=== PATIENT | female | born 1940 | race Caucasian/White ===

== ENCOUNTER → 2017-05-27 | Outpatient (CLI) | payer OTHER, BC ==
[~2017-05-27] MED LIST: ANT25 PO; ASCA500 PO; CHOL1TAB4 PO; CYM/30 PO; DICL1GEL12 TD; ESCI1TAB9 PO; EST5 PO; EVENCAP6 PO; FLUT0.0529 NAE; INTE1KIT4 IM; IODINE PO; LEVO75TA PO; MISCCAP80 PO; MULT-513 PO; MULT-663 PO; [UNRECOGNIZED DRUG - CODE] PO
[2017-05-27 12:20] LABS: BASO % 0.3 %; BASO ABS # 0.02 K/uL (0-0.2); COMPLETE YES; EOS % 10.2 %; HEMATOCRIT 42.6 % (37-47); LYMPH % 20.9 %; LYMPH ABS # 1.33 K/uL (1.2-3.4); MEAN CELL VOLUME 92.4 fL (80-100); MEAN CORPUSCULAR HEMOGLOBIN 30.2 pg (25-34); MEAN CORPUSCULAR HGB CONC 32.6 g/dl (32-36); MEAN PLATELET VOLUME 10.4 fL (7.4-10.4); MONO % 11.3 %; NEUT % 57.3 %; PLATELET COUNT 285 K/uL (130-400); RED BLOOD COUNT 4.61 M/uL (4.2-5.4); WHITE BLOOD COUNT 6.37 K/uL (4.8-10.8)
[2017-05-27 12:41] LABS: ALT/SGPT 29 U/L (12-78); AST/SGOT 15 U/L (15-37); BLOOD UREA NITROGEN 22 mg/dl (7-18); BUN/CREATININE RATIO 28.6 (10-20); CALCIUM 9.2 mg/dl (8.5-10.1); CARBON DIOXIDE 29 mmol/L (21-32); CHLORIDE 106 mmol/L (98-107); CREATININE 0.78 mg/dl (0.60-1.20); GLUCOSE 83 mg/dl (70-99); POTASSIUM 4.3 mmol/L (3.5-5.1); SODIUM 141 mmol/L (136-145)
[2017-05-27 12:51] LABS: ALKALINE PHOSPHATASE 83 U/L (45-117); THYROID STIMULATING HORMONE 0.637 uIu/ml (0.300-4.500)
== END | disposition home or self-care (01) ==
LOC: C.LAB1850 10:27
PROVIDERS: ATTEND Internal Medicine
DX: G35 Multiple sclerosis (principal); E55.9 Vitamin D deficiency, unspecified; E03.9 Hypothyroidism, unspecified

== ENCOUNTER → 2017-07-05 | Outpatient (CLI) | payer OTHER, BC | END | disposition home or self-care (01) | LOC: C.MAMM 11:17 | PROVIDERS: ATTEND Internal Medicine | DX: M85.851 Other specified disorders of bone density and structure, right thigh (principal); M85.852 Other specified disorders of bone density and structure, left thigh ==

== ENCOUNTER → 2017-11-24 | Outpatient (CLI) | payer OTHER, BC ==
[2017-11-24 13:11] LABS: BASO % 0.6 %; BASO ABS # 0.06 K/uL (0-0.2); EOS ABS # 0.74 K/uL (0-0.5); HEMOGLOBIN 15.1 g/dL (12.0-16.0); IG# 0.01 K/uL (0.00-0.02); LYMPH % 17.5 %; LYMPH ABS # 1.84 K/uL (1.2-3.4); MEAN CELL VOLUME 91.1 fL (80-100); MEAN CORPUSCULAR HEMOGLOBIN 30.6 pg (25-34); MEAN CORPUSCULAR HGB CONC 33.6 g/dl (32-36); MEAN PLATELET VOLUME 10.2 fL (7.4-10.4); MONO % 7.2 %; MONO ABS # 0.76 K/uL (0.11-0.59); NEUT % 67.6 %; NEUT ABS # 7.13 K/uL (1.4-6.5); PLATELET COUNT 301 K/uL (130-400); RED CELL DISTRIBUTION WIDTH CV 13.9 % (11.5-14.5); RED CELL DISTRIBUTION WIDTH SD 46.5 fL (36.4-46.3); WHITE BLOOD COUNT 10.54 K/uL (4.8-10.8)
[2017-11-24 13:39] LABS: ALBUMIN 3.8 gm/dl (3.4-5.0); ALT/SGPT 32 U/L (12-78); BLOOD UREA NITROGEN 26 mg/dl (7-18); CARBON DIOXIDE 27 mmol/L (21-32); CREATININE 0.93 mg/dl (0.60-1.20); GLUCOSE 84 mg/dl (70-99); POTASSIUM 4.7 mmol/L (3.5-5.1); SODIUM 139 mmol/L (136-145)
[2017-11-24 13:50] LABS: ALKALINE PHOSPHATASE 78 U/L (45-117); AST/SGOT 14 U/L (15-37); TOTAL PROTEIN 7.3 gm/dl (6.4-8.2)
== END | disposition home or self-care (01) ==
LOC: C.LAB1850 11:36
PROVIDERS: ATTEND Internal Medicine
DX: G35 Multiple sclerosis (principal); E03.9 Hypothyroidism, unspecified; E55.9 Vitamin D deficiency, unspecified

== ENCOUNTER 2021-06-09 14:49 | Inpatient (IN) ==
--- NOTE | 2021-06-09 15:27 | Emergency Department Note ---
History of Present Illness General Chief complaint: Fall Stated complaint: FALL Time Seen by Provider: 06/09/21 15:00 History of Present Illness Provider complaint: Fall left upper extremity left shoulder pain Onset (ago): day(s) 1 Location: upper extremity and left Radiation: non-radiation Severity: severe Maximum Pain Intensity: 8 Current Pain Intensity: 8 Quality: + aching and + sharp Relieved By: + immobilization Exacerbated By: + movement Associated symptoms: no chest pain, no cough, no fever/chills, no headaches, no nausea/vomiting, no shortness of breath or no weakness 81-year-old female presents emergency department for fall. Patient reports she fell today because she felt like her legs gave out. Patient does have a history of MS. Patient states she is not sure if she hit her head. Patient is currently reporting pain in her left upper extremity left shoulder. Pain is made worse by movement made better by immobilization. No chest pain or difficulty breathing. Home Medications Medication Instructions Recorded Confirmed Type multivitamin (Daily Multi-Vitamin) 1 tab PO QAM 04/06/19 06/09/21 History ascorbic acid (vitamin C) 500 mg 500 mg PO DAILY cap 04/19/19 06/09/21 History capsule cetirizine 10 mg tablet 10 mg PO DAILY PRN #90 tab 06/14/19 06/09/21 Rx albuterol sulfate 90 mcg/actuation 1 puffs INH Q6H PRN #8.5 gm 08/31/19 06/09/21 Rx aerosol inhaler (Proventil HFA) cholecalciferol (vitamin D3) 1,250 50,000 units PO WEEKLY #12 cap 10/19/19 06/09/21 Rx mcg (50,000 unit) capsule oxybutynin chloride 10 mg 10 mg PO DAILY #90 tab 01/15/20 06/09/21 Rx tablet,extended release 24 hr duloxetine 30 mg capsule,delayed 30 mg PO QPM #90 cap 04/04/21 06/09/21 Rx release amoxicillin 875 mg-potassium 1 tab PO BID #14 tab 06/09/21 Rx clavulanate 125 mg tablet (Augmentin) levothyroxine 75 mcg tablet 75 mcg PO DAILY 06/09/21 06/09/21 History oxycodone 5 mg tablet 5 mg PO Q8H PRN #11 tab 06/09/21 Rx Allergies Allergy/AdvReac Type Severity Reaction Status Date / Time animal dander Allergy Intermediate SNEEZING, Verified 06/09/21 16:08 CONGESTION gluten Allergy Intermediate GLUTEN Verified 06/09/21 16:08 INTOLERANT-GI UPSET ibuprofen Allergy Mild ? UNKNOWN Verified 06/09/21 16:08 - "SO LONG AGO" Sulfa (Sulfonamide Allergy Unknown DIARRHEA Verified 06/09/21 16:08 Antibiotics) donepezil AdvReac Intermediate nightmares Verified 06/09/21 16:08 lactase [From Dairy Aid] AdvReac Intermediate Gastrointestinal Verified 06/09/21 16:08 Upset baclofen AdvReac Unknown CAN'T Verified 06/09/21 16:08 REMEMBER chocolate flavor AdvReac Unknown CAN'T Verified 06/09/21 16:08 REMEMBER milk AdvReac Unknown GI UPSET Verified 06/09/21 16:08 sulfabenzamide AdvReac Unknown CAN'T Verified 06/09/21 16:08 REMEMBER sulfamethoxazole AdvReac Unknown CAN'T Verified 06/09/21 16:08 [From Bactrim] REMEMBER trimethoprim [From Bactrim] AdvReac Unknown CAN'T Verified 06/09/21 16:08 REMEMBER Past Med/Surg History Medical History Actinic keratosis Allergic rhinitis Asthma Bee sting Chest pain Cholelithiasis Depression with anxiety Facial swelling Gait disturbance Hypothyroidism Lumbar canal stenosis Multiple sclerosis Multiple sclerosis Osteopenia Peripheral neuropathy Vitamin D deficiency disease Surgical History No pertinent past surgical history Family History Father Lung cancer Mother Brain cancer Grandmother Stroke Denies family history of Ovarian cancer Prostate cancer Myocardial infarction Breast cancer Colorectal cancer Social History Smoking Status: Never smoker Second Hand Exposure: Yes; Hx Alcohol Use: Yes Hx Substance Use: No Preferred Language: Belarusian Communication Ability: Effective Visual Impairment: Partially Limited Hearing Ability: Normal Beliefs That Will Affect Care: None marital status: Current Living Situation: Spouse current occupational status: retired How many Children do You have: 3 How many Children do You have Comment: 3 boys Feels Safe at Home: Yes Childhood Exposure to Second-Hand Smoke: No during the past year weight has: remained stable Dental Care, Regularly: Yes Physical Activity Frequency: 3-4 Times per Week Seatbelt Use: always Sunscreen Use: Yes Review of Systems A total of 10 systems reviewed and were otherwise negative Physical Exam Vital Signs Vital Signs - 24 hr 06/09/21 14:56 06/09/21 15:16 06/09/21 16:59 Temperature 36.1 C L Temperature Source Rectal Pulse Rate 86 83 Pulse Rate [Apical] 73 Pulse Rhythm Regular Respiratory Rate 16 20 14 Respiratory Effort / Characteristics Non-Labored Respiratory Depth Normal Respiratory Pattern Regular Blood Pressure 126/81 Blood Pressure [Right Arm] 138/78 Blood Pressure Mean 96 Blood Pressure Mean [Right Arm] 98 Blood Pressure Position [Right Arm] Lying Pulse Oximetry 97 96 98 Oxygen Delivery Method Room Air Room Air Room Air Sepsis Recent Fever Within 48 Hours No Sepsis New/Unexplained Change in Mental Status No Sepsis Action Taken by Nursing No Action Required 06/09/21 17:00 06/09/21 17:30 06/09/21 18:00 Temperature Temperature Source Pulse Rate 70 70 91 H Pulse Rate [Apical] Pulse Rhythm Respiratory Rate 17 12 14 Respiratory Effort / Characteristics Respiratory Depth Respiratory Pattern Blood Pressure 133/77 124/76 152/85 H Blood Pressure [Right Arm] Blood Pressure Mean 95 92 107 Blood Pressure Mean [Right Arm] Blood Pressure Position [Right Arm] Pulse Oximetry 99 95 98 Oxygen Delivery Method Sepsis Recent Fever Within 48 Hours Sepsis New/Unexplained Change in Mental Status Sepsis Action Taken by Nursing 06/09/21 18:07 06/09/21 18:30 06/09/21 19:00 Temperature Temperature Source Pulse Rate 91 H 90 Pulse Rate [Apical] 92 H Pulse Rhythm Respiratory Rate 20 12 15 Respiratory Effort / Characteristics Non-Labored Respiratory Depth Normal Respiratory Pattern Blood Pressure 144/86 H 144/92 H Blood Pressure [Right Arm] 145/92 H Blood Pressure Mean 105 109 Blood Pressure Mean [Right Arm] 109 Blood Pressure Position [Right Arm] Pulse Oximetry 100 97 96 Oxygen Delivery Method Room Air Sepsis Recent Fever Within 48 Hours Sepsis New/Unexplained Change in Mental Status Sepsis Action Taken by Nursing 06/09/21 20:00 Temperature Temperature Source Pulse Rate Pulse Rate [Apical] 88 Pulse Rhythm Respiratory Rate 20 Respiratory Effort / Characteristics Non-Labored Respiratory Depth Normal Respiratory Pattern Blood Pressure Blood Pressure [Right Arm] 130/86 Blood Pressure Mean Blood Pressure Mean [Right Arm] 100 Blood Pressure Position [Right Arm] Sitting Pulse Oximetry 96 Oxygen Delivery Method Room Air Sepsis Recent Fever Within 48 Hours Sepsis New/Unexplained Change in Mental Status Sepsis Action Taken by Nursing Physical Exam HENT: Exam performed. -Head: Normocephalic and atraumatic. -Right Ear: External ear normal. No mastoid tenderness. -Left Ear: External ear normal. No mastoid tenderness. -Mouth/Throat: The oropharynx is clear and moist. No trismus in the jaw. No dental abscesses or uvula swelling. No oropharyngeal exudate or tonsillar abscesses. EYES: Conjunctivae and EOM are normal. Pupils are equal, round, and reactive to light. Right eye exhibits no discharge. Left eye exhibits no discharge. No scleral icterus. NECK: Normal range of motion. Neck supple. No JVD present. No spinous process tenderness present. CV: Normal rate, regular rhythm, normal heart sounds and intact distal pulses. There is no peripheral edema. Palpable radial pulses bue. PULM/CHEST: Effort normal and breath sounds normal. No respiratory distress. No stridor. She has no wheezes. She has no rales. -Chest Wall: She exhibits no tenderness. ABD: The abdomen is soft. There is no tenderness. MUSC/SKEL: Pelvis stable. Pain on palpation of the left shoulder and proximal humerus. LYMPH: No cervical adenopathy. NEURO: She is alert and oriented to person, place, and time.No cranial nerve d eficit or sensory deficit. SKIN: Diaphoretic. Course Course 1500: The patient was evaluated in room B3. A complete history and physical exam was performed Cardiac monitoring: An order was placed for continuous cardiac monitoring. The monitor shows a rate of 90 with sinus rhythm 1743: Vital signs stable. Imaging shows a left humerus fracture. Imaging also shows a developing diverticulitis. Labs within normal limits with exception of mild leukocytosis of 12.4. Discussed the case with the patient and her at bedside. Patient was offered inpatient stay for pain control and to be evaluated by orthopedics however she states she prefers to be discharged home. at bedside is in agreement. Discussed the case with on-call orthopedist Dr. Beaver who reviewed the patient's films himself and stated that she can follow-up with him tomorrow morning. Her contact information was given to him. Patient will be discharged with prescriptions for Augmentin for diverticulitis as well as analgesia. First dose of Augmentin given the emergency department. Analgesia home pack and Augmentin home pack given for the patient. DISCHARGE - Plan of care discussed with patient and questions answered. The patient was given both verbal and printed discharge instructions. The patient verbalized understanding and ability to comply. The patient is to seek outpatient follow up as noted in the discharge instructions. The patient verbalized understanding and ability to comply. The patient is discharged in stable condition. The patient was instructed to return for worsening symptoms. 1936: Vital signs stable. Patient was not able to tolerate walking with an arm sling using her cane given her severe MS. states he cannot take care of the patient at home and patient is now nervous about being discharged home. Discussed with [facility] hospitalist Dr. Melendrez who will admit the patient. Administered Medications Acetaminophen (Acetaminophen 325 Mg Tab) 650 mg PO Q4H PRN PRN Reason: pain/fever Stop: 07/09/21 22:34 Last Admin: 06/09/21 23:03 Dose: 650 mg Documented by: [id number] Duloxetine HCl (Duloxetine Hcl 30 Mg Cap) 30 mg PO QPM DOTTY Stop: 07/09/21 22:34 Last Admin: 06/09/21 23:08 Dose: 30 mg Documented by: [id number] Enoxaparin Sodium (Enoxaparin Inj 40 Mg/0.4 Ml Syr) 40 mg SQ Q24H DOTTY Stop: 07/09/21 22:59 Last Admin: 06/09/21 23:08 Dose: 40 mg Documented by: [id number] Discontinued Medications Amoxicillin/Clavulanate Potassium (Amoxicillin/Clavulanate 875 Mg Tab) 1 tab PO NOW ONE Stop: 06/09/21 17:40 Last Admin: 06/09/21 18:35 Dose: 1 tab Documented by: [id number] Amoxicillin/Clavulanate Potassium (Amoxicillin/Clavulanate 875mg Home Pack) 1 homepack PO ONE ONE Stop: 06/09/21 17:40 Last Admin: 06/09/21 19:13 Dose: 1 homepack Documented by: [id number] Sodium Chloride (Nss) 500 mls @ 125 mls/hr IV .Q4H DOTTY Stop: 07/09/21 15:14 Last Admin: 06/09/21 22:48 Dose: Not Given Documented by: [id number] Infusion: 06/09/21 19:37 Dose: 125 mls/hr Documented by: [id number] Infusion: 06/09/21 19:15 Dose: 125 mls/hr Documented by: [id number] Admin: 06/09/21 15:30 Dose: 125 mls/hr Documented by: [id number] Ioversol (Optiray 320 100ml) 94 ml IV ONCE ONE Stop: 06/09/21 16:33 Last Admin: 06/09/21 16:32 Dose: 94 ml Documented by: [id number] Oxycodone/Acetaminophen (Percocet 5/325mg Homepack) 1 homepack PO UD ONE Stop: 06/09/21 17:40 Last Admin: 06/09/21 19:13 Dose: 1 homepack Documented by: [id number] Oxycodone/Acetaminophen (Oxycodone/Acetaminophen 5mg/325mg Tab) 1 tab PO NOW STA Stop: 06/09/21 17:43 Last Admin: 06/09/21 18:10 Dose: 1 tab Documented by: [id number] Medical Decision Making Laboratory Data Result diagrams: 06/09/21 15:30 06/09/21 15:30 Lab Results 06/09/21 06/09/21 06/09/21 Range/Units 15:21 15:30 15:30 WBC 12.35 H (4.8-10.8) K/uL RBC 4.70 (4.2-5.4) M/uL Hgb 14.7 (12.0-16.0) g/dL Hct 43.6 (37-47) % MCV 92.8 (80-100) fL MCH 31.3 (25-34) pg MCHC 33.7 (32-36) g/dL RDW Std Deviation 44.8 (36.4-46.3) fL RDW Coeff of Kelsie 13.1 (11.5-14.5) % Plt Count 282 (130-400) K/uL MPV 9.9 (7.4-10.4) fL Immature Gran % (Auto) 0.1 % Neut % (Auto) 82.4 % Lymph % (Auto) 9.6 % [place] % (Auto) 6.7 % Eos % (Auto) 1.0 % Baso % (Auto) 0.2 % Neut # (Auto) 10.18 H (1.4-6.5) K/uL Lymph # (Auto) 1.19 L (1.2-3.4) K/uL [place] # (Auto) 0.83 H (0.11-0.59) K/uL Eos # (Auto) 0.12 (0-0.5) K/uL Baso # (Auto) 0.02 (0-0.2) K/uL Immature Gran # (Auto) 0.01 (0.00-0.02) K/uL PT 10.0 (9.0-12.0) Seconds INR 1.0 (0.9-1.1) APTT 24.2 (21.0-31.0) Seconds PTT Ratio 0.9 Sodium (136-145) mmol/L Potassium (3.5-5.1) mmol/L Chloride (98-107) mmol/L Carbon Dioxide (21-32) mmol/L Anion Gap (3-11) BUN (7-18) mg/dl Creatinine (0.6-1.2) mg/dl Est Cr Clr Drug Dosing ml/min Est GFR ( Amer) ml/min Est GFR (Non-Af Amer) ml/min BUN/Creatinine Ratio (10-20) Glucose (70-99) mg/dl POC Glucose 115 H (70-99) mg/dl Calcium (8.5-10.1) mg/dl Total Creatine Kinase (26-192) U/L Troponin I (0-0.045) ng/ml Urine Color Urine Appearance (Clear) Urine pH (4.5-7.5) Ur Specific [place] (1.000-1.030) Urine Protein (Negative) Urine Glucose (UA) (Negative) Urine Ketones (Negative) Urine Blood (Negative) Urine Nitrite (Negative) Urine Bilirubin (Negative) Urine Urobilinogen (Negative) Ur Leukocyte Esterase (Negative) 06/09/21 06/09/21 Range/Units 15:30 15:36 WBC (4.8-10.8) K/uL RBC (4.2-5.4) M/uL Hgb (12.0-16.0) g/dL Hct (37-47) % MCV (80-100) fL MCH (25-34) pg MCHC (32-36) g/dL RDW Std Deviation (36.4-46.3) fL RDW Coeff of Kelsie (11.5-14.5) % Plt Count (130-400) K/uL MPV (7.4-10.4) fL Immature Gran % (Auto) % Neut % (Auto) % Lymph % (Auto) % [place] % (Auto) % Eos % (Auto) % Baso % (Auto) % Neut # (Auto) (1.4-6.5) K/uL Lymph # (Auto) (1.2-3.4) K/uL [place] # (Auto) (0.11-0.59) K/uL Eos # (Auto) (0-0.5) K/uL Baso # (Auto) (0-0.2) K/uL Immature Gran # (Auto) (0.00-0.02) K/uL PT (9.0-12.0) Seconds INR (0.9-1.1) APTT (21.0-31.0) Seconds PTT Ratio Sodium 139 (136-145) mmol/L Potassium 3.7 (3.5-5.1) mmol/L Chloride 107 (98-107) mmol/L Carbon Dioxide 21 (21-32) mmol/L Anion Gap 11.0 (3-11) BUN 32 H (7-18) mg/dl Creatinine 0.93 (0.6-1.2) mg/dl Est Cr Clr Drug Dosing 43.1 ml/min Est GFR ( Amer) 66.3 ml/min Est GFR (Non-Af Amer) 57.2 ml/min BUN/Creatinine Ratio 34.2 H (10-20) Glucose 130 H (70-99) mg/dl POC Glucose (70-99) mg/dl Calcium 9.1 (8.5-10.1) mg/dl Total Creatine Kinase 49 (26-192) U/L Troponin I < 0.015 (0-0.045) ng/ml Urine Color Yellow Urine Appearance Clear (Clear) Urine pH 5.5 (4.5-7.5) Ur Specific [place] 1.027 (1.000-1.030) Urine Protein Negative (Negative) Urine Glucose (UA) Negative (Negative) Urine Ketones 1+ H (Negative) Urine Blood Negative (Negative) Urine Nitrite Negative (Negative) Urine Bilirubin Negative (Negative) Urine Urobilinogen Negative (Negative) Ur Leukocyte Esterase Negative (Negative) Imaging Data Radiologist's Impression: Cervical Spine CT 06/09/21 15:06 CT SCAN OF THE CERVICAL SPINE CLINICAL HISTORY: Trauma. Fall. COMPARISON STUDY: No priors. TECHNIQUE: CT scan of the cervical spine is performed from the skull base to the upper thoracic spine. Images are reviewed in the axial, sagittal, and coronal planes. IV contrast was not administered for this examination. A dose lowering technique was utilized adhering to the principles of ALARA. CT DOSE: 1501.60 mGy.cm FINDINGS: Skeletal structures: The skeletal structures are osteopenic. There is no evidence of fracture or subluxation involving the cervical spine. Vertebral body height is maintained. There is minimal anterolisthesis at C4-C5. Alignment is otherwise preserved. Anterior osteophytes are seen throughout. The odontoid process and lateral masses are intact. The atlantoaxial articulation is preserved noting productive degenerative change. The spinous processes appear intact. There is mild to moderate multilevel cervical spondylosis. Uncovertebral and facet arthropathy contribute to neural foraminal narrowing at several levels. Intervertebral discs: There is moderate disc space narrowing at C4-C5 and C5-C6. Mild disc space narrowing is seen at the remaining cervical levels. Central canal: Posterior disc osteophyte complexes are seen at all cervical levels between C3-C4 and C5-C6. This likely contributes to multilevel acquired compromise of the central canal. Soft tissues: The prevertebral and paraspinous soft tissues are within normal limits. There is atherosclerotic calcification of the carotid bulbs. Calvarium: The visualized calvarium at the skull base appears intact. Brain parenchyma: Partially visualized brain parenchyma at the skull base is within normal limits. Sinuses and mastoids: The visualized paranasal sinuses are clear. The mastoid air cells are well pneumatized. Lung apices: Clear as visualized. IMPRESSION: 1. There is no evidence of fracture or subluxation involving the cervical spine. 2. Osteopenia and spondylotic change as above. ACT 112: Negative or not required by law. Electronically signed by: Brando Wallace M.D. 06/09/2021 4:52 PM Chest X-Ray 06/09/21 15:08 XR chest 1V portable INDICATION: [place] ^fall . TECHNIQUE: Single frontal radiograph of the chest was obtained. Comparison: Comparison is made to chest one view 11/14/2018 FINDINGS: No lines and tubes are seen. The cardiomediastinal silhouette is normal. The lungs are clear. No evidence of pleural effusion or pneumothorax. Partial visualization of the humeral head/neck fracture better evaluated on dedicated shoulder and humeral radiographs. IMPRESSION: 1. No acute chest disease. 2. For detailed findings of humeral fracture, please see dedicated humerus and shoulder radiographs performed same day. ACT 112: Negative or not required by law. Electronically signed by: Adi Swan M.D. 06/09/2021 4:[address] 06/09/21 15:08 CT SCAN OF THE BRAIN WITHOUT IV CONTRAST CLINICAL HISTORY: Fall. COMPARISON STUDY: MRI of the brain dated 04/04/2018. TECHNIQUE: Unenhanced axial CT scan of the brain is performed from the vertex to the skull base. A dose lowering technique was utilized adhering to the principles of ALARA. FINDINGS: Brain parenchyma: There are age-related involutional changes noting moderate to advanced confluent subcortical and periventricular microangiopathic change. There is no hemorrhage, mass effect, or evidence of acute territorial ischemia by CT criteria. Mcdonough-white matter differentiation is preserved. No extra-axial fluid collection is seen. Ventricles, sulci, cisterns: Prominent secondary to involutional change. Intracranial vasculature: There is atherosclerotic calcification of the cavernous carotid and vertebral arteries. Calvarium: The skeletal structures are osteopenic. No depressed calvarial fracture is identified. Sinuses and mastoids: The visualized paranasal sinuses are clear. The mastoid air cells are well pneumatized. Orbits: The bony orbits are grossly intact. There are bilateral ocular lens implants. IMPRESSION: There is no hemorrhage, mass effect, or evidence of acute territorial ischemia by CT criteria. ACT 112: Negative or not required by law. Electronically signed by: Brando Wallace M.D. 06/09/2021 4:44 PM Humerus X-Ray 06/09/21 15:08 LEFT SHOULDER 2 VIEWS; LEFT HUMERUS 2 VIEWS CLINICAL HISTORY: Fall. Left arm injury. FINDINGS: 2 views of the left shoulder with AP and lateral views of the left humerus are obtained. No prior studies are available for comparison at the time of dictation. The skeletal structures are osteopenic. There is an impacted and comminuted fracture of the left humeral head and neck. There is approximately 7 mm of offset of the humeral shaft at the head/neck junction, as well as displaced fragments of the greater tuberosity. Overlying soft tissue edema is noted. No additional fracture is identified. The glenohumeral and acromioclavicular joints appear maintained. The distal humerus appears intact. The left elbow joint is grossly normal. Imaged left lung parenchyma appears clear noting basilar atelectasis. IMPRESSION: Impacted and comminuted fracture of the left humeral head and neck as above. Electronically signed by: Brando Wallace M.D. 06/09/2021 4:03 PM Shoulder X-Ray 06/09/21 15:08 LEFT SHOULDER 2 VIEWS; LEFT HUMERUS 2 VIEWS CLINICAL HISTORY: Fall. Left arm injury. FINDINGS: 2 views of the left shoulder with AP and lateral views of the left humerus are obtained. No prior studies are available for comparison at the time of dictation. The skeletal structures are osteopenic. There is an impacted and comminuted fracture of the left humeral head and neck. There is approximately 7 mm of offset of the humeral shaft at the head/neck junction, as well as displaced fragments of the greater tuberosity. Overlying soft tissue edema is noted. No additional fracture is identified. The glenohumeral and acromioclavicular joints appear maintained. The distal humerus appears intact. The left elbow joint is grossly normal. Imaged left lung parenchyma appears clear noting basilar atelectasis. IMPRESSION: Impacted and comminuted fracture of the left humeral head and neck as above. Electronically signed by: Brando Wallace M.D. 06/09/2021 4:03 PM Abdomen/Pelvis CT 06/09/21 15:09 CT abd pelvis IV con only CLINICAL HISTORY: fall COMPARISON STUDY: November 06, 2011 TECHNIQUE: A dose lowering technique was utilized adhering to the principles of ALARA. CT DOSE: FINDINGS: Lower chest: Minimal atelectasis is seen at dependent portions of bilateral lower lobes.. Liver: The contrast-enhanced liver is normal in size, contour, and attenuation. There is no intrahepatic biliary ductal dilatation. The hepatic veins and portal veins are patent. Gallbladder: Gallbladder is fluid-filled, dilated with multiple gallstones and measuring 8.7 cm in craniocaudal dimension. No evidence of pericholecystic edema or gallbladder wall thickening. Common bile duct is nondilated. Spleen: Normal in size and attenuation. Pancreas: Unremarkable. Adrenal glands: Unremarkable. Kidneys: There is symmetric renal cortical enhancement. The kidneys are normal in size without hydronephrosis. Pelvic viscera: Urinary bladder is partially decompressed and show normal appe arance. Uterus is atrophic. No fluid is seen within cul-de-sac. Bowel: Small hiatal hernia is seen. Bowel loops are nondilated. Appendix is not well seen. Diverticulosis of the cecum is seen. Cecum is folded anteriorly and superiorly and associated with mild surrounding fat stranding (7/205) and most likely representing developing diverticulitis. Cecal bascule is less likely. Diverticulosis of sigmoid colon is seen without evidence of diverticulitis. Peritoneum: There is no intraperitoneal free air or abdominal ascites. Vasculature: Abdominal aorta is normal in caliber with scattered calcifications of its wall. Adenopathy: Multiple small lymph nodes are seen within retroperitoneal region and mesentery, measuring less than 1 cm in short axis and considered nonpathological by CT size criteria. Skeletal structures: Multilevel degenerative changes of the spine. Mild anterolisthesis of L4 on L5 and L5 on S1 is seen. No definite aggressive osseous lesions are seen. No evidence of acute fracture . IMPRESSION: 1. No acute traumatic injury to the solid organs or vascular structures. Nondilated loops of bowel. 2. Moderate hiatal hernia. 3. Dilated gallbladder. Cholelithiasis without cholecystitis. Findings are stable since prior. 4. Diverticulosis of cecum with surrounding inflammatory changes likely representing developing diverticulitis. Diverticulosis of sigmoid colon is seen without evidence of diverticulitis. 5. Multilevel degenerative changes of the spine and osteopenia. 6. The rest of findings as above. ACT 112: Negative or not required by law. The above report was generated using voice recognition software. It may contain grammatical, syntax or spelling errors. Electronically signed by: Melissa Lindo DO 06/09/2021 5:08 PM Pelvis X-Ray 06/09/21 15:09 SINGLE VIEW PELVIS CLINICAL HISTORY: Fall. FINDINGS: 2 AP, portable, supine pelvic radiographs are correlated with pelvic CT dated 11/06/2011. The skeletal structures are osteopenic. There is no radiographic evidence of acute fracture involving the hips or bony pelvis. Mild to moderate degenerative joint space narrowing is seen in the hips. Degenerative sclerosis is noted in the sacroiliac joints. Spondylotic change is seen in the partially imaged lumbar spine. The overlying soft tissues are within normal limits. Numerous phleboliths are seen in the pelvis. There is atherosclerotic calcification of the femoral arteries. IMPRESSION: No acute bony abnormality is identified. Electronically signed by: Brando Wallace M.D. 06/09/2021 4:01 PM Femur X-Ray 06/09/21 16:42 LEFT FEMUR 3 VIEWS CLINICAL HISTORY: Fall. Left leg pain. FINDINGS: AP, frog-leg, and crosstable lateral views of the left femur are correlated with pelvic radiograph performed the same day 06/09/2021. The skeletal structures are osteopenic. There is no radiographic evidence of left femoral fracture. The visualized left hemipelvis appears intact. Degenerative joint space narrowing is noted in the left hip. The overlying soft tissues are normal as imaged. Excreted IV contrast is seen within the distal left ureter and the partially imaged bladder. Atherosclerotic calcification is noted in the left femoral artery. IMPRESSION: There is no radiographic evidence of left femoral fracture. Electronically signed by: Brando Wallace M.D. 06/09/2021 5:02 PM ECG Data Indication: + syncope Rate (beats per minute): 86 Rhythm: + normal sinus ECG Intervals/blocks: + Normal [place] and + Normal QT-c Additional Comments: QRS 78 MDM Narrative 1500: The patient was evaluated in room B3. A complete history and physical exam was performed Cardiac monitoring: An order was placed for continuous cardiac monitoring. The monitor shows a rate of 90 with sinus rhythm 1743: Vital signs stable. Imaging shows a left humerus fracture. Imaging also shows a developing diverticulitis. Labs within normal limits with exception of mild leukocytosis of 12.4. Discussed the case with the patient and her at bedside. Patient was offered inpatient stay for pain control and to be evaluated by orthopedics however she states she prefers to be discharged home. at bedside is in agreement. Discussed the case with on-call orthopedist Dr. Beaver who reviewed the patient's films himself and stated that she can follow-up with him tomorrow morning. Her contact information was given to him. Patient will be discharged with prescriptions for Augmentin for diverticulitis as well as analgesia. First dose of Augmentin given the emergency department. Analgesia home pack and Augmentin home pack given for the patient. DISCHARGE - Plan of care discussed with patient and questions answered. The patient was given both verbal and printed discharge instructions. The patient verbalized understanding and ability to comply. The patient is to seek outpatient follow up as noted in the discharge instructions. The patient verbalized understanding and ability to comply. The patient is discharged in stable condition. The patient was instructed to return for worsening symptoms. 1936: Vital signs stable. Patient was not able to tolerate walking with an arm sling using her cane given her severe MS. states he cannot take care of the patient at home and patient is now nervous about being discharged home. Discussed with [facility] hospitalist Dr. Melendrez who will admit the patient. Impression & Plan Fracture, humerus, Diverticulitis Discharge Plan Visit Data Chief Complaint: Fall Stated Complaint: FALL ED Provider: Jus Berger Discharge Problem: Fracture, humerus, Diverticulitis Patient Disposition: Being Evaluated by Hospitalist Discharge Instructions Interventions: ED Discharge Assessment Last Done: 06/09/21 22:00
[2021-06-09] MEDS: SODIUM CHLORIDE 0.9% 500 ML IV SCH ×2 (15:30→22:48)
[2021-06-09 15:49] LABS: Basophils # (auto) 0.02 K/uL (0-0.2); Basophils % (auto) 0.2 %; Eosinophils # (auto) 0.12 K/uL (0-0.5); Hematocrit (blood only) 43.6 % (37-47); Hemoglobin 14.7 g/dL (12.0-16.0); Immature Granulocytes # (auto) 0.01 K/uL (0.00-0.02); Immature Granulocytes % (auto) 0.1 %; Lymphocytes # (auto) 1.19 K/uL (1.2-3.4); Lymphocytes % (auto) 9.6 %; Mean Corpuscular Hemoglobin 31.3 pg (25-34); Mean Corpuscular Hgb Conc 33.7 g/dL (32-36); Mean Corpuscular Volume 92.8 fL (80-100); Mean Platelet Volume 9.9 fL (7.4-10.4); Monocytes # (auto) 0.83 K/uL (0.11-0.59); Monocytes % (auto) 6.7 %; Neutrophils # (auto) 10.18 K/uL (1.4-6.5); Neutrophils % (auto) 82.4 %; Platelet Count 282 K/uL (130-400); RDW Coefficient of Variation 13.1 % (11.5-14.5); RDW Standard Deviation 44.8 fL (36.4-46.3); White Blood Count 12.35 K/uL (4.8-10.8)
[2021-06-09 15:57] LABS: Appearance Urine Clear (Clear); Bilirubin Urine Negative (Negative); Blood Urine Negative (Negative); Color Urine Yellow; Glucose Urine UA Negative (Negative); Ketones Urine 1+ (Negative); Leukocyte Esterase Urine Negative (Negative); Nitrite Urine Negative (Negative); Protein Urine Negative (Negative); Specific Gravity Urine 1.027 (1.000-1.030); Urobilinogen Urine Negative (Negative); pH Urine 5.5 (4.5-7.5)
--- NOTE | 2021-06-09 16:03 | XRay Report ---
SINGLE VIEW PELVIS CLINICAL HISTORY: Fall. FINDINGS: 2 AP, portable, supine pelvic radiographs are correlated with pelvic CT dated 11/06/2011. Th e skeletal structures are osteopenic. There is no radiographic evidence of acute fracture involving t he hips or bony pelvis. Mild to moderate degenerative joint space narrowing is seen in the hips. Dege nerative sclerosis is noted in the sacroiliac joints. Spondylotic change is seen in the partially breanne ged lumbar spine. The overlying soft tissues are within normal limits. Numerous phleboliths are seen in the pelvis. There is atherosclerotic calcification of the femoral arteries. IMPRESSION: No acute bony abnormality is identified. Electronically signed by: Brando Wallace M.D. 06/09/2021 4:01 PM
[2021-06-09 16:04] LABS: Partial Thromboplastin Ratio 0.9; Partial Thromboplastin Time 24.2 Seconds (21.0-31.0)
--- NOTE | 2021-06-09 16:05 | XRay Report ---
LEFT SHOULDER 2 VIEWS; LEFT HUMERUS 2 VIEWS CLINICAL HISTORY: Fall. Left arm injury. FINDINGS: 2 views of the left shoulder with AP and lateral views of the left humerus are obtained. No prior studies are available for comparison at the time of dictation. The skeletal structures are ost eopenic. There is an impacted and comminuted fracture of the left humeral head and neck. There is shea roximately 7 mm of offset of the humeral shaft at the head/neck junction, as well as displaced fragme nts of the greater tuberosity. Overlying soft tissue edema is noted. No additional fracture is identi fied. The glenohumeral and acromioclavicular joints appear maintained. The distal humerus appears int act. The left elbow joint is grossly normal. Imaged left lung parenchyma appears clear noting basilar atelectasis. IMPRESSION: Impacted and comminuted fracture of the left humeral head and neck as above. Electronically signed by: Brando Wallace M.D. 06/09/2021 4:03 PM
--- NOTE | 2021-06-09 16:05 | XRay Report ---
XR chest 1V portable INDICATION: [place] ^fall . TECHNIQUE: Single frontal radiograph of the chest was obtained. Comparison: Comparison is made to chest one view 11/14/2018 FINDINGS: No lines and tubes are seen. The cardiomediastinal silhouette is normal. The lungs are clear. No evid ence of pleural effusion or pneumothorax. Partial visualization of the humeral head/neck fracture better evaluated on dedicated shoulder and hu meral radiographs. IMPRESSION: 1. No acute chest disease. 2. For detailed findings of humeral fracture, please see dedicated humerus and shoulder radiographs performed same day. ACT 112: Negative or not required by law. Electronically signed by: Adi Swan M.D. 06/09/2021 4:04 PM
[2021-06-09 16:08] LABS: BUN Creatinine Ratio 34.2 (10-20); Blood Urea Nitrogen 32 mg/dl (7-18); Calcium 9.1 mg/dl (8.5-10.1); Carbon Dioxide 21 mmol/L (21-32); Chloride 107 mmol/L (98-107); Creatinine Clr Calc Pharmacy 43.1 ml/min; Est GFR (African American) 66.3 ml/min; Est GFR (Non-African American) 57.2 ml/min; Glucose 130 mg/dl (70-99); Potassium 3.7 mmol/L (3.5-5.1); Sodium 139 mmol/L (136-145)
[2021-06-09 16:12] LABS: Creatine Kinase 49 U/L (26-192); Troponin I < 0.015 ng/ml (0-0.045)
[2021-06-09] MEDS ORDERED: OPTIRAY 320 100ml IV ONE (16:32)
--- NOTE | 2021-06-09 16:45 | CT Scan Report ---
CT SCAN OF THE BRAIN WITHOUT IV CONTRAST CLINICAL HISTORY: Fall. COMPARISON STUDY: MRI of the brain dated 04/04/2018. TECHNIQUE: Unenhanced axial CT scan of the brain is performed from the vertex to the skull base. A do se lowering technique was utilized adhering to the principles of ALARA. FINDINGS: Brain parenchyma: There are age-related involutional changes noting moderate to advanced confluent s ubcortical and periventricular microangiopathic change. There is no hemorrhage, mass effect, or evide nce of acute territorial ischemia by CT criteria. Mcdonough-white matter differentiation is preserved. No extra-axial fluid collection is seen. Ventricles, sulci, cisterns: Prominent secondary to involutional change. Intracranial vasculature: There is atherosclerotic calcification of the cavernous carotid and vertebr al arteries. Calvarium: The skeletal structures are osteopenic. No depressed calvarial fracture is identified. Sinuses and mastoids: The visualized paranasal sinuses are clear. The mastoid air cells are well pneu matized. Orbits: The bony orbits are grossly intact. There are bilateral ocular lens implants. IMPRESSION: There is no hemorrhage, mass effect, or evidence of acute territorial ischemia by CT kirit black. ACT 112: Negative or not required by law. Electronically signed by: Brando Wallace M.D. 06/09/2021 4:44 PM
--- NOTE | 2021-06-09 16:53 | CT Scan Report ---
CT SCAN OF THE CERVICAL SPINE CLINICAL HISTORY: Trauma. Fall. COMPARISON STUDY: No priors. TECHNIQUE: CT scan of the cervical spine is performed from the skull base to the upper thoracic spine . Images are reviewed in the axial, sagittal, and coronal planes. IV contrast was not administered fo r this examination. A dose lowering technique was utilized adhering to the principles of ALARA. CT DOSE: 1501.60 mGy.cm FINDINGS: Skeletal structures: The skeletal structures are osteopenic. There is no evidence of fracture or subl uxation involving the cervical spine. Vertebral body height is maintained. There is minimal anterolis thesis at C4-C5. Alignment is otherwise preserved. Anterior osteophytes are seen throughout. The odon toid process and lateral masses are intact. The atlantoaxial articulation is preserved noting product nigel degenerative change. The spinous processes appear intact. There is mild to moderate multilevel ce rvical spondylosis. Uncovertebral and facet arthropathy contribute to neural foraminal narrowing at s everal levels. Intervertebral discs: There is moderate disc space narrowing at C4-C5 and C5-C6. Mild disc space narr owing is seen at the remaining cervical levels. Central canal: Posterior disc osteophyte complexes are seen at all cervical levels between C3-C4 and C5-C6. This likely contributes to multilevel acquired compromise of the central canal. Soft tissues: The prevertebral and paraspinous soft tissues are within normal limits. There is athero sclerotic calcification of the carotid bulbs. Calvarium: The visualized calvarium at the skull base appears intact. Brain parenchyma: Partially visualized brain parenchyma at the skull base is within normal limits. Sinuses and mastoids: The visualized paranasal sinuses are clear. The mastoid air cells are well pneu matized. Lung apices: Clear as visualized. IMPRESSION: 1. There is no evidence of fracture or subluxation involving the cervical spine. 2. Osteopenia and spondylotic change as above. ACT 112: Negative or not required by law. Electronically signed by: Brando Wallace M.D. 06/09/2021 4:52 PM
--- NOTE | 2021-06-09 17:03 | XRay Report ---
LEFT FEMUR 3 VIEWS CLINICAL HISTORY: Fall. Left leg pain. FINDINGS: AP, frog-leg, and crosstable lateral views of the left femur are correlated with pelvic rad iograph performed the same day 06/09/2021. The skeletal structures are osteopenic. There is no radiogr aphic evidence of left femoral fracture. The visualized left hemipelvis appears intact. Degenerative joint space narrowing is noted in the left hip. The overlying soft tissues are normal as imaged. Excr eted IV contrast is seen within the distal left ureter and the partially imaged bladder. Atherosclero tic calcification is noted in the left femoral artery. IMPRESSION: There is no radiographic evidence of left femoral fracture. Electronically signed by: Brando Wallace M.D. 06/09/2021 5:02 PM
--- NOTE | 2021-06-09 17:10 | CT Scan Report ---
CT abd pelvis IV con only CLINICAL HISTORY: fall COMPARISON STUDY: November 06, 2011 TECHNIQUE: A dose lowering technique was utilized adhering to the principles of ALARA. CT DOSE: FINDINGS: Lower chest: Minimal atelectasis is seen at dependent portions of bilateral lower lobes.. Liver: The contrast-enhanced liver is normal in size, contour, and attenuation. There is no intrahepa tic biliary ductal dilatation. The hepatic veins and portal veins are patent. Gallbladder: Gallbladder is fluid-filled, dilated with multiple gallstones and measuring 8.7 cm in cr aniocaudal dimension. No evidence of pericholecystic edema or gallbladder wall thickening. Common félix e duct is nondilated. Spleen: Normal in size and attenuation. Pancreas: Unremarkable. Adrenal glands: Unremarkable. Kidneys: There is symmetric renal cortical enhancement. The kidneys are normal in size without hydron ephrosis. Pelvic viscera: Urinary bladder is partially decompressed and show normal appearance. Uterus is atrop hic. No fluid is seen within cul-de-sac. Bowel: Small hiatal hernia is seen. Bowel loops are nondilated. Appendix is not well seen. Diverticul osis of the cecum is seen. Cecum is folded anteriorly and superiorly and associated with mild surroun ding fat stranding (7/205) and most likely representing developing diverticulitis. Cecal bascule is l ess likely. Diverticulosis of sigmoid colon is seen without evidence of diverticulitis. Peritoneum: There is no intraperitoneal free air or abdominal ascites. Vasculature: Abdominal aorta is normal in caliber with scattered calcifications of its wall. Adenopathy: Multiple small lymph nodes are seen within retroperitoneal region and mesentery, measur ing less than 1 cm in short axis and considered nonpathological by CT size criteria. Skeletal structures: Multilevel degenerative changes of the spine. Mild anterolisthesis of L4 on L5 a nd L5 on S1 is seen. No definite aggressive osseous lesions are seen. No evidence of acute fracture . IMPRESSION: 1. No acute traumatic injury to the solid organs or vascular structures. Nondilated loops of bowel. 2. Moderate hiatal hernia. 3. Dilated gallbladder. Cholelithiasis without cholecystitis. Findings are stable since prior. 4. Diverticulosis of cecum with surrounding inflammatory changes likely representing developing dive rticulitis. Diverticulosis of sigmoid colon is seen without evidence of diverticulitis. 5. Multilevel degenerative changes of the spine and osteopenia. 6. The rest of findings as above. ACT 112: Negative or not required by law. The above report was generated using voice recognition software. It may contain grammatical, syntax o r spelling errors. Electronically signed by: Melissa Lindo DO 06/09/2021 5:08 PM
[2021-06-09] MEDS ORDERED: PERCOCET 5/325MG HOMEPACK PO ONE (17:39)
[2021-06-09] MEDS ORDERED: AMOXICILLIN/CLAVULANATE 875 MG TAB PO ONE (17:39)
[2021-06-09] MEDS ORDERED: AMOXICILLIN/CLAVULANATE 875MG HOME PACK PO ONE (17:39)
[2021-06-09] MEDS ORDERED: oxyCODONE/ACETAMINOPHEN 5mg/325mg TAB PO STA (17:42)
--- NOTE | 2021-06-09 20:16 | History & Physical Report ---
Date of Service June 09, 2021 Assessment & Plan (1) Fracture, humerus: Plan: S/p fall at home related to unsteady gait and weakness - Sling - ICE therapy QID - Pain control- Tylenol 650mg PO q6hr PRN, oxy IR 5mg PO q6hr PRN moderate pain, Morphine 2mg IV q4hrs PRN severe pain - PT/OT consult- uses her other arm to help stabilize and hold on to objects while ambulating - Patient educated to call for staff while in hospital for assistance Patient does get up frequently in the night for bathroom needs- placed as high fall risk, with bed alarm ordered. (2) Diverticulitis: Plan: Diverticulosis of cecum with surrounding inflammatory changes likely representing developing diverticulitis - Continue Augmentin 875 BID - If worsening clinical picture- place on Zosyn and re-image (3) Multiple sclerosis: Plan: Follows with Neurology- DMARDS stopped in 11/09 - PT/OT evaluation for ambulatory need or support in regards to left arm immobile for multiple weeks in sling - May need rehab - Consider neurology consult following PT/OT evaluation if clinical symptoms appear to be resurfacing (4) Peripheral neuropathy: Plan: As above (5) Vitamin D deficiency disease: Plan: With osteopenia - continue colecalciferol (6) Hypothyroidism: Plan: Continue levothyroxine 75mcg daily (7) Gait disturbance: Plan: As above - PT/OT evaluation (8) Depression with anxiety: Plan: Continue duloxetine (9) Asthma: Plan: Mild with cough- controlled on albuterol inhaler 08/11/2019: FVC: 2.20/87 % (2% change), FEV1: 1.59/86 % (4% change), FEV1/FVC: 72 %/97 % (2% change), 25-75 %: 1.04/71 % (12% change), RV: 1.12/48 %, T.68/75 %, RV/T%/64%, DLCO: 70%, dL/VA: 87 % - no acute needs History of Present Illness Primary Care Provider: Agustin Delgado MD 81 YOF with past medical history of: MS (DMARDS stopped in 10/2019), lumbar canal stenosis, gait disturbance, depression/anxiety, asthma. Patient comes to the emergency department today s/p fall at home. The patient was getting up to go outside and fell over onto her side onto hard wood floor. Patient does not remember putting her hand out or hitting anything else. The patient has a history of MS and usually walks with her cane, but uses her other arm to help balance herself and hold herself steady. The patient and the feel she has been a little more unsteady on her feet over the past couple of weeks, but no other falls. In the EMD the patient had multiple radiological films performed to appropriately evaluate for other fractures. She was noted to have a left humerus fracture and was splinted. Incidental finding on her CT scan of abdomen and pelvis as "evolving diverticulitis". She denies any abdominal pain/diarrhea, fevers chills, was started on Augmentin oral. The patient was prepared for original discharge but was unstable on her feet which would likely to result in fall again. The patient is in a sling. She does endorse some left hip pain, but radiological evaluation is negative as well as ROM intact and able to bear weight. Patient will be admitted for PT/OT evaluation as her arm will be in a sling for extended weeks. Patient is open to rehab if she needs it. Orthopaedics consulted for evaluation. Ice therapy, multi-tiered pain control regime. Patient COVID test on admission is: NEGATIVE Allergies Allergy/AdvReac Type Severity Reaction Status Date / Time animal dander Allergy Intermediate SNEEZING, Verified 06/09/21 16:08 CONGESTION gluten Allergy Intermediate GLUTEN Verified 06/09/21 16:08 INTOLERANT-GI UPSET ibuprofen Allergy Mild ? UNKNOWN Verified 06/09/21 16:08 - "SO LONG AGO" Sulfa (Sulfonamide Allergy Unknown DIARRHEA Verified 06/09/21 16:08 Antibiotics) donepezil AdvReac Intermediate nightmares Verified 06/09/21 16:08 lactase [From Dairy Aid] AdvReac Intermediate Gastrointestinal Verified 06/09/21 16:08 Upset baclofen AdvReac Unknown CAN'T Verified 06/09/21 16:08 REMEMBER chocolate flavor AdvReac Unknown CAN'T Verified 06/09/21 16:08 REMEMBER milk AdvReac Unknown GI UPSET Verified 06/09/21 16:08 sulfabenzamide AdvReac Unknown CAN'T Verified 06/09/21 16:08 REMEMBER sulfamethoxazole AdvReac Unknown CAN'T Verified 06/09/21 16:08 [From Bactrim] REMEMBER trimethoprim [From Bactrim] AdvReac Unknown CAN'T Verified 06/09/21 16:08 REMEMBER Home Medications Medication Instructions Recorded Confirmed Type multivitamin (Daily Multi-Vitamin) 1 tab PO QAM 04/06/19 06/09/21 History ascorbic acid (vitamin C) 500 mg 500 mg PO DAILY cap 04/19/19 06/09/21 History capsule cetirizine 10 mg tablet 10 mg PO DAILY PRN #90 tab 06/14/19 06/09/21 Rx albuterol sulfate 90 mcg/actuation 1 puffs INH Q6H PRN #8.5 gm 08/31/19 06/09/21 Rx aerosol inhaler (Proventil HFA) cholecalciferol (vitamin D3) 1,250 50,000 units PO WEEKLY #12 cap 10/19/19 06/09/21 Rx mcg (50,000 unit) capsule oxybutynin chloride 10 mg 10 mg PO DAILY #90 tab 01/15/20 06/09/21 Rx tablet,extended release 24 hr duloxetine 30 mg capsule,delayed 30 mg PO QPM #90 cap 04/04/21 06/09/21 Rx release amoxicillin 875 mg-potassium 1 tab PO BID #14 tab 06/09/21 Rx clavulanate 125 mg tablet (Augmentin) levothyroxine 75 mcg tablet 75 mcg PO DAILY 06/09/21 06/09/21 History oxycodone 5 mg tablet 5 mg PO Q8H PRN #11 tab 06/09/21 Rx Past Med/Surg History Medical History Actinic keratosis Allergic rhinitis Asthma Bee sting Chest pain Cholelithiasis Depression with anxiety Facial swelling Gait disturbance Hypothyroidism Lumbar canal stenosis Multiple sclerosis Multiple sclerosis Osteopenia Peripheral neuropathy Vitamin D deficiency disease Surgical History No pertinent past surgical history Family History Father Lung cancer Mother Brain cancer Grandmother Stroke Denies family history of Ovarian cancer Prostate cancer Myocardial infarction Breast cancer Colorectal cancer Social History Smoking Status: Never smoker Second Hand Exposure: Yes; Hx Alcohol Use: Yes Hx Substance Use: No Preferred Language: Malay Communication Ability: Effective Visual Impairment: Partially Limited Hearing Ability: Normal Beliefs That Will Affect Care: None marital status: Current Living Situation: Spouse current occupational status: retired How many Children do You have: 3 How many Children do You have Comment: 3 boys Feels Safe at Home: Yes Childhood Exposure to Second-Hand Smoke: No during the past year weight has: remained stable Dental Care, Regularly: Yes Physical Activity Frequency: 3-4 Times per Week Seatbelt Use: always Sunscreen Use: Yes Review of Systems Review of Systems: REVIEW OF SYSTEMS: Constitutional: No fever, sweats or chills Eyes: No diplopia, no worsening or blurred vision ENT: normal hearing, no trouble swallowing Respiratory: No cough, sputum, dyspnea at rest or on exertion Cardiovascular: No chest pain, tightness or palpitations Abdomen: No pain, nausea, vomiting, diarrhea or constipation Musculoskeletal: (+) left arm/hip joint pain, calf pain, swelling Neurologic: (+) weakness, balance problems, walks with single point cane, NO numbness/tingling Psychiatric: No anxiety or depression Skin: No rash or itch Physical Exam Physical Exam: PHYSICAL EXAM: General: awake, alert, no apparent distress Head: Normocephalic, atraumatic ENT: PERRL, EOMI, no pharyngeal exudate, mucous membranes moist Neuro: AAO x 3, speech clear and appropriate, strength intact bilaterally 5/5, sensation intact and equal all extremities and dermatomes, no pronator drift, cervical spine cleared radiologically and clinically, no pain with movement or palpation. Chest: equal rise and fall of the chest, no accessory muscle use, Clear to auscultation, on room air, Cardiac: Regular rate and rhythm, telemetry reviewed, skin warm dry, cap refill <3 seconds, peripheral pulses +2 no JVD, no murmur, : Spontaneously voiding, no pain, no CVA tenderness, Extremities: Left arm in sling, pain to left shoulder and arm with movement, good distal movement of fingers and hand, Normal inspection, no peripheral edema or erythema, calfs nontender to palpation Psych: Normal mood and affect Skin: no rash or erythema Results & Data Results & Data ([facility]) Vital Signs (Past 12 Hours) Vital Signs Temp Pulse Pulse Resp BP BP Pulse Ox 06/09/21 19:00 90 15 144/92 H 96 06/09/21 18:30 91 H 12 144/86 H 97 06/09/21 18:07 92 H 20 145/92 H 100 06/09/21 18:00 91 H 14 152/85 H 98 06/09/21 17:30 70 12 124/76 95 06/09/21 17:00 70 17 133/77 99 06/09/21 16:59 73 14 138/78 98 06/09/21 15:16 83 20 96 06/09/21 14:56 36.1 C L 86 16 126/81 97 Laboratory Results Abnormal lab results 06/09/21 06/09/21 06/09/21 Range/Units 15:21 15:30 15:30 WBC 12.35 H (4.8-10.8) K/uL Neut # (Auto) 10.18 H (1.4-6.5) K/uL Lymph # (Auto) 1.19 L (1.2-3.4) K/uL [place] # (Auto) 0.83 H (0.11-0.59) K/uL BUN 32 H (7-18) mg/dl BUN/Creatinine Ratio 34.2 H (10-20) Glucose 130 H (70-99) mg/dl POC Glucose 115 H (70-99) mg/dl Urine Ketones (Negative) 06/09/21 Range/Units 15:36 WBC (4.8-10.8) K/uL Neut # (Auto) (1.4-6.5) K/uL Lymph # (Auto) (1.2-3.4) K/uL [place] # (Auto) (0.11-0.59) K/uL BUN (7-18) mg/dl BUN/Creatinine Ratio (10-20) Glucose (70-99) mg/dl POC Glucose (70-99) mg/dl Urine Ketones 1+ H (Negative) Diagnostic Findings Cervical Spine CT 06/09/21 15:06 CT SCAN OF THE CERVICAL SPINE CLINICAL HISTORY: Trauma. Fall. COMPARISON STUDY: No priors. TECHNIQUE: CT scan of the cervical spine is performed from the skull base to the upper thoracic spine. Images are reviewed in the axial, sagittal, and coronal planes. IV contrast was not administered for this examination. A dose lowering technique was utilized adhering to the principles of ALARA. CT DOSE: 1501.60 mGy.cm FINDINGS: Skeletal structures: The skeletal structures are osteopenic. There is no evidence of fracture or subluxation involving the cervical spine. Vertebral body height is maintained. There is minimal anterolisthesis at C4-C5. Alignment is otherwise preserved. Anterior osteophytes are seen throughout. The odontoid process and lateral masses are intact. The atlantoaxial articulation is preserved noting productive degenerative change. The spinous processes appear intact. There is mild to moderate multilevel cervical spondylosis. Uncovertebral and facet arthropathy contribute to neural foraminal narrowing at several levels. Intervertebral discs: There is moderate disc space narrowing at C4-C5 and C5-C6. Mild disc space narrowing is seen at the remaining cervical levels. Central canal: Posterior disc osteophyte complexes are seen at all cervical levels between C3-C4 and C5-C6. This likely contributes to multilevel acquired compromise of the central canal. Soft tissues: The prevertebral and paraspinous soft tissues are within normal limits. There is atherosclerotic calcification of the carotid bulbs. Calvarium: The visualized calvarium at the skull base appears intact. Brain parenchyma: Partially visualized brain parenchyma at the skull base is within normal limits. Sinuses and mastoids: The visualized paranasal sinuses are clear. The mastoid air cells are well pneumatized. Lung apices: Clear as visualized. IMPRESSION: 1. There is no evidence of fracture or subluxation involving the cervical spine. 2. Osteopenia and spondylotic change as above. ACT 112: Negative or not required by law. Electronically signed by: Brando Wallace M.D. 06/09/2021 4:52 PM Chest X-Ray 06/09/21 15:08 XR chest 1V portable INDICATION: [place] ^fall . TECHNIQUE: Single frontal radiograph of the chest was obtained. Comparison: Comparison is made to chest one view 11/14/2018 FINDINGS: No lines and tubes are seen. The cardiomediastinal silhouette is normal. The lungs are clear. No evidence of pleural effusion or pneumothorax. Partial visualization of the humeral head/neck fracture better evaluated on dedicated shoulder and humeral radiographs. IMPRESSION: 1. No acute chest disease. 2. For detailed findings of humeral fracture, please see dedicated humerus and shoulder radiographs performed same day. ACT 112: Negative or not required by law. Electronically signed by: Adi Swan M.D. 06/09/2021 4:[address] 06/09/21 15:08 CT SCAN OF THE BRAIN WITHOUT IV CONTRAST CLINICAL HISTORY: Fall. COMPARISON STUDY: MRI of the brain dated 04/04/2018. TECHNIQUE: Unenhanced axial CT scan of the brain is performed from the vertex to the skull base. A dose lowering technique was utilized adhering to the principles of ALARA. FINDINGS: Brain parenchyma: There are age-related involutional changes noting moderate to advanced confluent subcortical and periventricular microangiopathic change. There is no hemorrhage, mass effect, or evidence of acute territorial ischemia by CT criteria. Mcdonough-white matter differentiation is preserved. No extra-axial fluid collection is seen. Ventricles, sulci, cisterns: Prominent secondary to involutional change. Intracranial vasculature: There is atherosclerotic calcification of the cavernous carotid and vertebral arteries. Calvarium: The skeletal structures are osteopenic. No depressed calvarial fracture is identified. Sinuses and mastoids: The visualized paranasal sinuses are clear. The mastoid air cells are well pneumatized. Orbits: The bony orbits are grossly intact. There are bilateral ocular lens implants. IMPRESSION: There is no hemorrhage, mass effect, or evidence of acute territorial ischemia by CT criteria. ACT 112: Negative or not required by law. Electronically signed by: Brando Wallace M.D. 06/09/2021 4:44 PM Humerus X-Ray 06/09/21 15:08 LEFT SHOULDER 2 VIEWS; LEFT HUMERUS 2 VIEWS CLINICAL HISTORY: Fall. Left arm injury. FINDINGS: 2 views of the left shoulder with AP and lateral views of the left humerus are obtained. No prior studies are available for comparison at the time of dictation. The skeletal structures are osteopenic. There is an impacted and comminuted fracture of the left humeral head and neck. There is approximately 7 mm of offset of the humeral shaft at the head/neck junction, as well as displaced fragments of the greater tuberosity. Overlying soft tissue edema is noted. No additional fracture is identified. The glenohumeral and acromioclavicular joints appear maintained. The distal humerus appears intact. The left elbow joint is grossly normal. Imaged left lung parenchyma appears clear noting basilar atelectasis. IMPRESSION: Impacted and comminuted fracture of the left humeral head and neck as above. Electronically signed by: Brando Wallace M.D. 06/09/2021 4:03 PM Shoulder X-Ray 06/09/21 15:08 LEFT SHOULDER 2 VIEWS; LEFT HUMERUS 2 VIEWS CLINICAL HISTORY: Fall. Left arm injury. FINDINGS: 2 views of the left shoulder with AP and lateral views of the left humerus are obtained. No prior studies are available for comparison at the time of dictation. The skeletal structures are osteopenic. There is an impacted and comminuted fracture of the left humeral head and neck. There is approximately 7 mm of offset of the humeral shaft at the head/neck junction, as well as displaced fragments of the greater tuberosity. Overlying soft tissue edema is noted. No additional fracture is identified. The glenohumeral and acromioclavicular joints appear maintained. The distal humerus appears intact. The left elbow joint is grossly normal. Imaged left lung parenchyma appears clear noting basilar atelectasis. IMPRESSION: Impacted and comminuted fracture of the left humeral head and neck as above. Electronically signed by: Brando Wallace M.D. 06/09/2021 4:03 PM Abdomen/Pelvis CT 06/09/21 15:09 CT abd pelvis IV con only CLINICAL HISTORY: fall COMPARISON STUDY: November 06, 2011 TECHNIQUE: A dose lowering technique was utilized adhering to the principles of ALARA. CT DOSE: FINDINGS: Lower chest: Minimal atelectasis is seen at dependent portions of bilateral lower lobes.. Liver: The contrast-enhanced liver is normal in size, contour, and attenuation. There is no intrahepatic biliary ductal dilatation. The hepatic veins and portal veins are patent. Gallbladder: Gallbladder is fluid-filled, dilated with multiple gallstones and measuring 8.7 cm in craniocaudal dimension. No evidence of pericholecystic edema or gallbladder wall thickening. Common bile duct is nondilated. Spleen: Normal in size and attenuation. Pancreas: Unremarkable. Adrenal glands: Unremarkable. Kidneys: There is symmetric renal cortical enhancement. The kidneys are normal in size without hydronephrosis. Pelvic viscera: Urinary bladder is partially decompressed and show normal appearance. Uterus is atrophic. No fluid is seen within cul-de-sac. Bowel: Small hiatal hernia is seen. Bowel loops are nondilated. Appendix is not well seen. Diverticulosis of the cecum is seen. Cecum is folded anteriorly and superiorly and associated with mild surrounding fat stranding (7/205) and most likely representing developing diverticulitis. Cecal bascule is less likely. Diverticulosis of sigmoid colon is seen without evidence of diverticulitis. Peritoneum: There is no intraperitoneal free air or abdominal ascites. Vasculature: Abdominal aorta is normal in caliber with scattered calcifications of its wall. Adenopathy: Multiple small lymph nodes are seen within retroperitoneal region and mesentery, measuring less than 1 cm in short axis and considered nonpathological by CT size criteria. Skeletal structures: Multilevel degenerative changes of the spine. Mild anterolisthesis of L4 on L5 and L5 on S1 is seen. No definite aggressive osseous lesions are seen. No evidence of acute fracture . IMPRESSION: 1. No acute traumatic injury to the solid organs or vascular structures. Nondilated loops of bowel. 2. Moderate hiatal hernia. 3. Dilated gallbladder. Cholelithiasis without cholecystitis. Findings are stable since prior. 4. Diverticulosis of cecum with surrounding inflammatory changes likely representing developing diverticulitis. Diverticulosis of sigmoid colon is seen without evidence of diverticulitis. 5. Multilevel degenerative changes of the spine and osteopenia. 6. The rest of findings as above. ACT 112: Negative or not required by law. The above report was generated using voice recognition software. It may contain grammatical, syntax or spelling errors. Electronically signed by: Melissa Lindo DO 06/09/2021 5:08 PM Pelvis X-Ray 06/09/21 15:09 SINGLE VIEW PELVIS CLINICAL HISTORY: Fall. FINDINGS: 2 AP, portable, supine pelvic radiographs are correlated with pelvic CT dated 11/06/2011. The skeletal structures are osteopenic. There is no radiographic evidence of acute fracture involving the hips or bony pelvis. Mild to moderate degenerative joint space narrowing is seen in the hips. Degenerative sclerosis is noted in the sacroiliac joints. Spondylotic change is seen in the partially imaged lumbar spine. The overlying soft tissues are within normal limits. Numerous phleboliths are seen in the pelvis. There is atherosclerotic calcification of the femoral arteries. IMPRESSION: No acute bony abnormality is identified. Electronically signed by: Brando Wallace M.D. 06/09/2021 4:01 PM Femur X-Ray 06/09/21 16:42 LEFT FEMUR 3 VIEWS CLINICAL HISTORY: Fall. Left leg pain. FINDINGS: AP, frog-leg, and crosstable lateral views of the left femur are correlated with pelvic radiograph performed the same day 06/09/2021. The skeletal structures are osteopenic. There is no radiographic evidence of left femoral fracture. The visualized left hemipelvis appears intact. Degenerative joint space narrowing is noted in the left hip. The overlying soft tissues are normal as imaged. Excreted IV contrast is seen within the distal left ureter and the partially imaged bladder. Atherosclerotic calcification is noted in the left femoral artery. IMPRESSION: There is no radiographic evidence of left femoral fracture. Electronically signed by: Brando Wallace M.D. 06/09/2021 5:02 PM Medications Administered Sodium Chloride (Nss) 500 mls @ 125 mls/hr IV .Q4H DOTTY Stop: 07/09/21 15:14 Last Infusion: 06/09/21 19:37 Dose: 125 mls/hr Documented by: [id number] Infusion: 06/09/21 19:15 Dose: 125 mls/hr Documented by: [id number] Admin: 06/09/21 15:30 Dose: 125 mls/hr Documented by: [id number] Discontinued Medications Amoxicillin/Clavulanate Potassium (Amoxicillin/Clavulanate 875 Mg Tab) 1 tab PO NOW ONE Stop: 06/09/21 17:40 Last Admin: 06/09/21 18:35 Dose: 1 tab Documented by: [id number] Amoxicillin/Clavulanate Potassium (Amoxicillin/Clavulanate 875mg Home Pack) 1 homepack PO ONE ONE Stop: 06/09/21 17:40 Last Admin: 06/09/21 19:13 Dose: 1 homepack Documented by: [id number] Ioversol (Optiray 320 100ml) 94 ml IV ONCE ONE Stop: 06/09/21 16:33 Last Admin: 06/09/21 16:32 Dose: 94 ml Documented by: [id number] Oxycodone/Acetaminophen (Percocet 5/325mg Homepack) 1 homepack PO UD ONE Stop: 06/09/21 17:40 Last Admin: 06/09/21 19:13 Dose: 1 homepack Documented by: [id number] Oxycodone/Acetaminophen (Oxycodone/Acetaminophen 5mg/325mg Tab) 1 tab PO NOW STA Stop: 06/09/21 17:43 Last Admin: 06/09/21 18:10 Dose: 1 tab Documented by: [id number] Home Medications multivitamin (Daily Multi-Vitamin) 1 tab PO QAM 04/06/19 [History Confirmed 06/09/21] ascorbic acid (vitamin C) 500 mg capsule 500 mg PO DAILY cap 04/19/19 [History Confirmed 06/09/21] cetirizine 10 mg tablet 10 mg PO DAILY PRN #90 tab 06/14/19 [Rx Confirmed 06/09/21] albuterol sulfate 90 mcg/actuation aerosol inhaler (Proventil HFA) 1 puffs INH Q6H PRN #8.5 gm 08/31/19 [Rx Confirmed 06/09/21] cholecalciferol (vitamin D3) 1,250 mcg (50,000 unit) capsule 50,000 units PO WEEKLY #12 cap 10/19/19 [Rx Confirmed 06/09/21] oxybutynin chloride 10 mg tablet,extended release 24 hr 10 mg PO DAILY #90 tab 01/15/20 [Rx Confirmed 06/09/21] duloxetine 30 mg capsule,delayed release 30 mg PO QPM #90 cap 04/04/21 [Rx Confirmed 06/09/21] amoxicillin 875 mg-potassium clavulanate 125 mg tablet (Augmentin) 1 tab PO BID #14 tab 06/09/21 [Rx] levothyroxine 75 mcg tablet 75 mcg PO DAILY 06/09/21 [History Confirmed 06/09/21] oxycodone 5 mg tablet 5 mg PO Q8H PRN #11 tab 06/09/21 [Rx] Active Medications Sodium Chloride (Nss) 500 mls @ 125 mls/hr IV .Q4H DOTTY Stop: 07/09/21 15:14 Last Infusion: 06/09/21 19:37 Dose: Infused Documented by: Code Status & VTE Plan Code Status Normal sinus rhythm Normal ECG When compared with ECG of 04-NOV-2013 16:28, No significant change was found VTE Prophylaxis Plan VTE Prophylaxis will be ordered: Yes Supervising Physician Co-Signing Physician Notes Patient seen and examined, chart reviewed, case discussed with ESTBEAN Daniel and I agree with the assessment and plan as outlined above. In brief, patient is an 81yo female with longstanding history of MS (presently not on medical therapy - follows with Neuro q 6 months and is due to see them now), presenting with ground level fall at home resulting in left humeral head fracture. CT of the abdomen with findings suggestive for possible acute diverticulitis, although patient does not endorse symptoms of clinical findings consistent with this diag nosis. Patient with ambulatory dysfunction - she is right-hand dominant but uses her left hand to assist with balance and ambulation. She is unable to ambulate safely given her left humeral fracture. On exam she is afebrile, HD stable, NAD Resting comfortably in bed. Pain with arm movement but otherwise comfortable HEENT - NC/AT, PERRL, MMM, Neck supple Heart - +S1/S2, regular, no m/r/g Lungs - CTA Abd - +BS, soft, NT/ND Ext - N V intact Labs and images reviewed - WBC=12.35 Assessment/Plan - left humeral fracture, ambulatory dysfunction, possible early uncomplicated diverticulitis -Admit to medical. PT/OT, Ortho evaluations appreciated -Maintain left arm in sling - RICE and analgesics as above -Augmentin for now for possible diverticulitis -Remainder of plan as above PG Care Time/CCT Total # of Minutes Spent Total Time Spent with Patient: Total time spent is greater than 50% in co ordination of care (as documented) at patient's floor/unit and/or counseling patient: Coding Level of Care Code 28324 Initial Inpt Care Lvl 3 Diagnoses Fracture, humerus S42.309A Encounter type: initial encounter Fracture alignment: nondisplaced Fracture type: closed Humerus Location: proximal Laterality: unspecified laterality Diverticulitis K57.92 Multiple sclerosis G35 Peripheral neuropathy G62.9 Vitamin D deficiency disease E55.9 Hypothyroidism E03.9 Gait disturbance R26.9 Depression with anxiety F41.8 Asthma J45.909 (1) Fracture, humerus Encounter type: initial encounter Fracture alignment: nondisplaced Fracture type: closed Humerus Location: proximal Laterality: unspecified laterality
[2021-06-09] MEDS ORDERED: oxyCODONE HCL IR 5 MG TAB (IMMEDIATE RELEASE) PO PRN (22:35)
[2021-06-09] MEDS ORDERED: POLYETHYLENE (MIRALAX) 17 GM PACK PO PRN (22:35)
[2021-06-09] MEDS ORDERED: CETIRIZINE HCL 10 MG TABLET PO PRN (22:35)
[2021-06-09] MEDS ORDERED: ALBUTEROL HFA 8 GM INHALER INH PRN (22:35)
[2021-06-09] MEDS ORDERED: ONDANSETRON INJ 2 MG/ML 2 ML VIAL IV PRN (22:35)
[2021-06-09] MEDS: ACETAMINOPHEN 325 MG TAB PO PRN (23:03)
[2021-06-09] MEDS: ENOXAPARIN INJ 40 MG/0.4 ML SYR SQ SCH (23:08)
[2021-06-09] MEDS: DULoxetine HCL 30 MG CAP PO SCH (23:08)
[2021-06-10] MEDS: MoRPHine SULFATE 2 MG/ML CARP IV PRN ×2 (04:01→08:40)
[2021-06-10] MEDS ORDERED: LEVOTHYROXINE SODIUM 75 MCG TABLET PO SCH (06:30)
[2021-06-10 07:28] LABS: Basophils # (auto) 0.02 K/uL (0-0.2); Basophils % (auto) 0.2 %; Eosinophils # (auto) 0.08 K/uL (0-0.5); Eosinophils % (auto) 0.9 %; Hematocrit (blood only) 40.9 % (37-47); Hemoglobin 13.4 g/dL (12.0-16.0); Immature Granulocytes # (auto) 0.01 K/uL (0.00-0.02); Immature Granulocytes % (auto) 0.1 %; Lymphocytes # (auto) 1.21 K/uL (1.2-3.4); Lymphocytes % (auto) 13.1 %; Mean Corpuscular Hemoglobin 30.9 pg (25-34); Mean Corpuscular Hgb Conc 32.8 g/dL (32-36); Mean Corpuscular Volume 94.2 fL (80-100); Mean Platelet Volume 9.9 fL (7.4-10.4); Monocytes # (auto) 0.91 K/uL (0.11-0.59); Monocytes % (auto) 9.8 %; Neutrophils # (auto) 7.01 K/uL (1.4-6.5); Neutrophils % (auto) 75.9 %; Platelet Count 264 K/uL (130-400); RDW Coefficient of Variation 13.2 % (11.5-14.5); RDW Standard Deviation 46.1 fL (36.4-46.3); Red Blood Count 4.34 M/uL (4.2-5.4); White Blood Count 9.24 K/uL (4.8-10.8)
[2021-06-10 07:54] LABS: BUN Creatinine Ratio 31.3 (10-20); Calcium 8.7 mg/dl (8.5-10.1); Creatinine Clr Calc Pharmacy 48.9 ml/min; Est GFR (African American) 77.2 ml/min; Est GFR (Non-African American) 66.6 ml/min; Magnesium 2.7 mg/dl (1.8-2.4); Potassium 4.1 mmol/L (3.5-5.1)
--- NOTE | 2021-06-10 07:56 | Orthopedic Consultation ---
Date of Consultation June 10, 2021 Assessment & Plan (1) Gait disturbance: (2) Fracture, humerus: Treatment plan for her left proximal humerus fracture will be a simple sling no surgery. Patient reports she does not want surgery even if it were offered to her. Pain medications per her primary team. Recommend icing in addition to medication. Agree with social work evaluation for placement. She is a fall risk due to her multiple sclerosis as well as now bilateral shoulder problems. DVT prophylaxis per her primary team. Follow-up with [facility] 2 weeks after discharge with new x-rays. Plan on initiating physical therapy at that time. (3) Multiple sclerosis: History of Present Illness Reason for Consultation: Left proximal humerus fracture Attending Physician: Markie Herrera History of Present Illness 81 YOF with past medical history of: MS (DMARDS stopped in 10/2019), lumbar canal stenosis, gait disturbance, depression/anxiety, asthma. Patient comes to the emergency department today s/p fall at home. The patient was getting up to go outside and fell over onto her side onto hard wood floor. Patient does not remember putting her hand out or hitting anything else. The patient has a history of MS and usually walks with her cane, but uses her other arm to help balance herself and hold herself steady. The patient and the feel she has been a little more unsteady on her feet over the past couple of weeks, but no other falls. In the EMD the patient had multiple radiological films performed to appropriately evaluate for other fractures. She was noted to have a left humerus fracture and was splinted. Incidental finding on her CT scan of abdomen and pelvis as "evolving diverticulitis". She denies any abdominal pain/diarrhea, fevers chills, was started on Augmentin oral. The patient was prepared for original discharge but was unstable on her feet which would likely to result in fall again. The patient is in a sling. She does endorse some left hip pain, but radiological evaluation is negative as well as ROM intact and able to bear weight. Patient will be admitted for PT/OT evaluation as her arm will be in a sling for extended weeks. Patient is open to rehab if she needs it. Patient was seen and examined on the floor this morning. She does not recall how she injured her shoulder. She does not remember falling. Denies any numbness or tingling down her arm. She does have right shoulder pain is seen Dr. Harvey for this in the past. Allergies Allergy/AdvReac Type Severity Reaction Status Date / Time animal dander Allergy Intermediate SNEEZING, Verified 06/09/21 16:08 CONGESTION gluten Allergy Intermediate GLUTEN Verified 06/09/21 16:08 INTOLERANT-GI UPSET ibuprofen Allergy Mild ? UNKNOWN Verified 06/09/21 16:08 - "SO LONG AGO" Sulfa (Sulfonamide Allergy Unknown DIARRHEA Verified 06/09/21 16:08 Antibiotics) donepezil AdvReac Intermediate nightmares Verified 06/09/21 16:08 lactase [From Dairy Aid] AdvReac Intermediate Gastrointestinal Verified 06/09/21 16:08 Upset baclofen AdvReac Unknown CAN'T Verified 06/09/21 16:08 REMEMBER chocolate flavor AdvReac Unknown CAN'T Verified 06/09/21 16:08 REMEMBER milk AdvReac Unknown GI UPSET Verified 06/09/21 16:08 sulfabenzamide AdvReac Unknown CAN'T Verified 06/09/21 16:08 REMEMBER sulfamethoxazole AdvReac Unknown CAN'T Verified 06/09/21 16:08 [From Bactrim] REMEMBER trimethoprim [From Bactrim] AdvReac Unknown CAN'T Verified 06/09/21 16:08 REMEMBER peanut butter Allergy Unknown Gastrointestinal Uncoded 06/10/21 04:59 Upset Home Medications Medication Instructions Recorded Confirmed Type multivitamin (Daily Multi-Vitamin) 1 tab PO QAM 04/06/19 06/09/21 History ascorbic acid (vitamin C) 500 mg 500 mg PO DAILY cap 04/19/19 06/09/21 History capsule cetirizine 10 mg tablet 10 mg PO DAILY PRN #90 tab 06/14/19 06/09/21 Rx albuterol sulfate 90 mcg/actuation 1 puffs INH Q6H PRN #8.5 gm 08/31/19 06/09/21 Rx aerosol inhaler (Proventil HFA) cholecalciferol (vitamin D3) 1,250 50,000 units PO WEEKLY #12 cap 10/19/19 06/09/21 Rx mcg (50,000 unit) capsule oxybutynin chloride 10 mg 10 mg PO DAILY #90 tab 01/15/20 06/09/21 Rx tablet,extended release 24 hr duloxetine 30 mg capsule,delayed 30 mg PO QPM #90 cap 04/04/21 06/09/21 Rx release amoxicillin 875 mg-potassium 1 tab PO BID #14 tab 06/09/21 Rx clavulanate 125 mg tablet (Augmentin) levothyroxine 75 mcg tablet 75 mcg PO DAILY 06/09/21 06/09/21 History oxycodone 5 mg tablet 5 mg PO Q8H PRN #11 tab 06/09/21 Rx Patient History Medical History Actinic keratosis Allergic rhinitis Asthma Bee sting Chest pain Cholelithiasis Depression with anxiety Facial swelling Gait disturbance Hypothyroidism Lumbar canal stenosis Multiple sclerosis Multiple sclerosis Osteopenia Peripheral neuropathy Vitamin D deficiency disease Surgical History No pertinent past surgical history Family History Father Lung cancer Mother Brain cancer Grandmother Stroke Denies family history of Ovarian cancer Prostate cancer Myocardial infarction Breast cancer Colorectal cancer Social History Smoking Status: Never smoker Second Hand Exposure: Yes; Hx Alcohol Use: Yes Alcohol type: wine Hx Substance Use: No Preferred Language: Mauritian Communication Ability: Effective Visual Impairment: Partially Limited Hearing Ability: Normal Seconds Grader Required: No Beliefs That Will Affect Care: None marital status: Current Living Situation: Spouse current occupational status: retired How many Children do You have: 3 How many Children do You have Comment: 3 boys Feels Safe at Home: Yes Childhood Exposure to Second-Hand Smoke: No during the past year weight has: remained stable Dental Care, Regularly: Yes Physical Activity Frequency: 3-4 Times per Week Seatbelt Use: always Sunscreen Use: Yes Assistive Devices: Cane and Glasses Physical Exam Physical Exam: On exam she is resting supine in bed, easily arousable and communicative. She is a little bit confused as to why she is in the hospital. Yet endorses pain in the left shoulder. She does not have a sling on. She has some swelling and tenderness over the proximal humerus. Intact EPL FPL and interossei firing. She is able to flex and extend her elbow as well as supinate and pronate her forearm. Able to bring her arm onto her abdomen into the position she would be if she was in a sling. She is not currently in a sling. Sensation intact to light touch median ulnar radial and axillary nerve distributions. No tenderness over the collarbone. No skin lesions. Skin is warm and well-perfused. Results & Data ([facility]) Vital Signs (Past 12 Hours) Vital Signs Temp Pulse Pulse Pulse Pulse Resp BP 06/10/21 07:11 36.5 C 75 16 06/09/21 22:20 36.5 C 83 18 06/09/21 22:00 86 125/74 06/09/21 21:00 84 132/78 06/09/21 20:54 86 142/80 H 06/09/21 20:00 88 20 BP Pulse Ox 06/10/21 07:11 109/71 94 06/09/21 22:20 158/70 H 95 06/09/21 22:00 06/09/21 21:00 94 06/09/21 20:54 06/09/21 20:00 130/86 96 Diagnostic Findings Cervical Spine CT 06/09/21 15:06 CT SCAN OF THE CERVICAL SPINE CLINICAL HISTORY: Trauma. Fall. COMPARISON STUDY: No priors. TECHNIQUE: CT scan of the cervical spine is performed from the skull base to the upper thoracic spine. Images are reviewed in the axial, sagittal, and coronal planes. IV contrast was not administered for this examination. A dose lowering technique was utilized adhering to the principles of ALARA. CT DOSE: 1501.60 mGy.cm FINDINGS: Skeletal structures: The skeletal structures are osteopenic. There is no evidence of fracture or subluxation involving the cervical spine. Vertebral body height is maintained. There is minimal anterolisthesis at C4-C5. Alignment is otherwise preserved. Anterior osteophytes are seen throughout. The odontoid process and lateral masses are intact. The atlantoaxial articulation is preserved noting productive degenerative change. The spinous processes appear intact. There is mild to moderate multilevel cervical spondylosis. Uncovertebral and facet arthropathy contribute to neural foraminal narrowing at several levels. Intervertebral discs: There is moderate disc space narrowing at C4-C5 and C5-C6. Mild disc space narrowing is seen at the remaining cervical levels. Central canal: Posterior disc osteophyte complexes are seen at all cervical levels between C3-C4 and C5-C6. This likely contributes to multilevel acquired compromise of the central canal. Soft tissues: The prevertebral and paraspinous soft tissues are within normal limits. There is atherosclerotic calcification of the carotid bulbs. Calvarium: The visualized calvarium at the skull base appears intact. Brain parenchyma: Partially visualized brain parenchyma at the skull base is within normal limits. Sinuses and mastoids: The visualized paranasal sinuses are clear. The mastoid air cells are well pneumatized. Lung apices: Clear as visualized. IMPRESSION: 1. There is no evidence of fracture or subluxation involving the cervical spine. 2. Osteopenia and spondylotic change as above. ACT 112: Negative or not required by law. Electronically signed by: Brando Wallace M.D. 06/09/2021 4:52 PM Chest X-Ray 06/09/21 15:08 XR chest 1V portable INDICATION: [place] ^fall . TECHNIQUE: Single frontal radiograph of the chest was obtained. Comparison: Comparison is made to chest one view 11/14/2018 FINDINGS: No lines and tubes are seen. The cardiomediastinal silhouette is normal. The lungs are clear. No evidence of pleural effusion or pneumothorax. Partial visualization of the humeral head/neck fracture better evaluated on dedicated shoulder and humeral radiographs. IMPRESSION: 1. No acute chest disease. 2. For detailed findings of humeral fracture, please see dedicated humerus and shoulder radiographs performed same day. ACT 112: Negative or not required by law. Electronically signed by: Adi Swan M.D. 06/09/2021 4:[address] 06/09/21 15:08 CT SCAN OF THE BRAIN WITHOUT IV CONTRAST CLINICAL HISTORY: Fall. COMPARISON STUDY: MRI of the brain dated 04/04/2018. TECHNIQUE: Unenhanced axial CT scan of the brain is performed from the vertex to the skull base. A dose lowering technique was utilized adhering to the principles of ALARA. FINDINGS: Brain parenchyma: There are age-related involutional changes noting moderate to advanced confluent subcortical and periventricular microangiopathic change. There is no hemorrhage, mass effect, or evidence of acute territorial ischemia by CT criteria. Mcdonough-white matter differentiation is preserved. No extra-axial fluid collection is seen. Ventricles, sulci, cisterns: Prominent secondary to involutional change. Intracranial vasculature: There is atherosclerotic calcification of the cavernous carotid and vertebral arteries. Calvarium: The skeletal structures are osteopenic. No depressed calvarial fracture is identified. Sinuses and mastoids: The visualized paranasal sinuses are clear. The mastoid air cells are well pneumatized. Orbits: The bony orbits are grossly intact. There are bilateral ocular lens implants. IMPRESSION: There is no hemorrhage, mass effect, or evidence of acute territorial ischemia by CT criteria. ACT 112: Negative or not required by law. Electronically signed by: Brando Wallace M.D. 06/09/2021 4:44 PM Humerus X-Ray 06/09/21 15:08 LEFT SHOULDER 2 VIEWS; LEFT HUMERUS 2 VIEWS CLINICAL HISTORY: Fall. Left arm injury. FINDINGS: 2 views of the left shoulder with AP and lateral views of the left humerus are obtained. No prior studies are available for comparison at the time of dictation. The skeletal structures are osteopenic. There is an impacted and comminuted fracture of the left humeral head and neck. There is approximately 7 mm of offset of the humeral shaft at the head/neck junction, as well as displaced fragments of the greater tuberosity. Overlying soft tissue edema is noted. No additional fracture is identified. The glenohumeral and acromioclavicular joints appear maintained. The distal humerus appears intact. The left elbow joint is grossly normal. Imaged left lung parenchyma appears clear noting basilar atelectasis. IMPRESSION: Impacted and comminuted fracture of the left humeral head and neck as above. Electronically signed by: Brando Wallace M.D. 06/09/2021 4:03 PM Shoulder X-Ray 06/09/21 15:08 LEFT SHOULDER 2 VIEWS; LEFT HUMERUS 2 VIEWS CLINICAL HISTORY: Fall. Left arm injury. FINDINGS: 2 views of the left shoulder with AP and lateral views of the left humerus are obtained. No prior studies are available for comparison at the time of dictation. The skeletal structures are osteopenic. There is an impacted and comminuted fracture of the left humeral head and neck. There is approximately 7 mm of offset of the humeral shaft at the head/neck junction, as well as displaced fragments of the greater tuberosity. Overlying soft tissue edema is noted. No additional fracture is identified. The glenohumeral and acromioclavicular joints appear maintained. The distal humerus appears intact. The left elbow joint is grossly normal. Imaged left lung parenchyma appears clear noting basilar atelectasis. IMPRESSION: Impacted and comminuted fracture of the left humeral head and neck as above. Electronically signed by: Brando Wallace M.D. 06/09/2021 4:03 PM Abdomen/Pelvis CT 06/09/21 15:09 CT abd pelvis IV con only CLINICAL HISTORY: fall COMPARISON STUDY: November 06, 2011 TECHNIQUE: A dose lowering technique was utilized adhering to the principles of ALARA. CT DOSE: FINDINGS: Lower chest: Minimal atelectasis is seen at dependent portions of bilateral lower lobes.. Liver: The contrast-enhanced liver is normal in size, contour, and attenuation. There is no intrahepatic biliary ductal dilatation. The hepatic veins and portal veins are patent. Gallbladder: Gallbladder is fluid-filled, dilated with multiple gallstones and measuring 8.7 cm in craniocaudal dimension. No evidence of pericholecystic edema or gallbladder wall thickening. Common bile duct is nondilated. Spleen: Normal in size and attenuation. Pancreas: Unremarkable. Adrenal glands: Unremarkable. Kidneys: There is symmetric renal cortical enhancement. The kidneys are normal in size without hydronephrosis. Pelvic viscera: Urinary bladder is partially decompressed and show normal appearance. Uterus is atrophic. No fluid is seen within cul-de-sac. Bowel: Small hiatal hernia is seen. Bowel loops are nondilated. Appendix is not well seen. Diverticulosis of the cecum is seen. Cecum is folded anteriorly and superiorly and associated with mild surrounding fat stranding (7/205) and most likely representing developing diverticulitis. Cecal bascule is less likely. Diverticulosis of sigmoid colon is seen without evidence of diverticulitis. Peritoneum: There is no intraperitoneal free air or abdominal ascites. Vasculature: Abdominal aorta is normal in caliber with scattered calcifications of its wall. Adenopathy: Multiple small lymph nodes are seen within retroperitoneal region and mesentery, measuring less than 1 cm in short axis and considered nonpathological by CT size criteria. Skeletal structures: Multilevel degenerative changes of the spine. Mild anterolisthesis of L4 on L5 and L5 on S1 is seen. No definite aggressive osseous lesions are seen. No evidence of acute fracture . IMPRESSION: 1. No acute traumatic injury to the solid organs or vascular structures. Nondilated loops of bowel. 2. Moderate hiatal hernia. 3. Dilated gallbladder. Cholelithiasis without cholecystitis. Findings are stable since prior. 4. Diverticulosis of cecum with surrounding inflammatory changes likely representing developing diverticulitis. Diverticulosis of sigmoid colon is seen without evidence of diverticulitis. 5. Multilevel degenerative changes of the spine and osteopenia. 6. The rest of findings as above. ACT 112: Negative or not required by law. The above report was generated using voice recognition software. It may contain grammatical, syntax or spelling errors. Electronically signed by: Melissa Lindo DO 06/09/2021 5:08 PM Pelvis X-Ray 06/09/21 15:09 SINGLE VIEW PELVIS CLINICAL HISTORY: Fall. FINDINGS: 2 AP, portable, supine pelvic radiographs are correlated with pelvic CT dated 11/06/2011. The skeletal structures are osteopenic. There is no radiographic evidence of acute fracture involving the hips or bony pelvis. Mild to moderate degenerative joint space narrowing is seen in the hips. Degenerative sclerosis is noted in the sacroiliac joints. Spondylotic change is seen in the partially imaged lumbar spine. The overlying soft tissues are within normal limits. Numerous phleboliths are seen in the pelvis. There is atherosclerotic calcification of the femoral arteries. IMPRESSION: No acute bony abnormality is identified. Electronically signed by: Brando Wallace M.D. 06/09/2021 4:01 PM Femur X-Ray 06/09/21 16:42 LEFT FEMUR 3 VIEWS CLINICAL HISTORY: Fall. Left leg pain. FINDINGS: AP, frog-leg, and crosstable lateral views of the left femur are correlated with pelvic radiograph performed the same day 06/09/2021. The skeletal structures are osteopenic. There is no radiographic evidence of left femoral fracture. The visualized left hemipelvis appears intact. Degenerative joint space narrowing is noted in the left hip. The overlying soft tissues are normal as imaged. Excreted IV contrast is seen within the distal left ureter and the partially imaged bladder. Atherosclerotic calcification is noted in the left femoral artery. IMPRESSION: There is no radiographic evidence of left femoral fracture. Electronically signed by: Brando Wallace M.D. 06/09/2021 5:02 PM (1) Fracture, humerus Encounter type: initial encounter Fracture alignment: nondisplaced Fracture type: closed Humerus Location: proximal Laterality: unspecified laterality
--- NOTE | 2021-06-10 08:32 | Hospitalist Progress Note ---
Date of Service June 10, 2021 Assessment & Plan (1) Fracture, humerus: Plan: Status fall at home in patient with unsteady gait and weakness with a history of MS Age-rel osteopor w current path fracture, left humerus X-ray shows impacted and comminuted fracture of the left humeral head and neck Orthopedics consultedappreciate assistance. Patient does endorse that she would like to avoid surgery if possible. Will need repeat imaging in 2 weeks and follow-up with Dr. Valle off Continue with fall risk while inpatient Pain control with Tylenol as needed, oxycodone increased to 10 mg as needed for moderate pain as she has been requiring morphine still for pain control at times PT/OT consults pending but anticipate need for at least short-term rehab given that she uses her left hand for balance at home but is right-handed Continue with ice, elevation, sling --> Discussed with Ortho and okay to remove sling for showering and dressing only Patient does have urinary frequency and is on bed alarm to prevent further falls. Case management alerted of possible need for rehab and will continue to follow Continue to monitor Vit D level low -- at 24 but already on 50,000IU weekly. Consider prolia injections outpt if patient agreeable Also w memory fog, per outpt Neuro to have TSH/B12 checked -- TSH elevated and increase synthroid 88mcg daily starting tomorrow and discussed will need repeat TFT in 6 weeks for further adjustment -- B12 pending given weakness as well. Urine without infection (2) Diverticulitis: Plan: Diverticulosis of cecum with surrounding inflammatory changes likely representing developing diverticulitis Denied any abdominal symptoms but was started on Augmentin and will continue this twice daily to complete course Of note scan abdomen pelvis on mission did show a fluid-filled gallbladder, dilated with multiple gallstones measuring 8.7 cm in craniocaudal dimension without evidence of pericholestatic edema or gallbladder wall filling and has a normal common bile duct without dilation. Does not appear that liver function testing done on admission however patient did deny any abdominal symptoms. Will check LFTs on a.m. labs or sooner if develops symptoms (3) Multiple sclerosis: Plan: Follows with Neurology- DMARDS stopped in 11/09 PT/OT evaluation for ambulatory need or support in regards to left arm immobile for multiple weeks in sling--> May need rehab as above at least for short-term but has been is able to assist with activities of daily living Consider neurology consult following PT/OT evaluation if clinical symptoms appear to be resurfacing TSH elevated -- increased supp Vit D low-- increase supp (4) Peripheral neuropathy: Plan: As above B12 pending as well (5) Vitamin D deficiency disease: Plan: With osteopenia Already on 50,000 cholecalciferol-- > will need to follow-up with primary care about possible Prolia injections given review of primary care note with DEXA scan most recently with osteopenia and was to have a repeat DEXA scan this year (6) Hypothyroidism: Plan: On levothyroxine 75mcg daily prior to admission but was to have her thyroid function checked at most recent neurology office visit follow-up but this was never done and patient did endorse memory fog weakness at times and other symptoms of hypothyroidism Check TSH which was elevated at 15.3 which would be higher than anticipated even in setting of stress and discussed increasing her Synthroid to 88 mcg daily and repeat thyroid function as an outpatient with primary care (7) Gait disturbance: Plan: As above - PT/OT evaluations pending as above (8) Depression with anxiety: Plan: Continue duloxetine (9) Asthma: Plan: Mild with cough- controlled on albuterol inhaler 08/11/2019: FVC: 2.20/87 % (2% change), FEV1: 1.59/86 % (4% change), FEV1/FVC: 72 %/97 % (2% change), 25-75 %: 1.04/71 % (12% change), RV: 1.12/48 %, T.68/75 %, RV/T%/64%, DLCO: 70%, dL/VA: 87 % - no acute needs lung clear on room air Plan: PT and OT therapy official eval's pending but anticipate a short-term acute rehab Possible DC tomorrow if therapy eval's received and bed available based on insurance authorization however if patient remains inpatient and able to make improvements could consider home with home therapy but will need to see how she does On Lovenox subcu for DVT prophylaxis while inpatient Admission and Anticipated Discharge Date Admission Date: June 09, 2021 Supervising Physician Co-Signing Physician Notes Attending Attestation - Chart reviewed in detail, care plan d/w SHITAL Pearson. I agree w/ the saleh components of her documentation. Cont supportive care for left humerus fracture (sling, pain control, etc). Diverticulitis, cecal - cont antibiotics. Hypothyroidism - synthroid dose adjusted, repeat TSH in 6 weeks as outpatient. MS - stable. Markie Herrera MD Subjective Patient eval this morning. Pain controlled current but did neeed IV. Discussed increasing her oral to 10mg prn to see if any improvement in controll. Ice helping. Worked with OT but not PT yet. Currently with recs for short term rehab but this may change -- she does use L arm to help w balance but is R handed and uses a cane. Discussed labs as previously wanted by Neurology -- TSH elevated. She takes med appropriately but did endorse increased mental fog/fatigue/dry skin/brittle hair and constipation at times. No current diarrhea or abd pain but tx with Augmentin as discussed on admission for cecum diverticulitis. No fever, chills, chest pain, shortness of breath, abd pain, nausea or vomiting. Noted low vitamin D initially just post increasing her supplementation however review occasions notes that she is on 50,000 units weekly already and will need to further discuss about injections therapy. Review of Systems Review of Systems: All systems reviewed & are unremarkable except as noted in HPI & below Physical Exam Physical Exam: PHYSICAL EXAM: General: awake, alert, no apparent distress, well-nourished well-developed, just finished working with occupational therapy Head: Normocephalic, atraumatic ENT: PERRL, EOMI, mmm Neuro: AAO x 3, speech clear and appropriate, strength intact and equal bilaterally, sensation intact and equal all extremities and dermatomes, no pronator drift, cervical spine cleared radiologically and clinically, no pain with movement or palpation. Chest: equal rise and fall of the chest, no accessory muscle use, Clear to auscultation, on room air, Cardiac: Regular rate and rhythm, skin warm dry, cap refill <3 seconds, peripheral pulses +2 no JVD, no murmur, : Spontaneously voiding, no pain, no CVA tenderness, Extremities: Left arm in sling, pain to left shoulder and arm with movement, good distal movement of fingers and hand, able to make complete fist. sensation intact. no peripheral edema or erythema, calfs nontender to palpation Psych: Normal mood and affect Skin: no rash or erythema Results & Data Results & Data ([facility]) Vital Signs (Past 12 Hours) Vital Signs Temp Pulse Pulse Pulse Resp BP BP 06/10/21 07:11 36.5 C 75 16 109/71 06/09/21 22:20 36.5 C 83 18 158/70 H 06/09/21 22:00 86 125/74 06/09/21 21:00 84 132/78 06/09/21 20:54 86 142/80 H Pulse Ox 06/10/21 07:11 94 06/09/21 22:20 95 06/09/21 22:00 06/09/21 21:00 94 06/09/21 20:54 Laboratory Results 06/10/21 06/10/21 06/10/21 Range/Units 08:53 08:53 08:53 WBC (4.8-10.8) K/uL RBC (4.2-5.4) M/uL Hgb (12.0-16.0) g/dL Hct (37-47) % MCV (80-100) fL MCH (25-34) pg MCHC (32-36) g/dL RDW Std Deviation (36.4-46.3) fL RDW Coeff of Kelsie (11.5-14.5) % Plt Count (130-400) K/uL MPV (7.4-10.4) fL Immature Gran % (Auto) % Neut % (Auto) % Lymph % (Auto) % [place] % (Auto) % Eos % (Auto) % Baso % (Auto) % Neut # (Auto) (1.4-6.5) K/uL Lymph # (Auto) (1.2-3.4) K/uL [place] # (Auto) (0.11-0.59) K/uL Eos # (Auto) (0-0.5) K/uL Baso # (Auto) (0-0.2) K/uL Immature Gran # (Auto) (0.00-0.02) K/uL PT (9.0-12.0) Seconds INR (0.9-1.1) APTT (21.0-31.0) Seconds PTT Ratio Sodium (136-145) mmol/L Potassium (3.5-5.1) mmol/L Chloride (98-107) mmol/L Carbon Dioxide (21-32) mmol/L Anion Gap (3-11) BUN (7-18) mg/dl Creatinine (0.6-1.2) mg/dl Est Cr Clr Drug Dosing ml/min Est GFR ( Amer) ml/min Est GFR (Non-Af Amer) ml/min BUN/Creatinine Ratio (10-20) Glucose (70-99) mg/dl POC Glucose (70-99) mg/dl Calcium (8.5-10.1) mg/dl Magnesium (1.8-2.4) mg/dl Total Creatine Kinase (26-192) U/L Troponin I (0-0.045) ng/ml Vitamin B12 Pending 25-OH Vitamin D Total 24.1 L (30-100) ng/ml TSH 15.300 H (0.300-4.500) uIu/ml Urine Color Urine Appearance (Clear) Urine pH (4.5-7.5) Ur Specific Rockwell (1.000-1.030) Urine Protein (Negative) Urine Glucose (UA) (Negative) Urine Ketones (Negative) Urine Blood (Negative) Urine Nitrite (Negative) Urine Bilirubin (Negative) Urine Urobilinogen (Negative) Ur Leukocyte Esterase (Negative) COVID-19 Eval Order SARS-CoV-2 (PCR) (Negative) 06/10/21 06/10/21 06/09/21 Range/Units 06:57 06:57 20:27 WBC 9.24 (4.8-10.8) K/uL RBC 4.34 (4.2-5.4) M/uL Hgb 13.4 (12.0-16.0) g/dL Hct 40.9 (37-47) % MCV 94.2 (80-100) fL MCH 30.9 (25-34) pg MCHC 32.8 (32-36) g/dL RDW Std Deviation 46.1 (36.4-46.3) fL RDW Coeff of Kelsie 13.2 (11.5-14.5) % Plt Count 264 (130-400) K/uL MPV 9.9 (7.4-10.4) fL Immature Gran % (Auto) 0.1 % Neut % (Auto) 75.9 % Lymph % (Auto) 13.1 % Lar[place]ie % (Auto) 9.8 % Eos % (Auto) 0.9 % Baso % (Auto) 0.2 % Neut # (Auto) 7.01 H (1.4-6.5) K/uL Lymph # (Auto) 1.21 (1.2-3.4) K/uL [place] # (Auto) 0.91 H (0.11-0.59) K/uL Eos # (Auto) 0.08 (0-0.5) K/uL Baso # (Auto) 0.02 (0-0.2) K/uL Immature Gran # (Auto) 0.01 (0.00-0.02) K/uL PT (9.0-12.0) Seconds INR (0.9-1.1) APTT (21.0-31.0) Seconds PTT Ratio Sodium 139 (136-145) mmol/L Potassium 4.1 (3.5-5.1) mmol/L Chloride 109 H (98-107) mmol/L Carbon Dioxide 23 (21-32) mmol/L Anion Gap 7.0 (3-11) BUN 26 H (7-18) mg/dl Creatinine 0.82 (0.6-1.2) mg/dl Est Cr Clr Drug Dosing 48.9 ml/min Est GFR ( Amer) 77.2 ml/min Est GFR (Non-Af Amer) 66.6 ml/min BUN/Creatinine Ratio 31.3 H (10-20) Glucose 101 H (70-99) mg/dl POC Glucose (70-99) mg/dl Calcium 8.7 (8.5-10.1) mg/dl Magnesium 2.7 H (1.8-2.4) mg/dl Total Creatine Kinase (26-192) U/L Troponin I (0-0.045) ng/ml Vitamin B12 25-OH Vitamin D Total (30-100) ng/ml TSH (0.300-4.500) uIu/ml Urine Color Urine Appearance (Clear) Urine pH (4.5-7.5) Ur Specific Rock[place] (1.000-1.030) Urine Protein (Negative) Urine Glucose (UA) (Negative) Urine Ketones (Negative) Urine Blood (Negative) Urine Nitrite (Negative) Urine Bilirubin (Negative) Urine Urobilinogen (Negative) Ur Leukocyte Esterase (Negative) COVID-19 Eval Order SARS-CoV-2 (PCR) NEGATIVE (Negative) 06/09/21 06/09/21 06/09/21 Range/Units 20:27 15:36 15:30 WBC (4.8-10.8) K/uL RBC (4.2-5.4) M/uL Hgb (12.0-16.0) g/dL Hct (37-47) % MCV (80-100) fL MCH (25-34) pg MCHC (32-36) g/dL RDW Std Deviation (36.4-46.3) fL RDW Coeff of Kelsie (11.5-14.5) % Plt Count (130-400) K/uL MPV (7.4-10.4) fL Immature Gran % (Auto) % Neut % (Auto) % Lymph % (Auto) % [place] % (Auto) % Eos % (Auto) % Baso % (Auto) % Neut # (Auto) (1.4-6.5) K/uL Lymph # (Auto) (1.2-3.4) K/uL [place] # (Auto) (0.11-0.59) K/uL Eos # (Auto) (0-0.5) K/uL Baso # (Auto) (0-0.2) K/uL Immature Gran # (Auto) (0.00-0.02) K/uL PT (9.0-12.0) Seconds INR (0.9-1.1) APTT (21.0-31.0) Seconds PTT Ratio Sodium 139 (136-145) mmol/L Potassium 3.7 (3.5-5.1) mmol/L Chloride 107 (98-107) mmol/L Carbon Dioxide 21 (21-32) mmol/L Anion Gap 11.0 (3-11) BUN 32 H (7-18) mg/dl Creatinine 0.93 (0.6-1.2) mg/dl Est Cr Clr Drug Dosing 43.1 ml/min Est GFR ( Amer) 66.3 ml/min Est GFR (Non-Af Amer) 57.2 ml/min BUN/Creatinine Ratio 34.2 H (10-20) Glucose 130 H (70-99) mg/dl POC Glucose (70-99) mg/dl Calcium 9.1 (8.5-10.1) mg/dl Magnesium (1.8-2.4) mg/dl Total Creatine Kinase 49 (26-192) U/L Troponin I < 0.015 (0-0.045) ng/ml Vitamin B12 25-OH Vitamin D Total (30-100) ng/ml TSH (0.300-4.500) uIu/ml Urine Color Yellow Urine Appearance Clear (Clear) Urine pH 5.5 (4.5-7.5) Ur Specific Rockwell 1.027 (1.000-1.030) Urine Protein Negative (Negative) Urine Glucose (UA) Negative (Negative) Urine Ketones 1+ H (Negative) Urine Blood Negative (Negative) Urine Nitrite Negative (Negative) Urine Bilirubin Negative (Negative) Urine Urobilinogen Negative (Negative) Ur Leukocyte Esterase Negative (Negative) COVID-19 Eval Order Covid19 at [facility] SARS-CoV-2 (PCR) (Negative) 06/09/21 06/09/21 06/09/21 Range/Units 15:30 15:30 15:21 WBC 12.35 H (4.8-10.8) K/uL RBC 4.70 (4.2-5.4) M/uL Hgb 14.7 (12.0-16.0) g/dL Hct 43.6 (37-47) % MCV 92.8 (80-100) fL MCH 31.3 (25-34) pg MCHC 33.7 (32-36) g/dL RDW Std Deviation 44.8 (36.4-46.3) fL RDW Coeff of Kelsie 13.1 (11.5-14.5) % Plt Count 282 (130-400) K/uL MPV 9.9 (7.4-10.4) fL Immature Gran % (Auto) 0.1 % Neut % (Auto) 82.4 % Lymph % (Auto) 9.6 % [place] % (Auto) 6.7 % Eos % (Auto) 1.0 % Baso % (Auto) 0.2 % Neut # (Auto) 10.18 H (1.4-6.5) K/uL Lymph # (Auto) 1.19 L (1.2-3.4) K/uL [place] # (Auto) 0.83 H (0.11-0.59) K/uL Eos # (Auto) 0.12 (0-0.5) K/uL Baso # (Auto) 0.02 (0-0.2) K/uL Immature Gran # (Auto) 0.01 (0.00-0.02) K/uL PT 10.0 (9.0-12.0) Seconds INR 1.0 (0.9-1.1) APTT 24.2 (21.0-31.0) Seconds PTT Ratio 0.9 Sodium (136-145) mmol/L Potassium (3.5-5.1) mmol/L Chloride (98-107) mmol/L Carbon Dioxide (21-32) mmol/L Anion Gap (3-11) BUN (7-18) mg/dl Creatinine (0.6-1.2) mg/dl Est Cr Clr Drug Dosing ml/min Est GFR ( Amer) ml/min Est GFR (Non-Af Amer) ml/min BUN/Creatinine Ratio (10-20) Glucose (70-99) mg/dl POC Glucose 115 H (70-99) mg/dl Calcium (8.5-10.1) mg/dl Magnesium (1.8-2.4) mg/dl Total Creatine Kinase (26-192) U/L Troponin I (0-0.045) ng/ml Vitamin B12 25-OH Vitamin D Total (30-100) ng/ml TSH (0.300-4.500) uIu/ml Urine Color Urine Appearance (Clear) Urine pH (4.5-7.5) Ur Specific Rock[place] (1.000-1.030) Urine Protein (Negative) Urine Glucose (UA) (Negative) Urine Ketones (Negative) Urine Blood (Negative) Urine Nitrite (Negative) Urine Bilirubin (Negative) Urine Urobilinogen (Negative) Ur Leukocyte Esterase (Negative) COVID-19 Eval Order SARS-CoV-2 (PCR) (Negative) Diagnostic Findings Cervical Spine CT 06/09/21 15:06 CT SCAN OF THE CERVICAL SPINE CLINICAL HISTORY: Trauma. Fall. COMPARISON STUDY: No priors. TECHNIQUE: CT scan of the cervical spine is performed from the skull base to the upper thoracic spine. Images are reviewed in the axial, sagittal, and coronal planes. IV contrast was not administered for this examination. A dose lowering technique was utilized adhering to the principles of ALARA. CT DOSE: 1501.60 mGy.cm FINDINGS: Skeletal structures: The skeletal structures are osteopenic. There is no evidence of fracture or subluxation involving the cervical spine. Vertebral body height is maintained. There is minimal anterolisthesis at C4-C5. Alignment is otherwise preserved. Anterior osteophytes are seen throughout. The odontoid process and lateral masses are intact. The atlantoaxial articulation is preserved noting productive degenerative change. The spinous processes appear intact. There is mild to moderate multilevel cervical spondylosis. Uncovertebral and facet arthropathy contribute to neural foraminal narrowing at several levels. Intervertebral discs: There is moderate disc space narrowing at C4-C5 and C5-C6. Mild disc space narrowing is seen at the remaining cervical levels. Central canal: Posterior disc osteophyte complexes are seen at all cervical levels between C3-C4 and C5-C6. This likely contributes to multilevel acquired compromise of the central canal. Soft tissues: The prevertebral and paraspinous soft tissues are within normal limits. There is atherosclerotic calcification of the carotid bulbs. Calvarium: The visualized calvarium at the skull base appears intact. Brain parenchyma: Partially visualized brain parenchyma at the skull base is within normal limits. Sinuses and mastoids: The visualized paranasal sinuses are clear. The mastoid air cells are well pneumatized. Lung apices: Clear as visualized. IMPRESSION: 1. There is no evidence of fracture or subluxation involving the cervical spine. 2. Osteopenia and spondylotic change as above. ACT 112: Negative or not required by law. Electronically signed by: Brando Wallace M.D. 06/09/2021 4:52 PM Chest X-Ray 06/09/21 15:08 XR chest 1V portable INDICATION: [place] ^fall . TECHNIQUE: Single frontal radiograph of the chest was obtained. Comparison: Comparison is made to chest one view 11/14/2018 FINDINGS: No lines and tubes are seen. The cardiomediastinal silhouette is normal. The lungs are clear. No evidence of pleural effusion or pneumothorax. Partial visualization of the humeral head/neck fracture better evaluated on dedicated shoulder and humeral radiographs. IMPRESSION: 1. No acute chest disease. 2. For detailed findings of humeral fracture, please see dedicated humerus and shoulder radiographs performed same day. ACT 112: Negative or not required by law. Electronically signed by: Adi Swan M.D. 06/09/2021 4:[address] 06/09/21 15:08 CT SCAN OF THE BRAIN WITHOUT IV CONTRAST CLINICAL HISTORY: Fall. COMPARISON STUDY: MRI of the brain dated 04/04/2018. TECHNIQUE: Unenhanced axial CT scan of the brain is performed from the vertex to the skull base. A dose lowering technique was utilized adhering to the principles of ALARA. FINDINGS: Brain parenchyma: There are age-related involutional changes noting moderate to advanced confluent subcortical and periventricular microangiopathic change. There is no hemorrhage, mass effect, or evidence of acute territorial ischemia by CT criteria. Mcdonough-white matter differentiation is preserved. No extra-axial fluid collection is seen. Ventricles, sulci, cisterns: Prominent secondary to involutional change. Intracranial vasculature: There is atherosclerotic calcification of the cave rnous carotid and vertebral arteries. Calvarium: The skeletal structures are osteopenic. No depressed calvarial fracture is identified. Sinuses and mastoids: The visualized paranasal sinuses are clear. The mastoid air cells are well pneumatized. Orbits: The bony orbits are grossly intact. There are bilateral ocular lens implants. IMPRESSION: There is no hemorrhage, mass effect, or evidence of acute territorial ischemia by CT criteria. ACT 112: Negative or not required by law. Electronically signed by: Brando Wallace M.D. 06/09/2021 4:44 PM Humerus X-Ray 06/09/21 15:08 LEFT SHOULDER 2 VIEWS; LEFT HUMERUS 2 VIEWS CLINICAL HISTORY: Fall. Left arm injury. FINDINGS: 2 views of the left shoulder with AP and lateral views of the left humerus are obtained. No prior studies are available for comparison at the time of dictation. The skeletal structures are osteopenic. There is an impacted and comminuted fracture of the left humeral head and neck. There is approximately 7 mm of offset of the humeral shaft at the head/neck junction, as well as displaced fragments of the greater tuberosity. Overlying soft tissue edema is noted. No additional fracture is identified. The glenohumeral and acromioclavicular joints appear maintained. The distal humerus appears intact. The left elbow joint is grossly normal. Imaged left lung parenchyma appears clear noting basilar atelectasis. IMPRESSION: Impacted and comminuted fracture of the left humeral head and neck as above. Electronically signed by: Brando Wallace M.D. 06/09/2021 4:03 PM Shoulder X-Ray 06/09/21 15:08 LEFT SHOULDER 2 VIEWS; LEFT HUMERUS 2 VIEWS CLINICAL HISTORY: Fall. Left arm injury. FINDINGS: 2 views of the left shoulder with AP and lateral views of the left humerus are obtained. No prior studies are available for comparison at the time of dictation. The skeletal structures are osteopenic. There is an impacted and comminuted fracture of the left humeral head and neck. There is approximately 7 mm of offset of the humeral shaft at the head/neck junction, as well as displaced fragments of the greater tuberosity. Overlying soft tissue edema is noted. No additional fracture is identified. The glenohumeral and acromioclavicular joints appear maintained. The distal humerus appears intact. The left elbow joint is grossly normal. Imaged left lung parenchyma appears clear noting basilar atelectasis. IMPRESSION: Impacted and comminuted fracture of the left humeral head and neck as above. Electronically signed by: Brando Wallace M.D. 06/09/2021 4:03 PM Abdomen/Pelvis CT 06/09/21 15:09 CT abd pelvis IV con only CLINICAL HISTORY: fall COMPARISON STUDY: November 06, 2011 TECHNIQUE: A dose lowering technique was utilized adhering to the principles of ALARA. CT DOSE: FINDINGS: Lower chest: Minimal atelectasis is seen at dependent portions of bilateral lower lobes.. Liver: The contrast-enhanced liver is normal in size, contour, and attenuation. There is no intrahepatic biliary ductal dilatation. The hepatic veins and portal veins are patent. Gallbladder: Gallbladder is fluid-filled, dilated with multiple gallstones and measuring 8.7 cm in craniocaudal dimension. No evidence of pericholecystic edema or gallbladder wall thickening. Common bile duct is nondilated. Spleen: Normal in size and attenuation. Pancreas: Unremarkable. Adrenal glands: Unremarkable. Kidneys: There is symmetric renal cortical enhancement. The kidneys are normal in size without hydronephrosis. Pelvic viscera: Urinary bladder is partially decompressed and show normal appearance. Uterus is atrophic. No fluid is seen within cul-de-sac. Bowel: Small hiatal hernia is seen. Bowel loops are nondilated. Appendix is not well seen. Diverticulosis of the cecum is seen. Cecum is folded anteriorly and superiorly and associated with mild surrounding fat stranding (7/205) and most likely representing developing diverticulitis. Cecal bascule is less likely. Diverticulosis of sigmoid colon is seen without evidence of diverticulitis. Peritoneum: There is no intraperitoneal free air or abdominal ascites. Vasculature: Abdominal aorta is normal in caliber with scattered calcifications of its wall. Adenopathy: Multiple small lymph nodes are seen within retroperitoneal region and mesentery, measuring less than 1 cm in short axis and considered nonpathological by CT size criteria. Skeletal structures: Multilevel degenerative changes of the spine. Mild anterolisthesis of L4 on L5 and L5 on S1 is seen. No definite aggressive osseous lesions are seen. No evidence of acute fracture . IMPRESSION: 1. No acute traumatic injury to the solid organs or vascular structures. Non dilated loops of bowel. 2. Moderate hiatal hernia. 3. Dilated gallbladder. Cholelithiasis without cholecystitis. Findings are stable since prior. 4. Diverticulosis of cecum with surrounding inflammatory changes likely representing developing diverticulitis. Diverticulosis of sigmoid colon is seen without evidence of diverticulitis. 5. Multilevel degenerative changes of the spine and osteopenia. 6. The rest of findings as above. ACT 112: Negative or not required by law. The above report was generated using voice recognition software. It may contain grammatical, syntax or spelling errors. Electronically signed by: Melissa Lindo DO 06/09/2021 5:08 PM Pelvis X-Ray 06/09/21 15:09 SINGLE VIEW PELVIS CLINICAL HISTORY: Fall. FINDINGS: 2 AP, portable, supine pelvic radiographs are correlated with pelvic CT dated 11/06/2011. The skeletal structures are osteopenic. There is no radiographic evidence of acute fracture involving the hips or bony pelvis. Mild to moderate degenerative joint space narrowing is seen in the hips. Degenerative sclerosis is noted in the sacroiliac joints. Spondylotic change is seen in the partially imaged lumbar spine. The overlying soft tissues are within normal limits. Numerous phleboliths are seen in the pelvis. There is atherosclerotic calcification of the femoral arteries. IMPRESSION: No acute bony abnormality is identified. Electronically signed by: Brando Wallace M.D. 06/09/2021 4:01 PM Femur X-Ray 06/09/21 16:42 LEFT FEMUR 3 VIEWS CLINICAL HISTORY: Fall. Left leg pain. FINDINGS: AP, frog-leg, and crosstable lateral views of the left femur are correlated with pelvic radiograph performed the same day 06/09/2021. The skeletal structures are osteopenic. There is no radiographic evidence of left femoral fracture. The visualized left hemipelvis appears intact. Degenerative joint space narrowing is noted in the left hip. The overlying soft tissues are normal as imaged. Excreted IV contrast is seen within the distal left ureter and the partially imaged bladder. Atherosclerotic calcification is noted in the left femoral artery. IMPRESSION: There is no radiographic evidence of left femoral fracture. Electronically signed by: Brando Wallace M.D. 06/09/2021 5:02 PM PG Care Time/CCT Total # of Minutes Spent Total Time Spent with Patient: Total time spent is greater than 50% in coordination of care (as documented) at patient's floor/unit and/or counseling patient: Coding Level of Care Code 44839 Subseq Hosp Care Lvl 3 Diagnoses Fracture, humerus S42.309A Encounter type: initial encounter Fracture alignment: nondisplaced Fracture type: closed Humerus Location: proximal Laterality: unspecified laterality Diverticulitis K57.92 Multiple sclerosis G35 Peripheral neuropathy G62.9 Vitamin D deficiency disease E55.9 Hypothyroidism E03.9 Gait disturbance R26.9 Depression with anxiety F41.8 Asthma J45.909 (1) Fracture, humerus Encounter type: initial encounter Fracture alignment: nondisplaced Fracture type: closed Humerus Location: proximal Laterality: unspecified laterality
[2021-06-10] MEDS: AMOXICILLIN/CLAVULANATE 875 MG TAB PO SCH ×2 (08:38→16:49)
[2021-06-10] MEDS: OXYBUTYNIN CHLORIDE XL 5 MG TABCR PO SCH (08:50)
[2021-06-10] MEDS: oxyCODONE HCL IR 5 MG TAB (IMMEDIATE RELEASE) PO PRN ×2 (12:50→19:17)
--- NOTE | 2021-06-10 14:42 | Orthopedic Consultation ---
Date of Consultation June 10, 2021 Assessment & Plan (1) Gait disturbance: (2) Fracture, humerus: Treatment plan for her left proximal humerus fracture will be a simple sling no surgery. Patient reports she does not want surgery even if it were offered to her. Pain medications per her primary team. Recommend icing in addition to medication. Agree with social work evaluation for placement. She is a fall risk due to her multiple sclerosis as well as now bilateral shoulder problems. DVT prophylaxis per her primary team. Follow-up with [facility] 2 weeks after discharge with new x-rays. Plan on initiating physical therapy at that time. (3) Multiple sclerosis: History of Present Illness Reason for Consultation: Left proximal humerus fracture Requesting Physician: Dr. Serafin Beaver Attending Physician: Markie Herrera History of Present Illness This 81-year-old female was seen today in consultation for an impacted left proximal humerus fracture that she sustained yesterday afternoon. Patient states that she was attempting to go down a few steps when her knee buckled causing her to fall and land directly on her left shoulder. Patient states she has no pain anywhere else. She denies headache, visual disturbances, blurred vision, chest pain, shortness of breath, fever, chills, sweats, lethargy or numbness or tingling in her left upper extremity. Allergies Allergy/AdvReac Type Severity Reaction Status Date / Time animal dander Allergy Intermediate SNEEZING, Verified 06/09/21 16:08 CONGESTION gluten Allergy Intermediate GLUTEN Verified 06/09/21 16:08 INTOLERANT-GI UPSET ibuprofen Allergy Mild ? UNKNOWN Verified 06/09/21 16:08 - "SO LONG AGO" Sulfa (Sulfonamide Allergy Unknown DIARRHEA Verified 06/09/21 16:08 Antibiotics) donepezil AdvReac Intermediate nightmares Verified 06/09/21 16:08 lactase [From Dairy Aid] AdvReac Intermediate Gastrointestinal Verified 06/09/21 16:08 Upset baclofen AdvReac Unknown CAN'T Verified 06/09/21 16:08 REMEMBER chocolate flavor AdvReac Unknown CAN'T Verified 06/09/21 16:08 REMEMBER lactose AdvReac Unknown Gastrointestinal Verified 06/10/21 08:12 Upset peanut AdvReac Unknown Gastrointestinal Verified 06/10/21 08:12 Upset sulfabenzamide AdvReac Unknown CAN'T Verified 06/09/21 16:08 REMEMBER sulfamethoxazole AdvReac Unknown CAN'T Verified 06/09/21 16:08 [From Bactrim] REMEMBER trimethoprim [From Bactrim] AdvReac Unknown CAN'T Verified 06/09/21 16:08 REMEMBER Home Medications Medication Instructions Recorded Confirmed Type multivitamin (Daily Multi-Vitamin) 1 tab PO QAM 04/06/19 06/09/21 History ascorbic acid (vitamin C) 500 mg 500 mg PO DAILY cap 04/19/19 06/09/21 History capsule cetirizine 10 mg tablet 10 mg PO DAILY PRN #90 tab 06/14/19 06/09/21 Rx albuterol sulfate 90 mcg/actuation 1 puffs INH Q6H PRN #8.5 gm 08/31/19 06/09/21 Rx aerosol inhaler (Proventil HFA) cholecalciferol (vitamin D3) 1,250 50,000 units PO WEEKLY #12 cap 10/19/19 06/09/21 Rx mcg (50,000 unit) capsule oxybutynin chloride 10 mg 10 mg PO DAILY #90 tab 01/15/20 06/09/21 Rx tablet,extended release 24 hr duloxetine 30 mg capsule,delayed 30 mg PO QPM #90 cap 04/04/21 06/09/21 Rx release amoxicillin 875 mg-potassium 1 tab PO BID #14 tab 06/09/21 Rx clavulanate 125 mg tablet (Augmentin) levothyroxine 75 mcg tablet 75 mcg PO DAILY 06/09/21 06/09/21 History oxycodone 5 mg tablet 5 mg PO Q8H PRN #11 tab 06/09/21 Rx Patient History Medical History Actinic keratosis Allergic rhinitis Asthma Bee sting Chest pain Cholelithiasis Depression with anxiety Facial swelling Gait disturbance Hypothyroidism Lumbar canal stenosis Multiple sclerosis Multiple sclerosis Osteopenia Peripheral neuropathy Vitamin D deficiency disease Surgical History No pertinent past surgical history Family History Father Lung cancer Mother Brain cancer Grandmother Stroke Denies family history of Ovarian cancer Prostate cancer Myocardial infarction Breast cancer Colorectal cancer Social History Smoking Status: Never smoker Second Hand Exposure: Yes; Hx Alcohol Use: Yes Alcohol type: wine Hx Substance Use: No Preferred Language: Amharic Communication Ability: Effective Visual Impairment: Partially Limited Hearing Ability: Normal 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 Beliefs That Will Affect Care: None marital status: Current Living Situation: Spouse current occupational status: retired How many Children do You have: 3 How many Children do You have Comment: 3 boys Feels Safe at Home: Yes Childhood Exposure to Second-Hand Smoke: No during the past year weight has: remained stable Dental Care, Regularly: Yes Physical Activity Frequency: 3-4 Times per Week Seatbelt Use: always Sunscreen Use: Yes Assistive Devices: Cane Review of Systems Review of Systems: All systems reviewed & are unremarkable except as noted in Subjective Physical Exam Physical Exam: Left upper extremity: Patient has tenderness to palpation over the proximal humerus with notable edema and ecchymosis. She is wearing a sling at present. I did remove the sling and patient is able to reach terminal flexion-extension her elbow. Has full range of motion of her wrist. Appropriate dexterity of her fingers. She is able to depict light sensation to touch over the pads of all digits. She is able to make complete fist. Her peripheral pulses are 2+. Her capillary fill is less than 2 seconds. Results & Data ([facility]) Vital Signs (Past 12 Hours) Vital Signs Temp Pulse Resp BP Pulse Ox 06/10/21 07:11 36.5 C 75 16 109/71 94 Diagnostic Findings Laboratory Results WBC 9.24 K/uL (4.8-10.8) 06/10/21 06:57 RBC 4.34 M/uL (4.2-5.4) 06/10/21 06:57 Hgb 13.4 g/dL (12.0-16.0) 06/10/21 06:57 Hct 40.9 % (37-47) 06/10/21 06:57 MCV 94.2 fL (80-100) 06/10/21 06:57 MCH 30.9 pg (25-34) 06/10/21 06:57 MCHC 32.8 g/dL (32-36) 06/10/21 06:57 RDW Std Deviation 46.1 fL (36.4-46.3) 06/10/21 06:57 RDW Coeff of Kelsie 13.2 % (11.5-14.5) 06/10/21 06:57 Plt Count 264 K/uL (130-400) 06/10/21 06:57 MPV 9.9 fL (7.4-10.4) 06/10/21 06:57 Immature Gran % (Auto) 0.1 % 06/10/21 06:57 Neut % (Auto) 75.9 % 06/10/21 06:57 Lymph % (Auto) 13.1 % 06/10/21 06:57 [place] % (Auto) 9.8 % 06/10/21 06:57 Eos % (Auto) 0.9 % 06/10/21 06:57 Baso % (Auto) 0.2 % 06/10/21 06:57 Neut # (Auto) 7.01 K/uL (1.4-6.5) H 06/10/21 06:57 Lymph # (Auto) 1.21 K/uL (1.2-3.4) 06/10/21 06:57 [place] # (Auto) 0.91 K/uL (0.11-0.59) H 06/10/21 06:57 Eos # (Auto) 0.08 K/uL (0-0.5) 06/10/21 06:57 Baso # (Auto) 0.02 K/uL (0-0.2) 06/10/21 06:57 Immature Gran # (Auto) 0.01 K/uL (0.00-0.02) 06/10/21 06:57 PT 10.0 Seconds (9.0-12.0) 06/09/21 15:30 INR 1.0 (0.9-1.1) 06/09/21 15:30 APTT 24.2 Seconds (21.0-31.0) 06/09/21 15:30 PTT Ratio 0.9 06/09/21 15:30 Sodium 139 mmol/L (136-145) 06/10/21 06:57 Potassium 4.1 mmol/L (3.5-5.1) 06/10/21 06:57 Chloride 109 mmol/L (98-107) H 06/10/21 06:57 Carbon Dioxide 23 mmol/L (21-32) 06/10/21 06:57 Anion Gap 7.0 (3-11) 06/10/21 06:57 BUN 26 mg/dl (7-18) H 06/10/21 06:57 Creatinine 0.82 mg/dl (0.6-1.2) 06/10/21 06:57 Est Cr Clr Drug Dosing 48.9 ml/min 06/10/21 06:57 Est GFR ( Amer) 77.2 ml/min 06/10/21 06:57 Est GFR (Non-Af Amer) 66.6 ml/min 06/10/21 06:57 BUN/Creatinine Ratio 31.3 (10-20) H 06/10/21 06:57 Glucose 101 mg/dl (70-99) H 06/10/21 06:57 POC Glucose 115 mg/dl (70-99) H 06/09/21 15:21 Calcium 8.7 mg/dl (8.5-10.1) 06/10/21 06:57 Magnesium 2.7 mg/dl (1.8-2.4) H 06/10/21 06:57 Total Creatine Kinase 49 U/L (26-192) 06/09/21 15:30 Troponin I < 0.015 ng/ml (0-0.045) 06/09/21 15:30 Vitamin B12 347 pg/ml (193-986) 06/10/21 08:53 25-OH Vitamin D Total 24.1 ng/ml (30-100) L 06/10/21 08:53 TSH 15.300 uIu/ml (0.300-4.500) H 06/10/21 08:53 Urine Color Yellow 06/09/21 15:36 Urine Appearance Clear (Clear) 06/09/21 15:36 Urine pH 5.5 (4.5-7.5) 06/09/21 15:36 Ur Specific [place] 1.027 (1.000-1.030) 06/09/21 15:36 Urine Protein Negative (Negative) 06/09/21 15:36 Urine Glucose (UA) Negative (Negative) 06/09/21 15:36 Urine Ketones 1+ (Negative) H 06/09/21 15:36 Urine Blood Negative (Negative) 06/09/21 15:36 Urine Nitrite Negative (Negative) 06/09/21 15:36 Urine Bilirubin Negative (Negative) 06/09/21 15:36 Urine Urobilinogen Negative (Negative) 06/09/21 15:36 Ur Leukocyte Esterase Negative (Negative) 06/09/21 15:36 COVID-19 Eval Order Covid19 at [facility] 06/09/21 20:27 SARS-CoV-2 (PCR) NEGATIVE (Negative) 06/09/21 20:[address] 06/09/21 15:06 CT SCAN OF THE CERVICAL SPINE CLINICAL HISTORY: Trauma. Fall. COMPARISON STUDY: No priors. TECHNIQUE: CT scan of the cervical spine is performed from the skull base to the upper thoracic spine. Images are reviewed in the axial, sagittal, and coronal planes. IV contrast was not administered for this examination. A dose lowering technique was utilized adhering to the principles of ALARA. CT DOSE: 1501.60 mGy.cm FINDINGS: Skeletal structures: The skeletal structures are osteopenic. There is no evidence of fracture or subluxation involving the cervical spine. Vertebral body height is maintained. There is minimal anterolisthesis at C4-C5. Alignment is otherwise preserved. Anterior osteophytes are seen throughout. The odontoid process and lateral masses are intact. The atlantoaxial articulation is preserved noting productive degenerative change. The spinous processes appear intact. There is mild to moderate multilevel cervical spondylosis. Uncovertebral and facet arthropathy contribute to neural foraminal narrowing at several levels. Intervertebral discs: There is moderate disc space narrowing at C4-C5 and C5-C6. Mild disc space narrowing is seen at the remaining cervical levels. Central canal: Posterior disc osteophyte complexes are seen at all cervical levels between C3-C4 and C5-C6. This likely contributes to multilevel acquired compromise of the central canal. Soft tissues: The prevertebral and paraspinous soft tissues are within normal limits. There is atherosclerotic calcification of the carotid bulbs. Calvarium: The visualized calvarium at the skull base appears intact. Brain parenchyma: Partially visualized brain parenchyma at the skull base is within normal limits. Sinuses and mastoids: The visualized paranasal sinuses are clear. The mastoid air cells are well pneumatized. Lung apices: Clear as visualized. IMPRESSION: 1. There is no evidence of fracture or subluxation involving the cervical spine. 2. Osteopenia and spondylotic change as above. ACT 112: Negative or not required by law. Electronically signed by: Brando Wallace M.D. 06/09/2021 4:52 PM Chest X-Ray 06/09/21 15:08 XR chest 1V portable INDICATION: [place] ^fall . TECHNIQUE: Single frontal radiograph of the chest was obtained. Comparison: Comparison is made to chest one view 11/14/2018 FINDINGS: No lines and tubes are seen. The cardiomediastinal silhouette is normal. The lungs are clear. No evidence of pleural effusion or pneumothorax. Partial visualization of the humeral head/neck fracture better evaluated on dedicated shoulder and humeral radiographs. IMPRESSION: 1. No acute chest disease. 2. For detailed findings of humeral fracture, please see dedicated humerus and shoulder radiographs performed same day. ACT 112: Negative or not required by law. Electronically signed by: Adi Swan M.D. 06/09/2021 4:[address] 06/09/21 15:08 CT SCAN OF THE BRAIN WITHOUT IV CONTRAST CLINICAL HISTORY: Fall. COMPARISON STUDY: MRI of the brain dated 04/04/2018. TECHNIQUE: Unenhanced axial CT scan of the brain is performed from the vertex to the skull base. A dose lowering technique was utilized adhering to the principles of ALARA. FINDINGS: Brain parenchyma: There are age-related involutional changes noting moderate to advanced confluent subcortical and periventricular microangiopathic change. There is no hemorrhage, mass effect, or evidence of acute territorial ischemia by CT criteria. Mcdonough-white matter differentiation is preserved. No extra-axial fluid collection is seen. Ventricles, sulci, cisterns: Prominent secondary to involutional change. Intracranial vasculature: There is atherosclerotic calcification of the cavernous carotid and vertebral arteries. Calvarium: The skeletal structures are osteopenic. No depressed calvarial fracture is identified. Sinuses and mastoids: The visualized paranasal sinuses are clear. The mastoid air cells are well pneumatized. Orbits: The bony orbits are grossly intact. There are bilateral ocular lens implants. IMPRESSION: There is no hemorrhage, mass effect, or evidence of acute territorial ischemia by CT criteria. ACT 112: Negative or not required by law. Electronically signed by: Brando Wallace M.D. 06/09/2021 4:44 PM Humerus X-Ray 06/09/21 15:08 LEFT SHOULDER 2 VIEWS; LEFT HUMERUS 2 VIEWS CLINICAL HISTORY: Fall. Left arm injury. FINDINGS: 2 views of the left shoulder with AP and lateral views of the left humerus are obtained. No prior studies are available for comparison at the time of dictation. The skeletal structures are osteopenic. There is an impacted and comminuted fracture of the left humeral head and neck. There is approximately 7 mm of offset of the humeral shaft at the head/neck junction, as well as displaced fragments of the greater tuberosity. Overlying soft tissue edema is noted. No additional fracture is identified. The glenohumeral and ac romioclavicular joints appear maintained. The distal humerus appears intact. The left elbow joint is grossly normal. Imaged left lung parenchyma appears clear noting basilar atelectasis. IMPRESSION: Impacted and comminuted fracture of the left humeral head and neck as above. Electronically signed by: Brando Wallace M.D. 06/09/2021 4:03 PM Shoulder X-Ray 06/09/21 15:08 LEFT SHOULDER 2 VIEWS; LEFT HUMERUS 2 VIEWS CLINICAL HISTORY: Fall. Left arm injury. FINDINGS: 2 views of the left shoulder with AP and lateral views of the left humerus are obtained. No prior studies are available for comparison at the time of dictation. The skeletal structures are osteopenic. There is an impacted and comminuted fracture of the left humeral head and neck. There is approximately 7 mm of offset of the humeral shaft at the head/neck junction, as well as displaced fragments of the greater tuberosity. Overlying soft tissue edema is noted. No additional fracture is identified. The glenohumeral and acromioclavicular joints appear maintained. The distal humerus appears intact. The left elbow joint is grossly normal. Imaged left lung parenchyma appears clear noting basilar atelectasis. IMPRESSION: Impacted and comminuted fracture of the left humeral head and neck as above. Electronically signed by: Brando Wallace M.D. 06/09/2021 4:03 PM Abdomen/Pelvis CT 06/09/21 15:09 CT abd pelvis IV con only CLINICAL HISTORY: fall COMPARISON STUDY: November 06, 2011 TECHNIQUE: A dose lowering technique was utilized adhering to the principles of ALARA. CT DOSE: FINDINGS: Lower chest: Minimal atelectasis is seen at dependent portions of bilateral lower lobes.. Liver: The contrast-enhanced liver is normal in size, contour, and attenuation. There is no intrahepatic biliary ductal dilatation. The hepatic veins and portal veins are patent. Gallbladder: Gallbladder is fluid-filled, dilated with multiple gallstones and measuring 8.7 cm in craniocaudal dimension. No evidence of pericholecystic edema or gallbladder wall thickening. Common bile duct is nondilated. Spleen: Normal in size and attenuation. Pancreas: Unremarkable. Adrenal glands: Unremarkable. Kidneys: There is symmetric renal cortical enhancement. The kidneys are normal in size without hydronephrosis. Pelvic viscera: Urinary bladder is partially decompressed and show normal appearance. Uterus is atrophic. No fluid is seen within cul-de-sac. Bowel: Small hiatal hernia is seen. Bowel loops are nondilated. Appendix is not well seen. Diverticulosis of the cecum is seen. Cecum is folded anteriorly and superiorly and associated with mild surrounding fat stranding (7/205) and most likely representing developing diverticulitis. Cecal bascule is less likely. Diverticulosis of sigmoid colon is seen without evidence of diverticulitis. Peritoneum: There is no intraperitoneal free air or abdominal ascites. Vasculature: Abdominal aorta is normal in caliber with scattered calcifications of its wall. Adenopathy: Multiple small lymph nodes are seen within retroperitoneal region and mesentery, measuring less than 1 cm in short axis and considered nonpathological by CT size criteria. Skeletal structures: Multilevel degenerative changes of the spine. Mild anterolisthesis of L4 on L5 and L5 on S1 is seen. No definite aggressive osseous lesions are seen. No evidence of acute fracture . IMPRESSION: 1. No acute traumatic injury to the solid organs or vascular structures. Nondilated loops of bowel. 2. Moderate hiatal hernia. 3. Dilated gallbladder. Cholelithiasis without cholecystitis. Findings are stable since prior. 4. Diverticulosis of cecum with surrounding inflammatory changes likely representing developing diverticulitis. Diverticulosis of sigmoid colon is seen without evidence of diverticulitis. 5. Multilevel degenerative changes of the spine and osteopenia. 6. The rest of findings as above. ACT 112: Negative or not required by law. The above report was generated using voice recognition software. It may contain grammatical, syntax or spelling errors. Electronically signed by: Melissa Lindo DO 06/09/2021 5:08 PM Pelvis X-Ray 06/09/21 15:09 SINGLE VIEW PELVIS CLINICAL HISTORY: Fall. FINDINGS: 2 AP, portable, supine pelvic radiographs are correlated with pelvic CT dated 11/06/2011. The skeletal structures are osteopenic. There is no radiographic evidence of acute fracture involving the hips or bony pelvis. Mild to moderate degenerative joint space narrowing is seen in the hips. Degenerative sclerosis is noted in the sacroiliac joints. Spondylotic change is seen in the partially imaged lumbar spine. The overlying soft tissues are within normal limits. Numerous phleboliths are seen in the pelvis. There is atherosclerotic calcification of the femoral arteries. IMPRESSION: No acute bony abnormality is identified. Electronically signed by: Brando Wallace M.D. 06/09/2021 4:01 PM Femur X-Ray 06/09/21 16:42 LEFT FEMUR 3 VIEWS CLINICAL HISTORY: Fall. Left leg pain. FINDINGS: AP, frog-leg, and crosstable lateral views of the left femur are correlated with pelvic radiograph performed the same day 06/09/2021. The skeletal structures are osteopenic. There is no radiographic evidence of left femoral fracture. The visualized left hemipelvis appears intact. Degenerative joint space narrowing is noted in the left hip. The overlying soft tissues are normal as imaged. Excreted IV contrast is seen within the distal left ureter and the partially imaged bladder. Atherosclerotic calcification is noted in the left femoral artery. IMPRESSION: There is no radiographic evidence of left femoral fracture. Electronically signed by: Brando Wallace M.D. 06/09/2021 5:02 PM (1) Fracture, humerus Encounter type: initial encounter Fracture alignment: nondisplaced Fracture type: closed Humerus Location: proximal Laterality: unspecified laterality
--- NOTE | 2021-06-10 16:45 | Electrocardiogram Report ---
Test Reason : Blood Pressure : / mmHG Vent. Rate : 086 BPM Atrial Rate : 086 BPM P-R Int : 196 ms QRS Dur : 078 ms QT Int : 388 ms P-R-T Axes : 066 025 066 degrees QTc Int : 464 ms Poor data quality, interpretation may be adversely affected Normal sinus rhythm Normal ECG When compared with ECG of 04-NOV-2013 16:28, No significant change was found Confirmed by Pravin Guerra ([id number]) on 06/10/2021 4:45:14 PM Referred By: ED Confirmed By:Pravin Guerra
[2021-06-10] MEDS: DOCUSATE SODIUM/SENNA 50/8.6MG TAB PO SCH (20:42)
[2021-06-10] MEDS: DULoxetine HCL 30 MG CAP PO SCH (20:42)
[2021-06-10] MEDS: ENOXAPARIN INJ 40 MG/0.4 ML SYR SQ SCH (20:42)
[2021-06-10] MEDS: MoRPHine SULFATE 4 MG/ML 1 ML CARP\\VIAL IV PRN (20:53)
[2021-06-11] MEDS: LEVOTHYROXINE SODIUM 88 MCG TABLET PO SCH (06:09)
[2021-06-11] MEDS: oxyCODONE HCL IR 5 MG TAB (IMMEDIATE RELEASE) PO PRN ×2 (06:09→19:53)
[2021-06-11] MEDS: MoRPHine SULFATE 4 MG/ML 1 ML CARP\\VIAL IV PRN (06:29)
[2021-06-11 07:21] LABS: Basophils # (auto) 0.03 K/uL (0-0.2); Basophils % (auto) 0.4 %; Eosinophils # (auto) 0.29 K/uL (0-0.5); Hematocrit (blood only) 37.5 % (37-47); Hemoglobin 11.9 g/dL (12.0-16.0); Immature Granulocytes # (auto) 0.01 K/uL (0.00-0.02); Immature Granulocytes % (auto) 0.1 %; Lymphocytes # (auto) 1.15 K/uL (1.2-3.4); Lymphocytes % (auto) 15.8 %; Mean Corpuscular Hemoglobin 30.6 pg (25-34); Mean Corpuscular Hgb Conc 31.7 g/dL (32-36); Mean Corpuscular Volume 96.4 fL (80-100); Mean Platelet Volume 9.7 fL (7.4-10.4); Monocytes # (auto) 0.88 K/uL (0.11-0.59); Monocytes % (auto) 12.1 %; Neutrophils # (auto) 4.94 K/uL (1.4-6.5); Neutrophils % (auto) 67.6 %; Platelet Count 254 K/uL (130-400); RDW Coefficient of Variation 13.4 % (11.5-14.5); RDW Standard Deviation 46.9 fL (36.4-46.3); Red Blood Count 3.89 M/uL (4.2-5.4)
[2021-06-11 07:58] LABS: Albumin Level 3.2 gm/dl (3.4-5.0); BUN Creatinine Ratio 25.4 (10-20); Bilirubin Direct 0.2 mg/dl (0-0.2); Calcium 8.4 mg/dl (8.5-10.1); Creatinine Clr Calc Pharmacy 40.1 ml/min; Est GFR (African American) 60.8 ml/min; Est GFR (Non-African American) 52.4 ml/min; Magnesium 2.3 mg/dl (1.8-2.4); Potassium 4.1 mmol/L (3.5-5.1)
[2021-06-11 08:01] LABS: Bilirubin,Total 0.6 mg/dl (0.2-1); Total Protein 6.1 gm/dl (6.4-8.2)
[2021-06-11] MEDS ORDERED: HYDROmorphone INJ 0.5 MG/0.5 ML SYR IV STA (08:34)
[2021-06-11] MEDS: OXYBUTYNIN CHLORIDE XL 5 MG TABCR PO SCH (08:40)
[2021-06-11] MEDS: AMOXICILLIN/CLAVULANATE 875 MG TAB PO SCH ×2 (08:40→16:07)
--- NOTE | 2021-06-11 08:40 | Hospitalist Progress Note ---
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 Patient does endorse that she would like to avoid surgery if possible. Will need repeat imaging in 2 weeks and follow-up with Dr. Valle off Continue with fall risk while inpatient Pain control with Tylenol as needed, oxycodone increased to 10 mg as needed for moderate pain as she has been requiring morphine still for pain control at times --> Given 0.5 mg Dilaudid this morning for pain continue as needed and discontinue morphine. We will also add lidocaine patch and continue oxycodone 5 mg as needed Continue with ice, elevation sling. Per Ortho okay to remove sling for showering and dressing only --> Bowel regimen with MiraLAX which has been increased to twice daily as well as senna at night. Continue to monitor given hypoactive bowel sounds on exam and encourage increased ambulation PT and OT consults placed in anticipating short-term rehab given that she uses left hand for balance at home and is right-handed and does not think her will be able to properly assist. Case management to follow Patient does have urinary frequency and is on bed alarm to prevent further falls. Vit D level low -- at 24 but already on 50,000IU weekly. Consider prolia injections outpt if patient agreeable--> she is agreeable and will follow up with her primary care. Will send message at discharge regarding need for follow-up on this Also w memory fog, per outpt Neuro to have TSH/B12 checked -- TSH elevated and increase synthroid 88mcg daily starting tomorrow and discussed will need repeat TFT in 6 weeks for further adjustment -- B12 pending given weakness as well--> Low normal at [address] on B12 supplementations at this time urine without infection (2) Diverticulitis: Plan: Diverticulosis of cecum with surrounding inflammatory changes likely representing developing diverticulitis Denied any abdominal symptoms but was started on Augmentin and will continue this twice daily to complete course Of note scan abdomen pelvis on mission did show a fluid-filled gallbladder, dilated with multiple gallstones measuring 8.7 cm in craniocaudal dimension without evidence of pericholestatic edema or gallbladder wall filling and has a normal common bile duct without dilation. Does not appear that liver function testing done on admission however patient did deny any abdominal symptoms. White blood count with normal limits and LFTs without abnormalities Did have some lower abdominal discomfort however has not had a bowel movement and working on bowel regimen as above. No fevers or need for further imaging at this time unless becomes febrile or elevation of white count or worsening of her symptoms (3) Multiple sclerosis: Plan: Follows with Neurology- DMARDS stopped in 11/09 PT/OT evaluation for ambulatory need or support in regards to left arm immobile for multiple weeks in sling--> May need rehab as above at least for short-term but has been is able to assist with activities of daily living Consider neurology consult following PT/OT evaluation if clinical symptoms appear to be resurfacing TSH elevated -- increased supp Vit D low--will need follow-up PCP but possible Prolia injection (4) Peripheral neuropathy: Plan: As above B12 pending as well-> low normal and placing on daily supplementation IM while inpatient and will place n.p.o. discharge (5) Vitamin D deficiency disease: Plan: With osteopenia Already on 50,000 cholecalciferol-- > will need to follow-up with primary care about possible Prolia injections given review of primary care note with DEXA scan most recently with osteopenia and was to have a repeat DEXA scan this year Patient agreeable possible injections and will need follow-up with PCP (6) Hypothyroidism: Plan: On levothyroxine 75mcg daily prior to admission but was to have her thyroid f unction checked at most recent neurology office visit follow-up but this was never done and patient did endorse memory fog weakness at times and other symptoms of hypothyroidism Check TSH which was elevated at 15.3 which would be higher than anticipated even in setting of stress and discussed increasing her Synthroid to 88 mcg daily and repeat thyroid function as an outpatient with primary care --> Recommend repeat thyroid 4 to 6 weeks outpatient dischargemonths as needed (7) Gait disturbance: Plan: As above - PT/OT evaluations pending as above (8) Depression with anxiety: Plan: Continue duloxetine (9) Asthma: Plan: Mild with cough- controlled on albuterol inhaler 08/11/2019: FVC: 2.20/87 % (2% change), FEV1: 1.59/86 % (4% change), FEV1/FVC: 72 %/97 % (2% change), 25-75 %: 1.04/71 % (12% change), RV: 1.12/48 %, T.68/75 %, RV/T%/64%, DLCO: 70%, dL/VA: 87 % - no acute needs lung clear on room air (10) Anemia: Plan: Hemoglobin 11.9 from previous 13 but did give him IV fluids admission Suspect some bleeding from fracture however no obvious hematoma appreciated on exam B12 also low which was checked given her neuropathy and replacement as ordered We will watch her iron on morning to ensure no further replacement needed but also monitor CBC Plan: Likely to need acute rehab at discharge however attempting to obtain better pain control currently as well as bowel regimen. If pain improved and patient still requiring rehab at discharge which is expected will have case management [facility] Admission and Anticipated Discharge Date Admission Date: June 09, 2021 Supervising Physician Co-Signing Physician Notes Attending Attestation - Chart reviewed in detail, care plan d/w SHITAL Pearson. I agree w/ the saleh components of her documentation. Cont supportive care for left humerus fracture (sling, pain control, etc). Diverticulitis, cecal - cont antibiotics. Dispo planning for rehab0 Labs/vitals stable. Markie Herrera MD Subjective Patient evaluated this after noon. She states that she did have increased pain this morning despite oxycodone and morphine and decision was made to give small dose of Dilaudid. She notes that this was effective and she did get some sleep however the pain has increased again this afternoon. She is currently sitting up in bed eating lunch but does not have much of an appetite. She is passing gas but no bowel movement yet did discuss that pain medication can slow her bowels and we will attempt bowel regimen and increase ambulation to relieve the symptoms. She notes that she has not had any fevers, chills, chest pain, shortness of breath, nausea or vomiting. She does have some lower abdominal discomfort in suprapubic region but no urinary symptoms at this time. Being covered currently with Augmentin for possible diverticulitis. She is agreeable to follow-up with her primary care about possible Prolia injections given her low vitamin D state. We did discuss that it is likely that she will need some short-term rehab and she notes that her has not very helpful at home and this probably will be the best case. We will continue to monitor her status and obtain pain control also try lidocaine patch to see if effective. She denies any numbness or tingling and is able to tool and die engineer fingers without difficulty with normal cap refill.. Review of Systems Review of Systems: All systems reviewed & are unremarkable except as noted in HPI & below Physical Exam Physical Exam: PHYSICAL EXAM: General: awake, alert, .Laying in bed eating lunch. No acute distress but does note that she is in significant discomfort. Head normocephalic and atraumatic ENTslightly dry mucous membranes pushing oral fluids currently, eyes anicteric and pupils equal and reactive Cardiacregular rate and rhythm, no murmurs rubs or gallops appreciated, no edema or calf tenderness Respiratoryclear to auscultation bilaterally, no wheezes crackles or rales. On room air GIactive to slightly hypoactive bowel sounds, mild discomfort suprapubic and right lower quadrant without guarding or rigidity on palpation Neuro/psych/MSKalert and oriented x3, no focal deficits appreciated. Sensation intact to light touch to left upper extremity normal cap refill, tool and die engineer strength intact in fingers mobile. Discomfort to left proximal humerus upon palpation. Arm in sling currently Skinwarm, dry Results & Data Results & Data ([facility]) Vital Signs (Past 12 Hours) Vital Signs Temp Pulse Resp BP Pulse Ox 06/11/21 07:04 36.8 C 78 16 112/66 94 06/10/21 23:05 37.1 C 74 18 111/68 94 Laboratory Results 06/11/21 06/11/21 06/10/21 Range/Units 07:05 07:05 08:53 WBC 7.30 (4.8-10.8) K/uL RBC 3.89 L (4.2-5.4) M/uL Hgb 11.9 L (12.0-16.0) g/dL Hct 37.5 (37-47) % MCV 96.4 (80-100) fL MCH 30.6 (25-34) pg MCHC 31.7 L (32-36) g/dL RDW Std Deviation 46.9 H (36.4-46.3) fL RDW Coeff of Kelsie 13.4 (11.5-14.5) % Plt Count 254 (130-400) K/uL MPV 9.7 (7.4-10.4) fL Immature Gran % (Auto) 0.1 % Neut % (Auto) 67.6 % Lymph % (Auto) 15.8 % Douglas % (Auto) 12.1 % Eos % (Auto) 4.0 % Baso % (Auto) 0.4 % Neut # (Auto) 4.94 (1.4-6.5) K/uL Lymph # (Auto) 1.15 L (1.2-3.4) K/uL Douglas # (Auto) 0.88 H (0.11-0.59) K/uL Eos # (Auto) 0.29 (0-0.5) K/uL Baso # (Auto) 0.03 (0-0.2) K/uL Immature Gran # (Auto) 0.01 (0.00-0.02) K/uL Sodium 137 (136-145) mmol/L Potassium 4.1 (3.5-5.1) mmol/L Chloride 106 (98-107) mmol/L Carbon Dioxide 25 (21-32) mmol/L Anion Gap 6.0 (3-11) BUN 25 H (7-18) mg/dl Creatinine 1.00 (0.6-1.2) mg/dl Est Cr Clr Drug Dosing 40.1 ml/min Est GFR ( Amer) 60.8 ml/min Est GFR (Non-Af Amer) 52.4 ml/min BUN/Creatinine Ratio 25.4 H (10-20) Glucose 104 H (70-99) mg/dl Calcium 8.4 L (8.5-10.1) mg/dl Magnesium 2.3 (1.8-2.4) mg/dl Total Bilirubin 0.6 (0.2-1) mg/dl Direct Bilirubin 0.2 (0-0.2) mg/dl AST 16 (15-37) U/L ALT 25 (12-78) U/L Alkaline Phosphatase 67 (45-117) U/L Total Protein 6.1 L (6.4-8.2) gm/dl Albumin 3.2 L (3.4-5.0) gm/dl Vitamin B12 (193-986) pg/ml 25-OH Vitamin D Total 24.1 L (30-100) ng/ml TSH (0.300-4.500) uIu/ml 06/10/21 06/10/21 Range/Units 08:53 08:53 WBC (4.8-10.8) K/uL RBC (4.2-5.4) M/uL Hgb (12.0-16.0) g/dL Hct (37-47) % MCV (80-100) fL MCH (25-34) pg MCHC (32-36) g/dL RDW Std Deviation (36.4-46.3) fL RDW Coeff of Kelsie (11.5-14.5) % Plt Count (130-400) K/uL MPV (7.4-10.4) fL Immature Gran % (Auto) % Neut % (Auto) % Lymph % (Auto) % Douglas % (Auto) % Eos % (Auto) % Baso % (Auto) % Neut # (Auto) (1.4-6.5) K/uL Lymph # (Auto) (1.2-3.4) K/uL Douglas # (Auto) (0.11-0.59) K/uL Eos # (Auto) (0-0.5) K/uL Baso # (Auto) (0-0.2) K/uL Immature Gran # (Auto) (0.00-0.02) K/uL Sodium (136-145) mmol/L Potassium (3.5-5.1) mmol/L Chloride (98-107) mmol/L Carbon Dioxide (21-32) mmol/L Anion Gap (3-11) BUN (7-18) mg/dl Creatinine (0.6-1.2) mg/dl Est Cr Clr Drug Dosing ml/min Est GFR ( Amer) ml/min Est GFR (Non-Af Amer) ml/min BUN/Creatinine Ratio (10-20) Glucose (70-99) mg/dl Calcium (8.5-10.1) mg/dl Magnesium (1.8-2.4) mg/dl Total Bilirubin (0.2-1) mg/dl Direct Bilirubin (0-0.2) mg/dl AST (15-37) U/L ALT (12-78) U/L Alkaline Phosphatase (45-117) U/L Total Protein (6.4-8.2) gm/dl Albumin (3.4-5.0) gm/dl Vitamin B12 347 (193-986) pg/ml 25-OH Vitamin D Total (30-100) ng/ml TSH 15.300 H (0.300-4.500) uIu/ml PG Care Time/CCT Total # of Minutes Spent Total Time Spent with Patient: Total time spent is greater than 50% in coordination of care (as documented) at patient's floor/unit and/or counseling patient: Coding Level of Care Code 18320 Subseq Hosp Care Lvl 3 Diagnoses Fracture, humerus S42.309A Encounter type: initial encounter Fracture alignment: nondisplaced Fracture type: closed Humerus Location: proximal Laterality: unspecified laterality Diverticulitis K57.92 Multiple sclerosis G35 Peripheral neuropathy G62.9 Vitamin D deficiency disease E55.9 Hypothyroidism E03.9 Gait disturbance R26.9 Depression with anxiety F41.8 Asthma J45.909 Anemia D64.9 (1) Fracture, humerus Encounter type: initial encounter Fracture alignment: nondisplaced Fracture type: closed Humerus Location: proximal Laterality: unspecified laterality
[2021-06-11] MEDS ORDERED: POLYETHYLENE (MIRALAX) 17 GM PACK PO SCH (09:00)
[2021-06-11] MEDS ORDERED: HYDROmorphone INJ 0.5 MG/0.5 ML SYR IV PRN (13:53)
[2021-06-11] MEDS: CYANOCOBALAMIN 30 MCG in SYRINGE 0.97 ML IM SCH ×2 (16:07→16:11)
[2021-06-11] MEDS: LIDOCAINE 5% 1 PATCH TD SCH (16:08)
[2021-06-11] MEDS: DOCUSATE SODIUM/SENNA 50/8.6MG TAB PO SCH (19:50)
[2021-06-11] MEDS: DULoxetine HCL 30 MG CAP PO SCH (19:50)
[2021-06-11] MEDS: POLYETHYLENE (MIRALAX) 17 GM PACK PO SCH (19:50)
[2021-06-11] MEDS: ACETAMINOPHEN 325 MG TAB PO PRN ×2 (19:53→23:55)
[2021-06-11] MEDS: ENOXAPARIN INJ 40 MG/0.4 ML SYR SQ SCH (23:55)
[2021-06-12] MEDS: LEVOTHYROXINE SODIUM 88 MCG TABLET PO SCH (05:56)
[2021-06-12 05:58] LABS: Basophils # (auto) 0.03 K/uL (0-0.2); Basophils % (auto) 0.5 %; Eosinophils % (auto) 4.8 %; Hematocrit (blood only) 35.3 % (37-47); Hemoglobin 11.5 g/dL (12.0-16.0); Immature Granulocytes # (auto) 0.01 K/uL (0.00-0.02); Immature Granulocytes % (auto) 0.2 %; Lymphocytes # (auto) 1.53 K/uL (1.2-3.4); Lymphocytes % (auto) 24.3 %; Mean Corpuscular Hemoglobin 30.8 pg (25-34); Mean Corpuscular Hgb Conc 32.6 g/dL (32-36); Mean Corpuscular Volume 94.6 fL (80-100); Mean Platelet Volume 9.7 fL (7.4-10.4); Monocytes # (auto) 0.65 K/uL (0.11-0.59); Monocytes % (auto) 10.3 %; Neutrophils # (auto) 3.77 K/uL (1.4-6.5); Neutrophils % (auto) 59.9 %; Platelet Count 244 K/uL (130-400); RDW Coefficient of Variation 13.2 % (11.5-14.5); RDW Standard Deviation 45.5 fL (36.4-46.3); Red Blood Count 3.73 M/uL (4.2-5.4); White Blood Count 6.29 K/uL (4.8-10.8)
[2021-06-12 06:28] LABS: BUN Creatinine Ratio 26.8 (10-20); Calcium 8.2 mg/dl (8.5-10.1); Creatinine Clr Calc Pharmacy 51.4 ml/min; Est GFR (African American) 82.1 ml/min; Est GFR (Non-African American) 70.8 ml/min; Magnesium 2.1 mg/dl (1.8-2.4)
[2021-06-12] MEDS: ACETAMINOPHEN 325 MG TAB PO PRN (08:48)
[2021-06-12] MEDS: AMOXICILLIN/CLAVULANATE 875 MG TAB PO SCH ×2 (08:52→17:39)
[2021-06-12] MEDS: CYANOCOBALAMIN 500 MCG TABLET (VITAMIN B-12) PO SCH (08:54)
[2021-06-12] MEDS: OXYBUTYNIN CHLORIDE XL 5 MG TABCR PO SCH (08:56)
[2021-06-12] MEDS: POLYETHYLENE (MIRALAX) 17 GM PACK PO SCH ×2 (09:06→20:17)
--- NOTE | 2021-06-12 09:17 | Hospitalist Progress Note ---
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 Patient does endorse that she would like to avoid surgery if possible. Will need repeat imaging in 2 weeks and follow-up with Dr. Valle off Continue with fall risk while inpatient Pain control with Tylenol as needed, oxycodone increased to 10 mg as needed for moderate pain as she has been requiring morphine still for pain control at times --> Given 0.5 mg Dilaudid morning 06/11 with some confusion and avoiding. Was effective and will decrease to 0.25mg IV as needed to prevent worsening mentation Continue lidocaine patch, oxycodone prn Consider topical voltaren -- will order to see if effective Has not had much appetite due to pain and not much oral intake -- placed on NS @ 80cc/hr x 1L and encouraged ambulation to stimulate BM which may also be contributing. She would like to avoid supp at this time but if no BM agreeable for AM Continue with ice, elevation sling. Per Ortho okay to remove sling for showering and dressing only --> Bowel regimen with MiraLAX which has been increased to twice daily as well as senna at night. Continue to monitor given hypoactive bowel sounds on exam and encourage increased ambulation --> 1/2 bottle mag citrate 06/12 ordered. monitor response PT and OT consults placed in anticipating short-term rehab given that she uses left hand for balance at home and is right-handed and does not think her will be able to properly assist. Case management to follow Vit D level low -- at 24 but already on 50,000IU weekly. prolia injections outpt if patient agreeable--> she is agreeable and will follow up with her primary care. Will send message at discharge regarding need for follow-up on this Also w memory fog, per outpt Neuro to have TSH/B12 checked -- TSH elevated and increase synthroid 88mcg daily and discussed will need repeat TFT in 6 weeks for further adjustment -- B12 pending given weakness as well--> Low normal at [address] on B12 supplementations at this time urine without infection (2) Diverticulitis: Plan: Diverticulosis of cecum with surrounding inflammatory changes likely representing developing diverticulitis Denied any abdominal symptoms but was started on Augmentin and will continue this twice daily to complete course Of note scan abdomen pelvis on mission did show a fluid-filled gallbladder, dilated with multiple gallstones measuring 8.7 cm in craniocaudal dimension without evidence of pericholestatic edema or gallbladder wall filling and has a normal common bile duct without dilation. Does not appear that liver function testing done on admission however patient did deny any abdominal symptoms. White blood count with normal limits and LFTs without abnormalities Did have some lower abdominal discomfort however has not had a bowel movement and working on bowel regimen as above. No fevers or need for further imaging at this time unless becomes febrile or elevation of white count or worsening of her symptoms No BM. Bowel regimen as above. If worsening pain, no longer passing flatus, will obtain KUB Continue to monitor (3) Multiple sclerosis: Plan: Follows with Neurology- DMARDS stopped in 11/09 PT/OT evaluation for ambulatory need or support in regards to left arm immobile for multiple weeks in sling--> May need rehab as above at least for short-term but has been is able to assist with activities of daily living Consider neurology consult following PT/OT evaluation if clinical symptoms appear to be resurfacing TSH elevated -- increased supp as above and will need repeat TFT outpatient Vit D low--will need follow-up PCP but possible Prolia injection (4) Peripheral neuropathy: Plan: As above B12 pending as well-> low normal and placing on daily supplementation IM while inpatient (refusing) so placed on PO and would continue (5) Vitamin D deficiency disease: Plan: With osteopenia Already on 50,000 cholecalciferol-- > will need to follow-up with primary care about possible Prolia injections given review of primary care note with DEXA scan most recently with osteopenia and was to have a repeat DEXA scan this year Patient agreeable possible injections and will need follow-up with PCP (6) Hypothyroidism: Plan: On levothyroxine 75mcg daily prior to admission but was to have her thyroid function checked at most recent neurology office visit follow-up but this was never done and patient did endorse memory fog weakness at times and other symptoms of hypothyroidism Check TSH which was elevated at 15.3 which would be higher than anticipated even in setting of stress and discussed increasing her Synthroid to 88 mcg daily and repeat thyroid function as an outpatient with primary care --> Recommend repeat thyroid 4 to 6 weeks outpatient dischargemonths as needed (7) Gait disturbance: Plan: As above - PT/OT evaluations pending as above (8) Depression with anxiety: Plan: Continue duloxetine (9) Asthma: Plan: Mild with cough- controlled on albuterol inhaler (chronic and no change per patient, no sputum production) 08/11/2019: FVC: 2.20/87 % (2% change), FEV1: 1.59/86 % (4% change), FEV1/FVC: 72 %/97 % (2% change), 25-75 %: 1.04/71 % (12% change), RV: 1.12/48 %, T.68/75 %, RV/T%/64%, DLCO: 70%, dL/VA: 87 % - no acute needs lung clear on room air (10) Anemia: Plan: Hemoglobin 11.3 from 11.9 (13 on admit but was on IVF and back on IVF today) Suspect some bleeding from fracture however no obvious hematoma appreciated on exam B12 also low which was checked given her neuropathy and replacement as ordered We will watch her iron on morning to ensure no further replacement needed but also monitor CBC Plan: Likely to need acute rehab at discharge however attempting to obtain better pain control currently as well as bowel regimen. Possible rehab excepted at discharge --> CM following Lovenox subcu for DVT prophylaxis while inpatient Admission and Anticipated Discharge Date Admission Date: June 09, 2021 Supervising Physician Co-Signing Physician Notes Attending Attestation - Chart reviewed in detail, care plan d/w SHITAL Pearson. I agree w/ the saleh components of her documentation. Cont supportive care for left humerus fracture. Adjust pain meds. Diverticulitis, cecal - cont antibiotics. Labs/vitals remain stable. Rehab after d/c. Markie Herrera MD Subjective Patient evaluated this morning. Feeling better and just got pain medication but states "I know it's there". Discussed should improve over next 24 hours but if needed could get IV medication. Not eating much due to not much of an appetite with the pain. Urine noted to be concentrated as well and will place on some IVF while appetite poor. RN states some confusion overnight but since resolved and that is why they were attempting to avoid the IV medication and using scheduled tylenol. Will decrease dose in case she does end up needing this. Admits now passing more gas but no BM. Denies abdominal pain and would like to hold off on suppository at this time. No fevr, chills, chest pain, shortness of breath, abdominal pain, nausea or vomiting reported. No dysuria at this time. Review of Systems Review of Systems: All systems reviewed & are unremarkable except as noted in HPI & below Physical Exam Physical Exam: PHYSICAL EXAM: General: awake, alert, .Laying in bed. No acute distress. Head normocephalic and atraumatic ENTslightly dry mucous membranes pushing oral fluids currently, eyes anicteric and pupils equal and reactive to light Cardiacregular rate and rhythm, no murmurs rubs or gallops appreciated, no edema or calf tenderness Respiratoryclear to auscultation bilaterally, no wheezes crackles or rales. On room air GIactive to slightly hypoactive bowel sounds, no tenderness to palpation, no gaurding or rigidity Neuro/psych/MSKalert and oriented x3, no focal deficits appreciated. Sensation intact to light touch to left upper extremity normal cap refill, boarder machine strength intact in fingers mobile. Discomfort to left proximal humerus upon palpation. Arm in sling currently Skinwarm, dry Results & Data Results & Data ([facility]) Vital Signs (Past 12 Hours) Vital Signs Temp Pulse Resp BP Pulse Ox 06/12/21 07:26 36.6 C 83 16 123/77 94 06/11/21 22:47 37.0 C 90 16 131/80 93 Laboratory Results 06/12/21 06/12/21 Range/Units 05:43 05:43 WBC 6.29 (4.8-10.8) K/uL RBC 3.73 L (4.2-5.4) M/uL Hgb 11.5 L (12.0-16.0) g/dL Hct 35.3 L (37-47) % MCV 94.6 (80-100) fL MCH 30.8 (25-34) pg MCHC 32.6 (32-36) g/dL RDW Std Deviation 45.5 (36.4-46.3) fL RDW Coeff of Kelsie 13.2 (11.5-14.5) % Plt Count 244 (130-400) K/uL MPV 9.7 (7.4-10.4) fL Immature Gran % (Auto) 0.2 % Neut % (Auto) 59.9 % Lymph % (Auto) 24.3 % Kinney % (Auto) 10.3 % Eos % (Auto) 4.8 % Baso % (Auto) 0.5 % Neut # (Auto) 3.77 (1.4-6.5) K/uL Lymph # (Auto) 1.53 (1.2-3.4) K/uL Kinney # (Auto) 0.65 H (0.11-0.59) K/uL Eos # (Auto) 0.30 (0-0.5) K/uL Baso # (Auto) 0.03 (0-0.2) K/uL Immature Gran # (Auto) 0.01 (0.00-0.02) K/uL Sodium 133 L (136-145) mmol/L Potassium 4.0 (3.5-5.1) mmol/L Chloride 106 (98-107) mmol/L Carbon Dioxide 25 (21-32) mmol/L Anion Gap 2.0 L (3-11) BUN 21 H (7-18) mg/dl Creatinine 0.78 (0.6-1.2) mg/dl Est Cr Clr Drug Dosing 51.4 ml/min Est GFR ( Amer) 82.1 ml/min Est GFR (Non-Af Amer) 70.8 ml/min BUN/Creatinine Ratio 26.8 H (10-20) Glucose 96 (70-99) mg/dl Calcium 8.2 L (8.5-10.1) mg/dl Magnesium 2.1 (1.8-2.4) mg/dl Iron 43 (35-150) mcg/dl PG Care Time/CCT Total # of Minutes Spent Total Time Spent with Patient: Total time spent is greater than 50% in coordination of care (as documented) at patient's floor/unit and/or counseling patient: Coding Level of Care Code 49048 Subseq Hosp Care Lvl 2 Diagnoses Fracture, humerus S42.309A Encounter type: initial encounter Fracture alignment: nondisplaced Fracture type: closed Humerus Location: proximal Laterality: unspecified laterality Diverticulitis K57.92 Multiple sclerosis G35 Peripheral neuropathy G62.9 Vitamin D deficiency disease E55.9 Hypothyroidism E03.9 Gait disturbance R26.9 Depression with anxiety F41.8 Asthma J45.909 Anemia D64.9 (1) Fracture, humerus Encounter type: initial encounter Fracture alignment: nondisplaced Fracture type: closed Humerus Location: proximal Laterality: unspecified laterality
[2021-06-12] MEDS: oxyCODONE HCL IR 5 MG TAB (IMMEDIATE RELEASE) PO PRN ×2 (10:19→22:46)
[2021-06-12] MEDS ORDERED: SODIUM CHLORIDE 0.9% 1000ML 1,000 ML IV SCH (11:45)
[2021-06-12] MEDS ORDERED: HYDROmorphone INJ 0.5 MG/0.5 ML SYR IV PRN (11:46)
[2021-06-12] MEDS: LIDOCAINE 5% 1 PATCH TD SCH (12:02)
[2021-06-12] MEDS ORDERED: MAGNESIUM CITRATE 296 ML/BTL PO ONE (14:36)
[2021-06-12] MEDS: DULoxetine HCL 30 MG CAP PO SCH (20:17)
[2021-06-12] MEDS: DOCUSATE SODIUM/SENNA 50/8.6MG TAB PO SCH (20:17)
[2021-06-12] MEDS: DICLOFENAC SOD 1% GEL 100 GM TUBE EXT SCH (20:19)
[2021-06-12] MEDS: ENOXAPARIN INJ 40 MG/0.4 ML SYR SQ SCH (22:46)
[2021-06-12 23:04] VITALS: O2SAT 94
[2021-06-13] MEDS ORDERED: oxyCODONE HCL IR 5 MG TAB (IMMEDIATE RELEASE) PO PRN (01:39)
--- NOTE | 2021-06-13 01:39 | Communication Note ---
Date of Service: June 13, 2021 Subjective: Nursing was concerned that the patient was getting 10 mg of Oxycodone and wanted to have a 5mg dose in as well as the patient was 81 and there was concern for delirium and falls. A/P: Order was changed to 5mg or 10mg based on pain scale.
[2021-06-13] MEDS: oxyCODONE HCL IR 5 MG TAB (IMMEDIATE RELEASE) PO PRN ×2 (04:25→13:34)
[2021-06-13] MEDS: LEVOTHYROXINE SODIUM 88 MCG TABLET PO SCH (04:26)
[2021-06-13 08:19] VITALS: BP 125/73; TEMP 97.3
--- NOTE | 2021-06-13 08:49 | Hospitalist Progress Note ---
Date of Service June 13, 2021 Assessment & Plan Admission and Anticipated Discharge Date Admission Date: June 09, 2021 Results & Data Results & Data ([facility]) Vital Signs (Past 12 Hours) Vital Signs Temp Pulse Resp BP Pulse Ox 06/13/21 08:18 36.3 C L 68 16 125/73 94 06/12/21 22:45 36.9 C 85 18 129/77 94 Laboratory Results 06/12/21 Range/Units 05:43 NT-Pro-B Natriuret Pep 76 (0-1800) pg/ml PG Care Time/CCT Total # of Minutes Spent Total Time Spent with Patient: Total time spent is greater than 50% in coordination of care (as documented) at patient's floor/unit and/or counseling patient: Coding
[2021-06-13] MEDS: AMOXICILLIN/CLAVULANATE 875 MG TAB PO SCH (08:55)
[2021-06-13] MEDS: LIDOCAINE 5% 1 PATCH TD SCH (08:56)
[2021-06-13] MEDS: POLYETHYLENE (MIRALAX) 17 GM PACK PO SCH (08:56)
[2021-06-13] MEDS: CYANOCOBALAMIN 500 MCG TABLET (VITAMIN B-12) PO SCH (08:56)
[2021-06-13] MEDS: DICLOFENAC SOD 1% GEL 100 GM TUBE EXT SCH (08:57)
[2021-06-13] MEDS ORDERED: OXYBUTYNIN CHLORIDE XL 5 MG TABCR PO SCH (09:00)
[2021-06-13 09:20] LABS: Hematocrit (blood only) 36.1 % (37-47); Hemoglobin 11.6 g/dL (12.0-16.0); Mean Corpuscular Hemoglobin 31.2 pg (25-34); Mean Corpuscular Hgb Conc 32.1 g/dL (32-36); Mean Platelet Volume 9.7 fL (7.4-10.4); Platelet Count 254 K/uL (130-400); RDW Coefficient of Variation 13.4 % (11.5-14.5); RDW Standard Deviation 47.5 fL (36.4-46.3); Red Blood Count 3.72 M/uL (4.2-5.4); White Blood Count 6.43 K/uL (4.8-10.8)
[2021-06-13 09:37] LABS: BUN Creatinine Ratio 25.4 (10-20); Calcium 8.3 mg/dl (8.5-10.1); Creatinine Clr Calc Pharmacy 54.2 ml/min; Est GFR (African American) 87.4 ml/min; Est GFR (Non-African American) 75.4 ml/min; Potassium 4.2 mmol/L (3.5-5.1)
--- NOTE | 2021-06-13 13:16 | Discharge Summary ---
Date of Service June 13, 2021 Admission HPI Per Admitting Provider 81 YOF with past medical history of: MS (DMARDS stopped in 10/2019), lumbar canal stenosis, gait disturbance, depression/anxiety, asthma. Patient comes to the emergency department today s/p fall at home. The patient was getting up to go outside and fell over onto her side onto hard wood floor. Patient does not remember putting her hand out or hitting anything else. The patient has a history of MS and usually walks with her cane, but uses her other arm to help balance herself and hold herself steady. The patient and the feel she has been a little more unsteady on her feet over the past couple of weeks, but no other falls. In the EMD the patient had multiple radiological films performed to appropriately evaluate for other fractures. She was noted to have a left humerus fracture and was splinted. Incidental finding on her CT scan of abdomen and pelvis as "evolving diverticulitis". She denies any abdominal pain/diarrhea, fevers chills, was started on Augmentin oral. The patient was prepared for original discharge but was unstable on her feet which would likely to result in fall again. The patient is in a sling. She does endorse some left hip pain, but radiological evaluation is negative as well as ROM intact and able to bear weight. Patient will be admitted for PT/OT evaluation as her arm will be in a sling for extended weeks. Patient is open to rehab if she needs it. Orthopaedics consulted for evaluation. Ice therapy, multi-tiered pain control regime. Patient COVID test on admission is: NEGATIVE Admission Exam Per Admitting Provider PHYSICAL EXAM: General: awake, alert, no apparent distress Head: Normocephalic, atraumatic ENT: PERRL, EOMI, no pharyngeal exudate, mucous membranes moist Neuro: AAO x 3, speech clear and appropriate, strength intact bilaterally 5/5, sensation intact and equal all extremities and dermatomes, no pronator drift, cervical spine cleared radiologically and clinically, no pain with movement or palpation. Chest: equal rise and fall of the chest, no accessory muscle use, Clear to auscultation, on room air, Cardiac: Regular rate and rhythm, telemetry reviewed, skin warm dry, cap refill <3 seconds, peripheral pulses +2 no JVD, no murmur, : Spontaneously voiding, no pain, no CVA tenderness, Extremities: Left arm in sling, pain to left shoulder and arm with movement, good distal movement of fingers and hand, Normal inspection, no peripheral edema or erythema, calfs nontender to palpation Psych: Normal mood and affect Skin: no rash or erythema Principal Diagnosis Left Humerus Fracture Discharge Exam General: awake, alert, .Laying in bed. No acute distress. Head normocephalic and atraumatic ENTmmm, trachea midline without deviation Resp- CTAB, no w/c/r, stable on room air Cardiac: RRR, no m/r/g, no edema, pulses palpable bilaterally GI: +BS, nontender, nondistended, no organomegaly appreciated Neuro: no focal deficit MSK: L arm in sling, fingers mobile, sensation intact, pulses palpable. tender to palpation left proximal humerus, NVI, b/l neuropathy Psych: AOx3 (periods of memory issues -- states in [employer], May but thought was 2020, easily reoriented) Skin; warm, dry Discharge Data Allergies Allergy/AdvReac Type Severity Reaction Status Date / Time animal dander Allergy Intermediate SNEEZING, Verified 06/09/21 16:08 CONGESTION gluten Allergy Intermediate GLUTEN Verified 06/09/21 16:08 INTOLERANT-GI UPSET ibuprofen Allergy Mild ? UNKNOWN Verified 06/09/21 16:08 - "SO LONG AGO" Sulfa (Sulfonamide Allergy Unknown DIARRHEA Verified 06/09/21 16:08 Antibiotics) donepezil AdvReac Intermediate nightmares Verified 06/09/21 16:08 lactase [From Dairy Aid] AdvReac Intermediate Gastrointestinal Verified 06/09/21 16:08 Upset baclofen AdvReac Unknown CAN'T Verified 06/09/21 16:08 REMEMBER chocolate flavor AdvReac Unknown CAN'T Verified 06/09/21 16:08 REMEMBER lactose AdvReac Unknown Gastrointestinal Verified 06/10/21 08:12 Upset peanut AdvReac Unknown Gastrointestinal Verified 06/10/21 08:12 Upset sulfabenzamide AdvReac Unknown CAN'T Verified 06/09/21 16:08 REMEMBER sulfamethoxazole AdvReac Unknown CAN'T Verified 06/09/21 16:08 [From Bactrim] REMEMBER trimethoprim [From Bactrim] AdvReac Unknown CAN'T Verified 09/20/21 16:08 REMEMBER Consultations 06/09/21 19:35 Consult Orthopedic Surgery Routine 06/09/21 19:36 ED Decision to Admit Stat 06/09/21 20:08 Consult Orthopedic Surgery Routine Ordered Studies Cervical Spine CT 06/09/21 15:06 CT SCAN OF THE CERVICAL SPINE CLINICAL HISTORY: Trauma. Fall. COMPARISON STUDY: No priors. TECHNIQUE: CT scan of the cervical spine is performed from the skull base to the upper thoracic spine. Images are reviewed in the axial, sagittal, and coronal planes. IV contrast was not administered for this examination. A dose lowering technique was utilized adhering to the principles of ALARA. CT DOSE: 1501.60 mGy.cm FINDINGS: Skeletal structures: The skeletal structures are osteopenic. There is no evidence of fracture or subluxation involving the cervical spine. Vertebral body height is maintained. There is minimal anterolisthesis at C4-C5. Alignment is otherwise preserved. Anterior osteophytes are seen throughout. The odontoid process and lateral masses are intact. The atlantoaxial articulation is preserved noting productive degenerative change. The spinous processes appear intact. There is mild to moderate multilevel cervical spondylosis. Uncovertebral and facet arthropathy contribute to neural foraminal narrowing at several levels. Intervertebral discs: There is moderate disc space narrowing at C4-C5 and C5-C6. Mild disc space narrowing is seen at the remaining cervical levels. Central canal: Posterior disc osteophyte complexes are seen at all cervical levels between C3-C4 and C5-C6. This likely contributes to multilevel acquired compromise of the central canal. Soft tissues: The prevertebral and paraspinous soft tissues are within normal limits. There is atherosclerotic calcification of the carotid bulbs. Calvarium: The visualized calvarium at the skull base appears intact. Brain parenchyma: Partially visualized brain parenchyma at the skull base is within normal limits. Sinuses and mastoids: The visualized paranasal sinuses are clear. The mastoid air cells are well pneumatized. Lung apices: Clear as visualized. IMPRESSION: 1. There is no evidence of fracture or subluxation involving the cervical spine. 2. Osteopenia and spondylotic change as above. ACT 112: Negative or not required by law. Electronically signed by: Brando Wallace M.D. 06/09/2021 4:52 PM Chest X-Ray 06/09/21 15:08 XR chest 1V portable INDICATION: [place] ^fall . TECHNIQUE: Single frontal radiograph of the chest was obtained. Comparison: Comparison is made to chest one view 11/14/2018 FINDINGS: No lines and tubes are seen. The cardiomediastinal silhouette is normal. The lungs are clear. No evidence of pleural effusion or pneumothorax. Partial visualization of the humeral head/neck fracture better evaluated on dedicated shoulder and humeral radiographs. IMPRESSION: 1. No acute chest disease. 2. For detailed findings of humeral fracture, please see dedicated humerus and shoulder radiographs performed same day. ACT 112: Negative or not required by law. Electronically signed by: Adi Swan M.D. 06/09/2021 4:[address] 06/09/21 15:08 CT SCAN OF THE BRAIN WITHOUT IV CONTRAST CLINICAL HISTORY: Fall. COMPARISON STUDY: MRI of the brain dated 04/04/2018. TECHNIQUE: Unenhanced axial CT scan of the brain is performed from the vertex to the skull base. A dose lowering technique was utilized adhering to the principles of ALARA. FINDINGS: Brain parenchyma: There are age-related involutional changes noting moderate to advanced confluent subcortical and periventricular microangiopathic change. There is no hemorrhage, mass effect, or evidence of acute territorial ischemia by CT criteria. Mcdonough-white matter differentiation is preserved. No extra-axial fluid collection is seen. Ventricles, sulci, cisterns: Prominent secondary to involutional change. Intracranial vasculature: There is atherosclerotic calcification of the cavernous carotid and vertebral arteries. Calvarium: The skeletal structures are osteopenic. No depressed calvarial fracture is identified. Sinuses and mastoids: The visualized paranasal sinuses are clear. The mastoid air cells are well pneumatized. Orbits: The bony orbits are grossly intact. There are bilateral ocular lens implants. IMPRESSION: There is no hemorrhage, mass effect, or evidence of acute territorial ischemia by CT criteria. ACT 112: Negative or not required by law. Electronically signed by: Brando Wallace M.D. 06/09/2021 4:44 PM Humerus X-Ray 06/09/21 15:08 LEFT SHOULDER 2 VIEWS; LEFT HUMERUS 2 VIEWS CLINICAL HISTORY: Fall. Left arm injury. FINDINGS: 2 views of the left shoulder with AP and lateral views of the left humerus are obtained. No prior studies are available for comparison at the time of dictation. The skeletal structures are osteopenic. There is an impacted and comminuted fracture of the left humeral head and neck. There is approximately 7 mm of offset of the humeral shaft at the head/neck junction, as well as displaced fragments of the greater tuberosity. Overlying soft tissue edema is noted. No additional fracture is identified. The glenohumeral and acromioclavicular joints appear maintained. The distal humerus appears intact. The left elbow joint is grossly normal. Imaged left lung parenchyma appears clear noting basilar atelectasis. IMPRESSION: Impacted and comminuted fracture of the left humeral head and neck as above. Electronically signed by: Brando Wallace M.D. 06/09/2021 4:03 PM Shoulder X-Ray 06/09/21 15:08 LEFT SHOULDER 2 VIEWS; LEFT HUMERUS 2 VIEWS CLINICAL HISTORY: Fall. Left arm injury. FINDINGS: 2 views of the left shoulder with AP and lateral views of the left humerus are obtained. No prior studies are available for comparison at the time of dictation. The skeletal structures are osteopenic. There is an impacted and comminuted fracture of the left humeral head and neck. There is approximately 7 mm of offset of the humeral shaft at the head/neck junction, as well as displaced fragments of the greater tuberosity. Overlying soft tissue edema is noted. No additional fracture is identified. The glenohumeral and acromioclavicular joints appear maintained. The distal humerus appears intact. The left elbow joint is grossly normal. Imaged left lung parenchyma appears clear noting basilar atelectasis. IMPRESSION: Impacted and comminuted fracture of the left humeral head and neck as above. Electronically signed by: Brando Wallace M.D. 06/09/2021 4:03 PM Abdomen/Pelvis CT 06/09/21 15:09 CT abd pelvis IV con only CLINICAL HISTORY: fall COMPARISON STUDY: November 06, 2011 TECHNIQUE: A dose lowering technique was utilized adhering to the principles of ALARA. CT DOSE: FINDINGS: Lower chest: Minimal atelectasis is seen at dependent portions of bilateral lower lobes.. Liver: The contrast-enhanced liver is normal in size, contour, and attenuation. There is no intrahepatic biliary ductal dilatation. The hepatic veins and portal veins are patent. Gallbladder: Gallbladder is fluid-filled, dilated with multiple gallstones and measuring 8.7 cm in craniocaudal dimension. No evidence of pericholecystic edema or gallbladder wall thickening. Common bile duct is nondilated. Spleen: Normal in size and attenuation. Pancreas: Unremarkable. Adrenal glands: Unremarkable. Kidneys: There is symmetric renal cortical enhancement. The kidneys are normal in size without hydronephrosis. Pelvic viscera: Urinary bladder is partially decompressed and show normal appearance. Uterus is atrophic. No fluid is seen within cul-de-sac. Bowel: Small hiatal hernia is seen. Bowel loops are nondilated. Appendix is not well seen. Diverticulosis of the cecum is seen. Cecum is folded anteriorly and superiorly and associated with mild surrounding fat stranding (7/205) and most likely representing developing diverticulitis. Cecal bascule is less likely. Diverticulosis of sigmoid colon is seen without evidence of diverticulitis. Peritoneum: There is no intraperitoneal free air or abdominal ascites. Vasculature: Abdominal aorta is normal in caliber with scattered calcifications of its wall. Adenopathy: Multiple small lymph nodes are seen within retroperitoneal region and mesentery, measuring less than 1 cm in short axis and considered nonpathological by CT size criteria. Skeletal structures: Multilevel degenerative changes of the spine. Mild anterolisthesis of L4 on L5 and L5 on S1 is seen. No definite aggressive osseous lesions are seen. No evidence of acute fracture . IMPRESSION: 1. No acute traumatic injury to the solid organs or vascular structures. Nondilated loops of bowel. 2. Moderate hiatal hernia. 3. Dilated gallbladder. Cholelithiasis without cholecystitis. Findings are stable since prior. 4. Diverticulosis of cecum with surrounding inflammatory changes likely representing developing diverticulitis. Diverticulosis of sigmoid colon is seen without evidence of diverticulitis. 5. Multilevel degenerative changes of the spine and osteopenia. 6. The rest of findings as above. ACT 112: Negative or not required by law. The above report was generated using voice recognition software. It may contain grammatical, syntax or spelling errors. Electronically signed by: Melissa Lindo DO 06/09/2021 5:08 PM Pelvis X-Ray 06/09/21 15:09 SINGLE VIEW PELVIS CLINICAL HISTORY: Fall. FINDINGS: 2 AP, portable, supine pelvic radiographs are correlated with pelvic CT dated 11/06/2011. The skeletal structures are osteopenic. There is no radiographic evidence of acute fracture involving the hips or bony pelvis. Mild to moderate degenerative joint space narrowing is seen in the hips. Degenerative sclerosis is noted in the sacroiliac joints. Spondylotic change is seen in the partially imaged lumbar spine. The overlying soft tissues are within normal limits. Numerous phleboliths are seen in the pelvis. There is atherosclerotic calcification of the femoral arteries. IMPRESSION: No acute bony abnormality is identified. Electronically signed by: Brando Wallace M.D. 06/09/2021 4:01 PM Femur X-Ray 06/09/21 16:42 LEFT FEMUR 3 VIEWS CLINICAL HISTORY: Fall. Left leg pain. FINDINGS: AP, frog-leg, and crosstable lateral views of the left femur are correlated with pelvic radiograph performed the same day 06/09/2021. The skeletal structures are osteopenic. There is no radiographic evidence of left femoral fracture. The visualized left hemipelvis appears intact. Degenerative joint space narrowing is noted in the left hip. The overlying soft tissues are normal as imaged. Excreted IV contrast is seen within the distal left ureter and the partially imaged bladder. Atherosclerotic calcification is noted in the left femoral artery. IMPRESSION: There is no radiographic evidence of left femoral fracture. Electronically signed by: Brando Wallace M.D. 06/09/2021 5:02 PM Hospital Course (1) Fracture, humerus: Status fall at home in patient with unsteady gait and weakness with a history of MS Age-rel osteopor w current path fracture, left humerus X-ray shows impacted and comminuted fracture of the left humeral head and neck Orthopedics consultedappreciate assistance. Patient does endorse that she would like to avoid surgery if possible. Will need repeat imaging in 2 weeks and follow-up with Dr. Valle off Continue with fall risk while inpatient Pain control with Tylenol as needed, oxycodone increased to 10 mg as needed for moderate pain as she has been requiring morphine still for pain control at times and to utilize 5-10mg as needed for control Continue lidocaine patch, Voltaren IVF provided for supportive care initially with poor intake 2nd to pain --> improved with control and bowel movement and continue bowel regimen at rehab PT/OT with recs for rehab --> arranged for [facility] Vit D level low -- at 24 but already on 50,000IU weekly. Prolia injections outpt if patient agreeable--> she is agreeable and will follow up with her primary care. Also w memory fog, per outpt Neuro to have TSH/B12 checked -- TSH elevated and increase Synthroid 88mcg daily and discussed will need repeat TFT in 6 weeks for further adjustment -- B12 pending given weakness as well--> Low normal at [address] on B12 supplementations at this time urine without infection (2) Diverticulitis: Diverticulosis of cecum with surrounding inflammatory changes likely representing developing diverticulitis Denied any abdominal symptoms but was started on Augmentin and will continue this twice daily to complete course Of note scan abdomen pelvis on mission did show a fluid-filled gallbladder, dilated with multiple gallstones measuring 8.7 cm in craniocaudal dimension without evidence of pericholestatic edema or gallbladder wall filling and has a normal common bile duct without dilation. Does not appear that liver function testing done on admission however patient did deny any abdominal symptoms. White blood count with normal limits and LFTs without abnormalities Did have some lower abdominal discomfort however this has resolved with BM No pain on day of d/c Discharged on course Augmentin to complete (3) Multiple sclerosis: Follows with Neurology- DMARDS stopped in 11/09 PT/OT evaluation for ambulatory need or support in regards to left arm immobile for multiple weeks in sling--> May need rehab as above at least for short-term but has been is able to assist with activities of daily living Rehab at discharge to [facility] Follow up Neurology outpatient Vit D/B12/Synthroid as above (4) Peripheral neuropathy: As above B12 > low normal and placing on daily supplementation given memory issues and neuropathy and continued at discharge (5) Vitamin D deficiency disease: With osteopenia Already on 50,000 cholecalciferol-- > will need to follow-up with primary care about possible Prolia injections given review of primary care note with DEXA scan most recently with osteopenia and was to have a repeat DEXA scan this year Patient agreeable possible injections and will need follow-up with PCP (6) Hypothyroidism: On levothyroxine 75mcg daily prior to admission but was to have her thyroid function checked at most recent neurology office visit follow-up but this was never done and patient did endorse memory fog weakness at times and other symptoms of hypothyroidism Check TSH which was elevated at 15.3 which would be higher than anticipated even in setting of stress and discussed increasing her Synthroid to 88 mcg daily and repeat thyroid function as an outpatient with primary care --> Recommend repeat thyroid 4 to 6 weeks outpatient dischargemonths as needed (7) Gait disturbance: As above - PT/OT evaluations pending as above (8) Depression with anxiety: Continued duloxetine (9) Asthma: Mild with cough- controlled on albuterol inhaler (chronic and no change per patient, no sputum production) 08/11/2019: FVC: 2.20/87 % (2% change), FEV1: 1.59/86 % (4% change), FEV1/FVC: 72 %/97 % (2% change), 25-75 %: 1.04/71 % (12% change), RV: 1.12/48 %, T.68/75 %, RV/T%/64%, DLCO: 70%, dL/VA: 87 % - no acute needs lung clear on room air (10) Anemia: Hemoglobin 11.3 from 11.9 (13 on admit but was on IVF) Iron wnl but low normal B12 low normal and placed on replacement Hgb improved on repeat Lovenox subcu for DVT prophylaxis while inpatient [facility] at discharge Total Time Total Time Spent Total Time Spent (In Minutes): 65 Discharge Plan Discharge Items Patient Disposition: Transfer Inpatient Rehab Fac Reason For Visit: FALL, BROKEN HUMERUS, MS WEAKNESS Discharge Diagnosis: Left Humerus Fracture, Possible developing diverticulitis Weakness, Hypothyroidism, B12 deficiency Goals: You have been hospitalized for an acute medical problem. During your stay at [facility], we have made an effort to correct the problem that brought you to the hospital while keeping you as comfortable as possible. Medications were used to bring your condition under control and your discharge instructions will include directions for any medications you should take after leaving the hospital. Please make sure you see your Primary Care Provider as part of your follow up plan. Activity: As commented below Activity Comment: advance as tolerated with therapy. keep L arm in sling Non-emergency contact: Primary Care Provider and Specialist Call non-emergency contact if: you have any medication questions, your symptoms worsen, your pain is not controlled and you have a fever Follow-up/Referrals: Agustin Delgado MD [Primary Care Provider] - 07/01/21 2:00 pm Serafin Beaver MD [Physician] - (1-2 weeks) Diet: Heart Healthy Addtl Attending Provider Instructions: You have been hospitalized with weakness and a fall. Finding on imaging show a left humerus fracture. Your vitamin D level was checked and was low. Unfortunately you are already on 50,000 units weekly and will need to have follow up with your primary care about possible injections in the future to help with bone health. Orthopedics was consulted, Dr Beaver, and recommendations are for simple sling without need for surgery. You may remove this for showering/bathing/dressing but should keep on at all other times. You will need follow up in the next 1-2 weeks for repeat imaging and to monitor progress. Continue ice, sling, elevation. Continue tylenol three times daily for baseline control and will have oxycodone 5mg - 10mg to use based on pain. Please utilize 5mg for pain <7/10 and can use 10mg for pain >7/10. Continue bowel regimen while on this if no BM in 1-2 days to prevent constipation. You can continue topical lidocaine patch and voltaren gel as needs for additional control. Abdominal imaging showed a possible developing diverticulitis and were started on Augmentin which will be continued to complete 10 day course. Your thyroid function was checked given increased mental fog/confusion as noted in past Neurology office visit. This was elevated and indicated undertreatment and your Synthroid has been increased to 88mcg daily and will need to have repeat testing in 6 weeks outpatient for further adjustments as needed. Your B12 was also checked and borderline low, especially in your age group, and you have been started on and should continue B12 supplementation. This will also help with cognition/memory as well as numbness/tingling/neuropathy. Please follow up with your PCP and orthopedics in the next 1-2 weeks to monitor your progress. You have been set up for rehab at discharge through [facility]. Please return to the emergency department with any fever, chills, chest pain, shortness of breath, abdominal pain or for any other symptoms that are concerning for you.. It has been a pleasure being a part of the medical team providing for you while you have been in the hospital. Take care! Pending Studies at Discharge: No Stand-Alone Forms: My [facility] Skilled Items Patient informed of condition?: Yes DNR: Yes Discharge Level of Care: Acute rehab Communicable Disease: No Discharge Prognosis: Stable Lines: None Urinary Catheter: No Medications and DC Order Prescriptions: New amoxicillin-pot clavulanate [Augmentin] 875-125 mg Tablet 1 tab PO BIDM Qty: 13 RF: 0 oxycodone 5 mg Tablet 5 mg PO Q4H PRN (Reason: pain) Qty: 10 RF: 0 diclofenac sodium [Voltaren Arthritis Pain] 1 % Gel 2 g EXT BID 7 Days Qty: 100 RF: 0 polyethylene glycol 3350 [Miralax] 17 gram Powder In Packet 17 g PO DAILY PRN (Reason: constipation) Qty: 14 RF: 0 sennosides-docusate sodium [Senokot-S] 8.6-50 mg Tablet 1 tab PO HS Qty: 7 RF: 0 levothyroxine [Synthroid] 88 mcg Tablet 88 mcg PO DAILYBB Qty: 30 RF: 0 cyanocobalamin (vitamin B-12) 500 mcg Tablet 1,000 mcg PO QAM Qty: 30 RF: 0 lidocaine 5 % Adhesive Patch,Medicated 1 patch transdermal QAM Qty: 1 RF: 0 Continued cetirizine 10 mg tablet 10 mg PO DAILY PRN (Reason: allergy symptoms) Qty: 90 RF: 1 oxybutynin chloride 10 mg tablet extended release 24hr 10 mg PO DAILY Qty: 90 RF: 1 Hold Instructions: no longer takes duloxetine 30 mg capsule,delayed release(DR/EC) 30 mg PO QPM Qty: 90 RF: 3 multivitamin [Daily Multi-Vitamin] tablet 1 tab PO QAM RF: 0 ascorbic acid (vitamin C) 500 mg capsule 500 mg PO DAILY RF: 0 cholecalciferol (vitamin D3) 1,250 mcg (50,000 unit) capsule 50,000 units PO WEEKLY Qty: 12 RF: 3 albuterol sulfate [Proventil HFA] 90 mcg/actuation HFA aerosol inhaler 1 puffs INH Q6H PRN (Reason: shortness of breath or wheezing) Qty: 8.5 RF: 0 Discontinued levothyroxine 75 mcg tablet 75 mcg PO DAILY RF: 0 Discharge Orders: Discharge Order (Routine); Ordered 06/13/21 Ordered By: Mica Pearson Admission Data Admit Date/Time: 06/09/21 20:08 Attending Provider: Markie Herrera Admit Provider: Sarah Melendrez Primary Care Provider: Agustin Delgado V. Other Providers: Serafin Beaver ; Sarah Melendrez ; [facility] Other Interventions: Discharge Summary Assessment (RN) Last Done: 06/13/21 14:23 Coding Level of Care Code D/C DAY MANAGEMENT >30 MINS Diagnoses Fracture, humerus S42.309A Encounter type: initial encounter Fracture alignment: nondisplaced Fracture type: closed Humerus Location: proximal Laterality: unspecified laterality Diverticulitis K57.92 Multiple sclerosis G35 Peripheral neuropathy G62.9 Vitamin D deficiency disease E55.9 Hypothyroidism E03.9 Gait disturbance R26.9 Depression with anxiety F41.8 Asthma J45.909 Anemia D64.9
[2021-06-13 14:10] VITALS: PULSE 83
[2021-06-14] MEDS ORDERED: NON-FORMULARY MEDICATION (Cholecalciferol (Vitamin D3) 1,250 mcg (50,000 unit) capsule) PO SCH (09:00)
== END 2021-06-13 14:36 | DRG 543 ==
LOC: ED 14:49 → SUATTDRO 20:08 → 3N 20:08

== ENCOUNTER 2021-12-08 03:26 | Inpatient (IN) ==
[2021-12-08] MEDS ORDERED: OPTIRAY 320 125ml IV ONE (03:51)
[2021-12-08 03:55] LABS: Basophils # (auto) 0.02 K/uL (0-0.2); Basophils % (auto) 0.3 %; Eosinophils # (auto) 0.21 K/uL (0-0.5); Eosinophils % (auto) 2.9 %; Hematocrit (blood only) 37.1 % (37-47); Hemoglobin 12.6 g/dL (12.0-16.0); Immature Granulocytes # (auto) 0.01 K/uL (0.00-0.02); Immature Granulocytes % (auto) 0.1 %; Lymphocytes # (auto) 1.53 K/uL (1.2-3.4); Lymphocytes % (auto) 21.2 %; Mean Corpuscular Hemoglobin 31.5 pg (25-34); Mean Corpuscular Volume 92.8 fL (80-100); Mean Platelet Volume 9.5 fL (7.4-10.4); Monocytes # (auto) 0.44 K/uL (0.11-0.59); Monocytes % (auto) 6.1 %; Neutrophils # (auto) 5.01 K/uL (1.4-6.5); Neutrophils % (auto) 69.4 %; Platelet Count 249 K/uL (130-400); RDW Coefficient of Variation 13.6 % (11.5-14.5); RDW Standard Deviation 46.2 fL (36.4-46.3); White Blood Count 7.22 K/uL (4.8-10.8)
[2021-12-08 04:06] LABS: Partial Thromboplastin Ratio 0.9; Partial Thromboplastin Time 25.7 Seconds (21.0-31.0); Prothrombin Time 10.7 Seconds (9.0-12.0)
--- NOTE | 2021-12-08 04:10 | Emergency Department Note ---
Impression & Plan Acute CVA (cerebrovascular accident) Admit to the [facility] ED Provider Note NAME: CURTIS BERRIOS AGE: 81 SEX: F ARRIVES VIA: Ambulance INFORMANT: EMS ED PROVIDER(S): Heather Douglas DO CHIEF COMPLAINT: Stroke PLAN: Disposition: Admit to the [facility] service Condition: Guarded MEDICAL DECISION MAKING: This is AN 81-year-old male patient presents to the emergency department with stroke symptoms. The patient's last known well time was 11 PM when she went to bed. Her woke up to her yelling for him and found her on the floor with right-sided hemiparesis and difficulty speaking. The patient's neurological symptoms seem to be waxing and waning. We did [place] telestroke with the patient and she was not a candidate for TPA or a focused neurological procedure at [place] so she will stay here and have expectant management. [facility]. Triage Nursing notes reviewed and agree with them. Additional history obtained from EMS and the Prior medical records reviewed Vital Signs: reviewed and remarkable for hypertension Differential diagnosis: Acute TIA, hypoglycemia, head injury, hemorrhagic CVA, ischemic stroke ER treatment provided: IV normal saline Diagnostics interpreted by me: ECG: Normal sinus rhythm at a rate of [address] segment elevation or signs of ischemia Cardiac Monitoring: Sinus rhythm at 89 Laboratory studies: See below Imaging studies: CT HEAD: Comparison: MRI head 06/25/14 No acute intracranial hemorrhage or mass effect. No CT evidence of acute transcortical infarct. White matter hypoden sities, most likely representing chronic small vessel ischemic changes. Global cerebral volume loss. Prominent perivascular spaces at basal ganglia. Radiologist: Aleksandr Telles MD CTA HEAD: No evidence of large vessel occlusion. Severe stenosis of right posterior cerebral artery P2 segment distally. Moderate stenosis of left posterior cerebral artery P2 segment proximally. Moderate stenoses of left anterior cerebral artery A2 segment and. [id number] stenosis of right middle cerebral artery. Mild stenosis of basilar artery. CTA NECK: No evidence of vascular occlusion, dissection, or hemodynamically significant stenosis. Atherosclerotic plaque of the carotid bifurcations without hemodynamically significant stenosis. Consultation(s): Dr. Armando Sears telestroke HPI: 81/F arrives for evaluation of stroke symptoms. The patient went to bed around 11 PM in her usual state of health. Her woke to hear her yelling out for him. He found her on the floor in the kitchen unable to move her right arm and leg and having difficulty with speech. EMS was called. When they evaluated her, she had right-sided hemiparesis and expressive aphasia. She had obvious right-sided facial droop. To the hospital, the patient's neurological symptoms seem to significantly improve. She was able to lift her right leg off of the stretcher and was having improved movement of her right arm and the right-sided facial droop seemed to improve. ROS: See above HPI for pertinent positives & negatives. A total of 10 systems reviewed and were otherwise negative. PAST MEDICAL HISTORY:See Below PAST SURGICAL HISTORY:See Below FAMILY HISTORY:See Below SOCIAL HISTORY:See Below HOME MEDICATIONS:See list ALLERGIES:See list VITALS:See Below PHYSICAL EXAMINATION: HEENT: Head - normocephalic and atraumatic. Pupils are equal, round, and reactive to light. Extraocular eye muscles are intact and sclera are anicteric. Ears - bilaterally patent canals with noninjected tympanic membranes and no evidence of hemotympanum. Nose - moist nasal mucosa without discharge. Mouth - moist buccal mucosa. Oropharynx is nonerythematous and there is no tonsillar exudate or edema noted. Neck: Supple; no JVD, nuchal rigidity, cervical lymphadenopathy, or auscultated bruits. Heart: Regular rate and rhythm. There is a normal S1 and S2 with no murmurs, clicks, or gallops appreciated. Lungs: Clear to auscultation bilaterally with no wheezes, rales, or rhonchi. Abdomen: Soft, completely nontender, nondistended, with good bowel sounds. There are no palpable pulsatile masses or hepatosplenomegaly. There is no guarding, rigidity, or rebound noted. Extremities: No evidence of cyanosis, clubbing, or edema. There are easily palpable peripheral pulses. Neuro:The patient is awake and alert, oriented to day, time, and place. Muscle strength is 5/5 in all 4 extremities. The patient has equal armature bander strength and equal pedal push and pull. There are no cerebellar signs. ED COURSE: Times/Reassessments: 0330 the patient was a stroke alert from the field and went directly to neurology for CT scan of the brain and CTA of the head and neck. On evaluation in room A1, an order was placed for continuous cardiac monitoring. The patient was in a normal sinus rhythm at a rate of 89. A twelve-lead EKG was obtained. Laboratory studies were drawn as above. Dr. Roberts from [facility] was contacted and he complete assessment of the patient. The patient's neurological exam was waxing and waning. The patient's abreast of the situation. I discussed the case with the [facility] hospitalist. The patient received IV normal saline solution as well as rectal aspirin. I have personally spent greater than 60 minutes of critical care time in the direct management of this patient. This includes bedside care, interpretation of diagnostic studies, and testing, discussion with consultants, patient, and family members, and other required patient management activities. This 60 minutes is in excess of all separately billable procedures. Heather Douglas, Past Med/Surg History Medical History Actinic keratosis Allergic rhinitis Asthma Bee sting Chest pain Cholelithiasis Depression with anxiety Diverticulitis Facial swelling Gait disturbance Hypothyroidism Lumbar canal stenosis Multiple sclerosis Multiple sclerosis Osteopenia Peripheral neuropathy Vitamin D deficiency disease Surgical History No pertinent past surgical history Family History Father Lung cancer Mother Brain cancer Grandmother Stroke Denies family history of Ovarian cancer Prostate cancer Myocardial infarction Breast cancer Colorectal cancer Social History Smoking Status: Never smoker Second Hand Exposure: Yes; Hx Alcohol Use: Yes Alcohol type: wine Hx Substance Use: No Preferred Language: Croatian Communication Ability: Effective Visual Impairment: Partially Limited Hearing Ability: Normal 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 Beliefs That Will Affect Care: None marital status: Current Living Situation: Spouse current occupational status: retired How many Children do You have: 3 How many Children do You have Comment: 3 boys Other Information That Helps Us Care for You: No Feels Safe at Home: Yes Safety Concerns: Feels Safe At This Time Childhood Exposure to Second-Hand Smoke: No during the past year weight has: remained stable Dental Care, Regularly: Yes Physical Activity Frequency: 3-4 Times per Week Seatbelt Use: always Sunscreen Use: Yes Assistive Devices: Walker Allergies Allergies Allergy/AdvReac Type Severity Reaction Status Date / Time animal dander Allergy Intermediate SNEEZING, Verified 07/22/21 12:52 CONGESTION gluten Allergy Intermediate GLUTEN Verified 07/22/21 12:52 INTOLERANT-GI UPSET ibuprofen Allergy Mild ? UNKNOWN Verified 07/22/21 12:52 - "SO LONG AGO" Sulfa (Sulfonamide Allergy Unknown DIARRHEA Verified 07/22/21 12:52 Antibiotics) donepezil AdvReac Intermediate nightmares Verified 07/22/21 12:52 lactase [From Dairy Aid] AdvReac Intermediate Gastrointestinal Verified 07/22/21 12:52 Upset baclofen AdvReac Unknown CAN'T Verified 07/22/21 12:52 REMEMBER chocolate flavor AdvReac Unknown CAN'T Verified 07/22/21 12:52 REMEMBER lactose AdvReac Unknown Gastrointestinal Verified 07/22/21 12:52 Upset peanut AdvReac Unknown Gastrointestinal Verified 07/22/21 12:52 Upset sulfabenzamide AdvReac Unknown CAN'T Verified 07/22/21 12:52 REMEMBER sulfamethoxazole AdvReac Unknown CAN'T Verified 07/22/21 12:52 [From Bactrim] REMEMBER trimethoprim [From Bactrim] AdvReac Unknown CAN'T Verified 07/22/21 12:52 REMEMBER Home Meds Home Medications Medication Instructions Recorded Confirmed multivitamin (Daily Multi-Vitamin) 1 tab PO QAM 04/06/19 07/22/21 ascorbic acid (vitamin C) 500 mg 500 mg PO DAILY cap 04/19/19 07/22/21 capsule Previous Rx's Medication Instructions Recorded cetirizine 10 mg tablet 10 mg PO DAILY PRN #90 tab 06/14/19 albuterol sulfate 90 mcg/actuation 1 puffs INH Q6H PRN #8.5 gm 08/31/19 aerosol inhaler (Proventil HFA) oxybutynin chloride 10 mg 10 mg PO DAILY #90 tab 01/15/20 tablet,extended release 24 hr lidocaine 5 % topical patch 1 patch TRANSDERMAL QAM #1 ea 06/13/21 polyethylene glycol 3350 17 gram 17 g PO DAILY PRN #14 ea 06/13/21 oral powder packet (Miralax) sennosides 8.6 mg-docusate sodium 1 tab PO HS #7 tab 06/13/21 50 mg tablet (Senokot-S) levothyroxine 88 mcg tablet 88 mcg PO DAILYBB #90 tab 08/11/21 (Synthroid) duloxetine 30 mg capsule,delayed 30 mg PO QPM #90 cap 08/12/21 release Results & Data (ED) Vital Signs Vital Signs - 24 hr 12/08/21 03:30 12/08/21 03:53 12/08/21 03:54 Temperature 37 C Temperature Source Oral Pulse Rate 98 H 105 H Pulse Rate from SpO2 Sensor 104 H Respiratory Rate 14 19 Respiratory Effort / Characteristics Non-Labored Spontaneous Respiratory Depth Normal Blood Pressure 207/121 H 207/121 H Blood Pressure Mean 149 149 Pulse Oximetry 98 99 Oxygen Delivery Method Room Air Sepsis Recent Fever Within 48 Hours No Sepsis New/Unexplained Change in Mental Status No Sepsis Action Taken by Nursing No Action Required 12/08/21 04:00 12/08/21 04:01 Temperature Temperature Source Pulse Rate 94 H 107 H Pulse Rate from SpO2 Sensor 94 H 106 H Respiratory Rate 19 23 Respiratory Effort / Characteristics Respiratory Depth Blood Pressure 183/118 H Blood Pressure Mean 139 Pulse Oximetry 98 99 Oxygen Delivery Method Sepsis Recent Fever Within 48 Hours Sepsis New/Unexplained Change in Mental Status Sepsis Action Taken by Nursing Laboratory Data Result diagrams: 12/08/21 03:45 12/08/21 03:45 Lab Results 12/08/21 12/08/21 12/08/21 Range/Units 03:15 03:15 03:15 WBC (4.8-10.8) K/uL RBC (4.2-5.4) M/uL Hgb (12.0-16.0) g/dL Hct (37-47) % MCV (80-100) fL MCH (25-34) pg MCHC (32-36) g/dL RDW Std Deviation (36.4-46.3) fL RDW Coeff of Kelsie (11.5-14.5) % Plt Count (130-400) K/uL MPV (7.4-10.4) fL Immature Gran % (Auto) % Neut % (Auto) % Lymph % (Auto) % [place] % (Auto) % Eos % (Auto) % Baso % (Auto) % Neut # (Auto) (1.4-6.5) K/uL Lymph # (Auto) (1.2-3.4) K/uL [place] # (Auto) (0.11-0.59) K/uL Eos # (Auto) (0-0.5) K/uL Baso # (Auto) (0-0.2) K/uL Immature Gran # (Auto) (0.00-0.02) K/uL PT (9.0-12.0) Seconds INR (0.9-1.1) APTT (21.0-31.0) Seconds PTT Ratio Sodium (136-145) mmol/L Potassium (3.5-5.1) mmol/L Chloride (98-107) mmol/L Carbon Dioxide (21-32) mmol/L Anion Gap (3-11) BUN (6-23) mg/dl Creatinine (0.6-1.2) mg/dl Est Cr Clr Drug Dosing ml/min Est GFR ( Amer) ml/min Est GFR (Non-Af Amer) ml/min BUN/Creatinine Ratio (10-20) Glucose (70-99(Fasting)) mg/dl POC Glucose (70-99) mg/dl Estimat Average Glucose 108 mg/dl Hemoglobin A1c 5.4 (4.5-5.6) % Calcium (8.5-10.1) mg/dl Magnesium (1.7-2.4) mg/dl Total Bilirubin (0.2-1.0) mg/dl AST (13-39) U/L ALT (7-52) U/L Alkaline Phosphatase (34-104) U/L Troponin I (0-0.04) ng/ml Total Protein (6.0-8.3) gm/dl Albumin (3.4-5.0) gm/dl Globulin (2.5-4.0) gm/dl Albumin/Globulin Ratio (0.9-2) Triglycerides 108 (0-150) mg/dl Cholesterol 161 (0-200) mg/dl LDL Cholesterol, Calc 98 mg/dl VLDL Cholesterol, Calc 22 (0-30) mg/dl HDL Cholesterol 41 mg/dl Cholesterol/HDL Ratio 3.9 (0-5) TSH 2.119 (0.300-4.500) uIu/ml Blood Type Antibody Screen 12/08/21 12/08/21 12/08/21 Range/Units 03:45 03:45 03:45 WBC 7.22 (4.8-10.8) K/uL RBC 4.00 L (4.2-5.4) M/uL Hgb 12.6 (12.0-16.0) g/dL Hct 37.1 (37-47) % MCV 92.8 (80-100) fL MCH 31.5 (25-34) pg MCHC 34.0 (32-36) g/dL RDW Std Deviation 46.2 (36.4-46.3) fL RDW Coeff of Kelsie 13.6 (11.5-14.5) % Plt Count 249 (130-400) K/uL MPV 9.5 (7.4-10.4) fL Immature Gran % (Auto) 0.1 % Neut % (Auto) 69.4 % Lymph % (Auto) 21.2 % [place] % (Auto) 6.1 % Eos % (Auto) 2.9 % Baso % (Auto) 0.3 % Neut # (Auto) 5.01 (1.4-6.5) K/uL Lymph # (Auto) 1.53 (1.2-3.4) K/uL [place] # (Auto) 0.44 (0.11-0.59) K/uL Eos # (Auto) 0.21 (0-0.5) K/uL Baso # (Auto) 0.02 (0-0.2) K/uL Immature Gran # (Auto) 0.01 (0.00-0.02) K/uL PT 10.7 (9.0-12.0) Seconds INR 1.0 (0.9-1.1) APTT 25.7 (21.0-31.0) Seconds PTT Ratio 0.9 Sodium (136-145) mmol/L Potassium (3.5-5.1) mmol/L Chloride (98-107) mmol/L Carbon Dioxide (21-32) mmol/L Anion Gap (3-11) BUN (6-23) mg/dl Creatinine (0.6-1.2) mg/dl Est Cr Clr Drug Dosing ml/min Est GFR ( Amer) ml/min Est GFR (Non-Af Amer) ml/min BUN/Creatinine Ratio (10-20) Glucose (70-99(Fasting)) mg/dl POC Glucose (70-99) mg/dl Estimat Average Glucose mg/dl Hemoglobin A1c (4.5-5.6) % Calcium (8.5-10.1) mg/dl Magnesium (1.7-2.4) mg/dl Total Bilirubin (0.2-1.0) mg/dl AST (13-39) U/L ALT (7-52) U/L Alkaline Phosphatase (34-104) U/L Troponin I (0-0.04) ng/ml Total Protein (6.0-8.3) gm/dl Albumin (3.4-5.0) gm/dl Globulin (2.5-4.0) gm/dl Albumin/Globulin Ratio (0.9-2) Triglycerides (0-150) mg/dl Cholesterol (0-200) mg/dl LDL Cholesterol, Calc mg/dl VLDL Cholesterol, Calc (0-30) mg/dl HDL Cholesterol mg/dl Cholesterol/HDL Ratio (0-5) TSH (0.300-4.500) uIu/ml Blood Type A Positive Antibody Screen NEGATIVE 12/08/21 12/08/21 Range/Units 03:45 03:48 WBC (4.8-10.8) K/uL RBC (4.2-5.4) M/uL Hgb (12.0-16.0) g/dL Hct (37-47) % MCV (80-100) fL MCH (25-34) pg MCHC (32-36) g/dL RDW Std Deviation (36.4-46.3) fL RDW Coeff of Kelsie (11.5-14.5) % Plt Count (130-400) K/uL MPV (7.4-10.4) fL Immature Gran % (Auto) % Neut % (Auto) % Lymph % (Auto) % [place] % (Auto) % Eos % (Auto) % Baso % (Auto) % Neut # (Auto) (1.4-6.5) K/uL Lymph # (Auto) (1.2-3.4) K/uL [place] # (Auto) (0.11-0.59) K/uL Eos # (Auto) (0-0.5) K/uL Baso # (Auto) (0-0.2) K/uL Immature Gran # (Auto) (0.00-0.02) K/uL PT (9.0-12.0) Seconds INR (0.9-1.1) APTT (21.0-31.0) Seconds PTT Ratio Sodium 132 L (136-145) mmol/L Potassium 3.9 (3.5-5.1) mmol/L Chloride 103 (98-107) mmol/L Carbon Dioxide 24 (21-32) mmol/L Anion Gap 5 (3-11) BUN 19 (6-23) mg/dl Creatinine 0.74 (0.6-1.2) mg/dl Est Cr Clr Drug Dosing 50.6 ml/min Est GFR ( Amer) 87.4 ml/min Est GFR (Non-Af Amer) 75.4 ml/min BUN/Creatinine Ratio 25.7 H (10-20) Glucose 111 H (70-99(Fasting)) mg/dl POC Glucose 111 H (70-99) mg/dl Estimat Average Glucose mg/dl Hemoglobin A1c (4.5-5.6) % Calcium 8.4 L (8.5-10.1) mg/dl Magnesium 1.9 (1.7-2.4) mg/dl Total Bilirubin 0.3 (0.2-1.0) mg/dl AST 12 L (13-39) U/L ALT 11 (7-52) U/L Alkaline Phosphatase 53 (34-104) U/L Troponin I < 0.03 (0-0.04) ng/ml Total Protein 5.7 L (6.0-8.3) gm/dl Albumin 3.6 (3.4-5.0) gm/dl Globulin 2.1 L (2.5-4.0) gm/dl Albumin/Globulin Ratio 1.7 (0.9-2) Triglycerides (0-150) mg/dl Cholesterol (0-200) mg/dl LDL Cholesterol, Calc mg/dl VLDL Cholesterol, Calc (0-30) mg/dl HDL Cholesterol mg/dl Cholesterol/HDL Ratio (0-5) TSH (0.300-4.500) uIu/ml Blood Type Antibody Screen Administered Medications Hydralazine HCl (Hydralazine Hcl 20 Mg/Ml Vial) 10 mg IV Q6H PRN PRN Reason: Hypertension Stop: 01/07/22 05:04 Last Admin: 12/08/21 23:20 Dose: 10 mg Documented by: [id number] Sodium Chloride (Nss) 1,000 mls @ 125 mls/hr IV .Q8H [facility] Stop: 01/07/22 08:50 Last Admin: 12/09/21 00:27 Dose: 125 mls/hr Documented by: [id number] Infusion: 12/08/21 23:13 Dose: 0 mls/hr Documented by: [id number] Admin: 12/08/21 15:13 Dose: 125 mls/hr Documented by: [id number] Infusion: 12/08/21 14:57 Dose: 125 mls/hr Documented by: [id number] Admin: 12/08/21 09:21 Dose: 125 mls/hr Documented by: [id number] Lidocaine (Lidocaine 5% 1 Patch) 1 patch TD QAM [facility] Stop: 01/07/22 08:59 Last Admin: 12/08/21 09:21 Dose: 1 patch Documented by: [id number] Miscellaneous (Remove Lidoderm Patch) 1 ea N/A DAILY@2100 [facility] Stop: 01/07/22 20:59 Last Admin: 12/08/21 20:20 Dose: 1 ea Documented by: [id number] Discontinued Medications Aspirin (Aspirin 300 Mg Supp) 300 mg PA ONE ONE Stop: 12/08/21 04:32 Last Admin: 12/08/21 05:08 Dose: 300 mg Documented by: [id number] Gadobutrol (Gadobutrol 65ml Vial) 5.5 ml IV ONCE ONE Stop: 12/08/21 10:57 Last Admin: 12/08/21 10:56 Dose: 5.5 ml Documented by: [id number] Sodium Chloride (Nss) 500 mls @ 999 mls/hr IV .Q31M ONE Stop: 12/08/21 05:01 Last Admin: 12/08/21 08:39 Dose: Not Given Documented by: [id number] Sodium Chloride (Nss) 500 mls @ 125 mls/hr IV .Q4H [facility] Stop: 01/07/22 04:44 Last Admin: 12/08/21 09:22 Dose: Not Given Documented by: [id number] Infusion: 12/08/21 08:39 Dose: 0 mls/hr Documented by: [id number] Admin: 12/08/21 05:09 Dose: 125 mls/hr Documented by: [id number] Ioversol (Optiray 320 125ml) 125 ml IV ONCE ONE Stop: 12/08/21 03:52 Last Admin: 12/08/21 03:51 Dose: 119 ml Documented by: [id number] Discharge Plan Visit Data Chief Complaint: Stroke Alert Stated Complaint: STROKE SYMPTOMS ED Provider: Heather Douglas Discharge Problem: Acute CVA (cerebrovascular accident) Patient Disposition: Admitted As Inpatient Discharge Instructions Interventions: ED Discharge Assessment Last Done: 12/08/21 06:46
[2021-12-08 04:22] LABS: Troponin I < 0.03 ng/ml (0-0.04)
[2021-12-08 04:23] LABS: Alanine Aminotransferase 11 U/L (7-52); Albumin Globulin Ratio 1.7 (0.9-2); Albumin Level 3.6 gm/dl (3.4-5.0); Alkaline Phosphatase 53 U/L (34-104); Anion Gap 5 (3-11); Aspartate Aminotransferase 12 U/L (13-39); BUN Creatinine Ratio 25.7 (10-20); Bilirubin,Total 0.3 mg/dl (0.2-1.0); Blood Urea Nitrogen 19 mg/dl (6-23); Calcium 8.4 mg/dl (8.5-10.1); Carbon Dioxide 24 mmol/L (21-32); Chloride 103 mmol/L (98-107); Creatinine Clr Calc Pharmacy 50.6 ml/min; Est GFR (African American) 87.4 ml/min; Est GFR (Non-African American) 75.4 ml/min; Globulin 2.1 gm/dl (2.5-4.0); Glucose 111 mg/dl (70-99(Fasting)); Magnesium 1.9 mg/dl (1.7-2.4); Potassium 3.9 mmol/L (3.5-5.1); Sodium 132 mmol/L (136-145); Total Protein 5.7 gm/dl (6.0-8.3)
[2021-12-08] MEDS ORDERED: SODIUM CHLORIDE 0.9% 500 ML IV ONE (04:31)
[2021-12-08] MEDS ORDERED: ASPIRIN 300 MG SUPP PR ONE (04:31)
--- NOTE | 2021-12-08 04:57 | History & Physical Report ---
Date of Service December 08, 2021 Assessment & Plan (1) Neurological symptoms: (2) Multiple sclerosis: (3) Hypothyroidism: (4) Depression with anxiety: (5) Urinary incontinence: (6) Cholelithiasis: (7) Asthma: Plan: Risa Bird is an 81-year-old female with past medical history of multiple sclerosis, hypothyroidism, depression/anxiety, asthma, and urinary incontinence who presented to [facility] due to neurologic symptoms for several hours. Neurological symptoms right sided facial weakness, right-sided arm and leg weakness Symptoms concerning for possibility of stroke, though waxing and waning nature is of unclear significance CT head showing no acute intracranial process, CTA head/neck showing no large vessel occlusion [facility] recommending blood pressure control of SBP under 220 and DBP under 110 Patient given aspirin 300 mg per rectum in ED Started on IVF at 125 cc/h continue MRI brain ordered Lipid profile, A1c ordered Patient failed dysphagia screen n.p.o. until evaluated and cleared by speech therapy PT/OT consult Neuro consult patient has followed with [facility] neurology in the past but no provider extension worker, consulted [facility] neurology Multiple sclerosis History of Has followed with [facility] neurology in the past Per last note, patient off of disease modifying treatment for MS since early 2019 Current symptoms more acute, less likely attributable to MS Hypothyroidism Continue Synthroid when able to p.o. Check TSH Anxiety/depression Continue duloxetine when able to p.o. Asthma Albuterol as needed Allergic rhinitis Continue cetirizine when able to p.o. Urinary incontinence Continue oxybutynin when able to p.o. DVT prophylaxis: SCDs, chemoprophylaxis contraindicated in the setting of possible stroke Diet: N.p.o. until evaluated by speech, NSS at 125 cc/h Dispo: Admit to telemetry CODE STATUS: DNR/DNI History of Present Illness Primary Care Provider: Agustin Delgado MD Risa Bird is an 81-year-old female with past medical history of multiple sclerosis, hypothyroidism, depression/anxiety, asthma, and urinary incontinence who presented to [facility] due to neurologic symptoms for the past few hours. History taken from patient and in the room. Earlier tonight, around 11:30 PM, patient noticed weakness on the right side of her body, especially of the arm and leg. Her states that she had been trying to ambulate in the [place] their home and she fell sideways onto the floor. He rushed to her side to try to help her up and states that the patient was unable to stand on her own. At that point, she had difficulty speaking. Her decided to call EMS at this point. The patient does not have any prior history of the symptoms. Of note, patient has history of chronic MS for which she has followed with [facility] neurology in the past has not followed with them since 2019. She stopped disease modifying treatment in early 2019. She has a history of gait disturbance, however, current symptoms seem to be more acute for her. She does not have an established history of hyperlipidemia, diabetes. Per EMS report and according to ED provider, patient symptoms seem to wax and wane. At varying times she has had right-sided facial droop, right arm, and right leg weakness but these will intermittently disappear after a few minutes and then return. Per ED provider, [facility] telestroke was consulted, and while [facility] provider was speaking to patient her symptoms had resolved. ED provider walked into the room while [place] neurologist was still on the call, and at that point she reassessed the patient and symptoms had returned. Neurologist reiterated that the symptoms were not there at the time of his evaluation. In the ED, patient had CT head negative for acute intracranial process. CTA of head and neck showed no significant large vessel occlusion. See images for stat rad report official read from [facility] radiology pending. [facility] telestroke recommended continuation of IV fluids, blood pressure control to maintain SBP under 220 and DBP under 110, as well as further imaging with brain MRI. Upon my evaluation, patient does continue to have right-sided facial droop, as well as right arm and leg weakness. She is able to communicate appropriately and answer my questions. Her is at bedside and provides supplemental information. She denies chest pain, palpitations, nausea, vomiting, shortness of breath, abdominal pain, headache, vision changes, dizziness at this time. Allergies Allergy/AdvReac Type Severity Reaction Status Date / Time animal dander Allergy Intermediate SNEEZING, Verified 07/22/21 12:52 CONGESTION gluten Allergy Intermediate GLUTEN Verified 07/22/21 12:52 INTOLERANT-GI UPSET ibuprofen Allergy Mild ? UNKNOWN Verified 07/22/21 12:52 - "SO LONG AGO" Sulfa (Sulfonamide Allergy Unknown DIARRHEA Verified 07/22/21 12:52 Antibiotics) donepezil AdvReac Intermediate nightmares Verified 07/22/21 12:52 lactase [From Dairy Aid] AdvReac Intermediate Gastrointestinal Verified 07/22/21 12:52 Upset baclofen AdvReac Unknown CAN'T Verified 07/22/21 12:52 REMEMBER chocolate flavor AdvReac Unknown CAN'T Verified 07/22/21 12:52 REMEMBER lactose AdvReac Unknown Gastrointestinal Verified 07/22/21 12:52 Upset peanut AdvReac Unknown Gastrointestinal Verified 07/22/21 12:52 Upset sulfabenzamide AdvReac Unknown CAN'T Verified 07/22/21 12:52 REMEMBER sulfamethoxazole AdvReac Unknown CAN'T Verified 07/22/21 12:52 [From Bactrim] REMEMBER trimethoprim [From Bactrim] AdvReac Unknown CAN'T Verified 07/22/21 12:52 REMEMBER Home Medications Medication Instructions Recorded Confirmed Type multivitamin (Daily Multi-Vitamin) 1 tab PO QAM 04/06/19 07/22/21 History ascorbic acid (vitamin C) 500 mg 500 mg PO DAILY cap 04/19/19 07/22/21 History capsule cetirizine 10 mg tablet 10 mg PO DAILY PRN #90 tab 06/14/19 07/22/21 Rx albuterol sulfate 90 mcg/actuation 1 puffs INH Q6H PRN #8.5 gm 08/31/19 07/22/21 Rx aerosol inhaler (Proventil HFA) oxybutynin chloride 10 mg 10 mg PO DAILY #90 tab 01/15/20 07/22/21 Rx tablet,extended release 24 hr lidocaine 5 % topical patch 1 patch TRANSDERMAL QAM #1 ea 06/13/21 07/22/21 Rx polyethylene glycol 3350 17 gram 17 g PO DAILY PRN #14 ea 06/13/21 07/22/21 Rx oral powder packet (Miralax) sennosides 8.6 mg-docusate sodium 1 tab PO HS #7 tab 06/13/21 07/22/21 Rx 50 mg tablet (Senokot-S) levothyroxine 88 mcg tablet 88 mcg PO DAILYBB #90 tab 08/11/21 Rx (Synthroid) duloxetine 30 mg capsule,delayed 30 mg PO QPM #90 cap 08/12/21 Rx release Past Med/Surg History Medical History (Updated 12/08/21 @ 05:36 by Rickie Cavazos MD) Actinic keratosis Allergic rhinitis Asthma Bee sting Chest pain Cholelithiasis Depression with anxiety Diverticulitis Facial swelling Gait disturbance Hypothyroidism Lumbar canal stenosis Multiple sclerosis Multiple sclerosis Osteopenia Peripheral neuropathy Vitamin D deficiency disease Surgical History No pertinent past surgical history Family History Father Lung cancer Mother Brain cancer Grandmother Stroke Denies family history of Ovarian cancer Prostate cancer Myocardial infarction Breast cancer Colorectal cancer Social History Smoking Status: Never smoker Second Hand Exposure: Yes; Hx Alcohol Use: Yes Alcohol type: wine Hx Substance Use: No Preferred Language: Irish Communication Ability: Effective Visual Impairment: Partially Limited Hearing Ability: Normal Nuclear Instructor Required: No Beliefs That Will Affect Care: None marital status: Current Living Situation: Spouse current occupational status: retired How many Children do You have: 3 How many Children do You have Comment: 3 boys Feels Safe at Home: Yes Childhood Exposure to Second-Hand Smoke: No during the past year weight has: remained stable Dental Care, Regularly: Yes Physical Activity Frequency: 3-4 Times per Week Seatbelt Use: always Sunscreen Use: Yes Assistive Devices: Denture - Upper, Denture - Lower and Glasses Review of Systems Review of Systems: All systems reviewed & are unremarkable except as noted in HPI & below Physical Exam Physical Exam: GENERAL: A&Ox3. NAD. HEENT: PERRL, EOMI. Moist mucous membranes. NECK: No JVD. No lymphadenopathy. CHEST/LUNGS: CTAB A/P. No crackles, wheezes, rales, rhonchi. HEART: RRR. No m/g/r. No carotid bruits. ABDOMEN: NT/ND, soft. BS+ x4 EXTREMITIES: No cyanosis, no clubbing, no edema SKIN: Warm and dry. No rashes or lesions. PSYCHIATRIC: Euthymic affect, no SI, no pressured speech, no hallucinations NEUROLOGIC: Speech impaired due to right-sided facial droop. Patient is unable to move right arm, able to move right leg but weak when compared to her left leg. Left arm with full ROM. She is able to answer questions appropriately. Results & Data Results & Data ([facility]) Vital Signs (Past 12 Hours) Vital Signs Temp Pulse Resp BP Pulse Ox 12/08/21 04:01 107 H 23 183/118 H 99 12/08/21 04:00 94 H 19 98 12/08/21 03:54 105 H 19 99 12/08/21 03:53 207/121 H 12/08/21 03:30 37 C 98 H 14 207/121 H 98 Resident Activity Tracking Resident Involvement: Resident Care Provided Care Provided: Adult Hospital Medicine
[2021-12-08] MEDS ORDERED: hydrALAZINE HCL 20 MG/ML VIAL IV PRN (05:05)
[2021-12-08] MEDS: SODIUM CHLORIDE 0.9% 500 ML IV SCH ×2 (05:09→09:22)
[2021-12-08] MEDS ORDERED: PHARMACIST DISCHARGE MED REC CONSULT PRN (06:32)
--- NOTE | 2021-12-08 07:24 | CT Scan Report ---
CT head/brain wo con CLINICAL HISTORY: Stroke Like Symptoms . Right-sided weakness and headache COMPARISON STUDY: 06/09/2021 CT DOSE: TECHNIQUE: Standard CT of the Brain was performed without IV contrast. A dose lowering technique was utilized adhering to the principles of ALARA. FINDINGS: Extraaxial space: There is no evidence for subdural hematoma. There are no extra-axial fluid collecti ons. Ventricles and cisterns: The ventricles are mildly dilated bilaterally. There is no evidence for midl ine shift or mass effect. Parenchyma: There is no subarachnoid or intraparenchymal hemorrhage. There is no evidence for an acut e infarct or cerebral edema. Old lacunar infarcts are seen involving the periventricular white matter . There is mild cerebral cortical atrophy and decreased attenuation in the periventricular white leslie er representing remote small vessel disease. There are no gross mass lesions. Osseous structures: There is no evidence for an acute fracture. The visualized paranasal sinuses are clear. The mastoid air cells are clear bilaterally. Soft tissues: There is no evidence for focal soft tissue swelling. IMPRESSION: 1. No acute intracerebral pathology. 2. Cerebral cortical atrophy, remote small vessel disease and old lacunar infarcts are again seen. ACT 112: Negative or not required by law. Electronically signed by: Phoenix Brewer M.D. 12/08/2021 7:22 AM
--- NOTE | 2021-12-08 07:25 | CT Scan Report ---
HEAD CTA HISTORY: Right-sided weakness. Facial droop. Stroke Like Symptoms TECHNIQUE: Multiaxial CT images of the head were performed both before and after the intravenous admi nistration of contrast to evaluate the major cerebral vessels. Maximum intensity projection images we re also obtained. A dose lowering technique was utilized adhering to the principles of ALARA. COMPARISON: Head CT 06/09/2021. FINDINGS: There is no mass, hematoma, midline shift, or acute infarct. Mild multifocal narrowing with in the distal basilar artery. Moderate calcified plaque within the intracranial internal carotid hannah demian without significant stenosis. Severely hypoplastic right A1 segment. Moderate multifocal narrowi ng of the left anterior cerebral artery at the A2 segment. Mild to moderate multifocal narrowing with in the right MCA. No severe stenosis within the left MCA. Severe stenosis of the right posterior cere bral artery at the P2 segment distally. Moderate stenosis of the left posterior cerebral artery at th e P2 segment proximally. IMPRESSION: Multifocal areas of narrowing within the cerebral arteries and basilar artery as described above. No evidence for occlusion or aneurysm. ACT 112: Negative or not required by law. Electronically signed by: Seth Sanchez M.D. 12/08/2021 7:23 AM
--- NOTE | 2021-12-08 07:32 | CT Scan Report ---
CT angio neck with con CLINICAL HISTORY: Stroke Like Symptoms . Right-sided weakness and headache. Facial droop COMPARISON STUDY: No previous studies for comparison. CT DOSE: TECHNIQUE: CT Angio of the neck was performed.followed by image post processing with coronal, and sa gittal MIP reformats.. Stenosis assessment by NASCET criteria. Contrast Volume: Optiray 320, 119 ml FINDINGS: Vascular findings: Right common carotid artery: Patent without significant stenosis. There is mild atherosclerotic calci fication at the carotid bulb. Right internal carotid artery: Patent without significant stenosis.There is mild atherosclerotic calc ification at the origin of the ICA. Right vertebral artery: Patent without significant stenosis. Left common carotid artery: Patent without significant stenosis. There is mild atherosclerotic calcif ication at the carotid bulb. Left internal carotid artery: Patent without significant stenosis.There is mild atherosclerotic calci fication at the origin of the ICA. Left vertebral artery: Patent without significant stenosis. The left vertebral artery slightly domina nt when compared to the right. Nonvascular findings: The parotid and submandibular salivary glands appear normal. There is no enlarged cervical adenopathy noted. The airway appears patent. The thyroid gland appears within normal limits. Mild centrilobular emphysematous changes are seen at the lung apices.. Impression: Essentially negative CT angiogram of the neck with contrast. ACT 112: Negative or not required by law. Electronically signed by: Phoenix Brewer M.D. 12/08/2021 7:31 AM
[2021-12-08 07:48] LABS: Chol HDL Ratio 3.9 (0-5)
--- NOTE | 2021-12-08 08:39 | Hospitalist Progress Note ---
Date of Service December 08, 2021 Assessment & Plan (1) Neurological symptoms: (2) Multiple sclerosis: (3) Hypothyroidism: (4) Depression with anxiety: (5) Urinary incontinence: (6) Cholelithiasis: (7) Asthma: Plan: Risa Bird is an 81-year-old female with past medical history of multiple sclerosis, hypothyroidism, depression/anxiety, asthma, and urinary incontinence who presented to [facility] due to neurologic symptoms for several hours. Left Hemispheric CVA Right sided facial weakness, right-sided arm/ leg weakness, productive aphasia, MRI brain showing 2.2cm [id number] infarct centered in left finesse ventricular white matter/basal ganglia. Suspect due to intracranial atherosclerotic disease based on CTA/MRI findings. - CTA head/neck showing no large vessel occlusion - TTE without concern for cardioembolism - LDL <100, A1c 5.4 - Patient given aspirin 300 mg per rectum in ED, continue with Aspirin 81mg PO daily - added Atorvastatin 80mg PO daily - Started on NSS at 125 cc/h - continue for now - permissive HTN with SBP goal 140-180 - Hydralazine PRN ordered for SBP >180 - Neuro consulted - appreciate recs (will likely require DAPT) - minced/moist diet per SET UP OPERATOR TOOL recs - PT/OT consult pending Hyponatremia Na 132, asymptomatic, but with previously normal baseline. Possibly due to dehydration. - continue NSS as stated above - continue to trend Na Multiple sclerosis History of, without disease-modifying treatment since early 2019. MRI brain MS protocol without evidence for flare. - continue to follow with [facility] Neurology as outpatient Hypothyroidism TSH 2.119 on 12/08/2021. - Continue home Synthroid Anxiety/depression Continue duloxetine Asthma Albuterol as needed Allergic rhinitis Continue cetirizine Urinary incontinence Continue oxybutynin DVT ppx: SCDs, chemoppx contraindicated at this time FEN/GI: heart-healthy and minced/moist diet; NSS @125cc/hr Dispo: PCU/tele CODE STATUS: DNR/DNI Admission and Anticipated Discharge Date Admission Date: December 08, 2021 Supervising Physician Co-Signing Physician Notes Attending attestation Pt seen and examined in concert with Dr. Caputo. In agreement with the documented findings as noted in the resident documentation with any exceptions or additions as noted here. Patient resting in bed with stable to mildly improved dysfunctional coordination and weakness of the right upper and lower extremity working presently with OT. On examination, S1/S2 nl RRR no MCG. CTAB. Abd NT/ND BS+ve. 1-/5 of the RUE strength, 1/5 RLE strength on examination. Some speech delay with satisfactory articulation of thought grossly Left periventricular/basal ganglia CVA in the setting of multiple sclerosis - PT/OT, neurology consult - ASA, statin therapy, BP guidelines as noted Else see resident documentation as noted. Subjective This morning patient reports feeling well overall although does admit that she is having difficulty with speech production. Reports that she cannot move her right arm and can only minimally move her right toes. Denies new neurological deficits. Denies fever/chills, chest pain, SOB, N/V, diarrhea, abdominal pain, rash. Review of Systems Review of Systems: All systems reviewed & are unremarkable except as noted in HPI & below Physical Exam Physical Exam: General: A&Ox3. NAD. Cooperative. HEENT: Atraumatic, normocephalic. Pulm: CTAB A&P. -wheezes, -rales, -rhonchi. Symmetrical chest rise. No increase work of breathing. No respiratory distress. Cardiac: RRR, -mrg. Radial pulses intact and symmetrical. No LE edema. Abdominal: soft, non-tender, non-distended, BS x 4 Skin: warm, dry, no rash Neurologic: Speech / Cognition: + expressive aphasia Motor/Sensory: + sensory deficit (decreased sensation in RUE, but sensation intact in face and in LEs) Cranial Nerves: PERRL, normal accommodation, EOM intact bilaterally, normal facial strength (right lower facial droop, forehead muscles intact), tongue midline, normal hearing, able to rotate head bilaterally, able to elevate shoulders bilaterally and no nystagmus Coordination: normal [id number] test Results & Data Results & [facility] ([facility]) Vital Signs (Past 12 Hours) Vital Signs Temp Pulse Pulse Resp BP BP Pulse Ox 12/08/21 06:46 86 20 99 12/08/21 06:42 36.9 C 76 19 187/98 H 96 12/08/21 06:11 80 18 94 12/08/21 05:46 192/116 H 12/08/21 05:26 93 H 20 224/123 H 99 12/08/21 04:01 107 H 23 183/118 H 99 12/08/21 04:00 94 H 19 98 12/08/21 03:54 105 H 19 99 12/08/21 03:53 207/121 H 12/08/21 03:30 37 C 98 H 14 207/121 H 98 Resident Activity Tracking Resident Involvement: Resident Care Provided Care Provided: Adult [facility] Medicine
--- NOTE | 2021-12-08 08:49 | Electrocardiogram Report ---
Test Reason : Blood Pressure : / mmHG Vent. Rate : 086 BPM Atrial Rate : 086 BPM P-R Int : 178 ms QRS Dur : 080 ms QT Int : 386 ms P-R-T Axes : 052 -08 043 degrees QTc Int : 461 ms Poor data quality, interpretation may be adversely affected Normal sinus rhythm Normal ECG When compared with ECG of 09-JUN-2021 15:09, No significant change was found Confirmed by Siddhartha Gee ([id number]) on 12/08/2021 8:49:18 AM Referred By: REFERRED SELF Confirmed By:Hair Gee
[2021-12-08 09:08] LABS: Estimated Average Glucose 108 mg/dl; Hemoglobin A1C 5.4 % (4.5-5.6)
[2021-12-08] MEDS: LIDOCAINE 5% 1 PATCH TD SCH (09:21)
[2021-12-08] MEDS: SODIUM CHLORIDE 0.9% 1,000 ML IV SCH ×2 (09:21→15:13)
--- NOTE | 2021-12-08 09:51 | XCELERA ---
[id number]
--- NOTE | 2021-12-08 10:39 | Neurology Consultation ---
Date of Consultation December 08, 2021 Assessment & Plan (1) Stroke: (2) Multiple sclerosis: I suspect this patient has had a left hemispheric stroke. Her signs and symptoms had apparently fluctuated and temporarily resolve during her stroke assessment in the emergency department. However, this morning, she displays a right lower facial droop, significant right upper extremity weakness, 0 out of 5, and moderate right lower extremity weakness. Her speech is slightly slowed and dysarthric although not aphasic. She also has a right visual field deficit with confrontation testing. She was not given thrombolytics in the emergency department as her symptoms had improved. She has been significantly hypertensive although gradually improving. She was given 300 mg of aspirin MN in the emergency department. No significant vascular lesion identified on CT angiography of the head and neck. Patient's echocardiogram negative for obvious cardioembolic source. Patient will need a gadolinium enhanced brain MRI to further evaluate for acute left hemispheric stroke. The study would also be useful to exclude an MS relapse in light of her history of multiple sclerosis. However, I think an MS relapse would be unlikely given the relative acuity of her symptoms, care and examination findings, advanced age, and apparent stability of her multiple sclerosis for several years. I also considered the possibility of a pseudorelapse in the context of her multiple sclerosis, however, she has never had an episode of right hemiparesis in the past related to her multiple sclerosis, at least as far she can recall. Follow-up with results of MRI. Agree with daily low-dose aspirin and atorvastatin as ordered. Goal LDL less than 70. Permissive hypertension for the time being, systolic blood pressure 140 to 160 mmHg. Going forward, patient will need ongoing evaluation and management of hypertension with her PCP. If patient's MRI is suggestive of an acute symptomatic MS lesion, would consider treatment with corticosteroids. History of Present Illness Reason for Consultation: stroke, h/o MS Requesting Physician: Rickie Cavazos MD Attending Physician: Ash Cazares MD History of Present Illness The patient is an 81-year-old female who presented to the emergency department overnight with a complaint of right-sided weakness that began several hours prior. She had fallen at home and was unable to get up on her own, or with her 's assistance. She was noted to have some difficulty speaking as well and EMS were summoned. Patient was found to have some speech difficulty, right facial droop, and rather significant weakness of the right arm, modest weakness of the right leg. Her presentation was worrisome for stroke, she did have a telestroke consultation with a specialist at [facility], ultimately, it looks like she did not receive TPA, however. Her symptoms apparently resolved during her telestroke consultation. At that point in time, blood pressure control was recommended as she was significantly hypertensive. She is also treated with aspirin MN. However, this morning, patient has a significant right upper extremity weakness, 0 out of 5, with associated right lower facial droop, and modest weakness of the right lower extremity. Her speech is somewhat slow although not grossly aphasic. Past medical history is notable for multiple sclerosis, diagnosed over 30 years ago, has been following with Dr. Torre, [facility] neurology. Patient had been on Avonex for her MS for many years although discontinued this treatment about 2 years ago given lack of disease progression or relapses in quite some time. She does endorse a history of chronic ambulatory dysfunction for which she had been using a cane or a walker. She also has some neurogenic bladder for which she is prescribed oxybutynin. She recalls an episode of vision loss, probably optic neuritis, around the time of her initial MS diagnosis. She believes she made a good visual recovery. She does not recall experiencing episodes of right-sided weakness related to her MS in the past. Allergies Allergy/AdvReac Type Severity Reaction Status Date / Time animal dander Allergy Intermediate SNEEZING, Verified 07/22/21 12:52 CONGESTION gluten Allergy Intermediate GLUTEN Verified 07/22/21 12:52 INTOLERANT-GI UPSET ibuprofen Allergy Mild ? UNKNOWN Verified 07/22/21 12:52 - "SO LONG AGO" Sulfa (Sulfonamide Allergy Unknown DIARRHEA Verified 07/22/21 12:52 Antibiotics) donepezil AdvReac Intermediate nightmares Verified 07/22/21 12:52 lactase [From Dairy Aid] AdvReac Intermediate Gastrointestinal Verified 07/22/21 12:52 Upset baclofen AdvReac Unknown CAN'T Verified 07/22/21 12:52 REMEMBER chocolate flavor AdvReac Unknown CAN'T Verified 07/22/21 12:52 REMEMBER lactose AdvReac Unknown Gastrointestinal Verified 07/22/21 12:52 Upset peanut AdvReac Unknown Gastrointestinal Verified 07/22/21 12:52 Upset sulfabenzamide AdvReac Unknown CAN'T Verified 07/22/21 12:52 REMEMBER sulfamethoxazole AdvReac Unknown CAN'T Verified 07/22/21 12:52 [From Bactrim] REMEMBER trimethoprim [From Bactrim] AdvReac Unknown CAN'T Verified 07/22/21 12:52 REMEMBER Home Medications Medication Instructions Recorded Confirmed Type multivitamin (Daily Multi-Vitamin) 1 tab PO QAM 04/06/19 07/22/21 History ascorbic acid (vitamin C) 500 mg 500 mg PO DAILY cap 04/19/19 07/22/21 History capsule cetirizine 10 mg tablet 10 mg PO DAILY PRN #90 tab 06/14/19 07/22/21 Rx albuterol sulfate 90 mcg/actuation 1 puffs INH Q6H PRN #8.5 gm 08/31/19 07/22/21 Rx aerosol inhaler (Proventil HFA) oxybutynin chloride 10 mg 10 mg PO DAILY #90 tab 01/15/20 07/22/21 Rx tablet,extended release 24 hr lidocaine 5 % topical patch 1 patch TRANSDERMAL QAM #1 ea 06/13/21 07/22/21 Rx polyethylene glycol 3350 17 gram 17 g PO DAILY PRN #14 ea 06/13/21 07/22/21 Rx oral powder packet (Miralax) sennosides 8.6 mg-docusate sodium 1 tab PO HS #7 tab 06/13/21 07/22/21 Rx 50 mg tablet (Senokot-S) levothyroxine 88 mcg tablet 88 mcg PO DAILYBB #90 tab 08/11/21 Rx (Synthroid) duloxetine 30 mg capsule,delayed 30 mg PO QPM #90 cap 08/12/21 Rx release Patient History Medical History Actinic keratosis Allergic rhinitis Asthma Bee sting Chest pain Cholelithiasis Depression with anxiety Diverticulitis Facial swelling Gait disturbance Hypothyroidism Lumbar canal stenosis Multiple sclerosis Multiple sclerosis Osteopenia Peripheral neuropathy Vitamin D deficiency disease Surgical History No pertinent past surgical history Family History Father Lung cancer Mother Brain cancer Grandmother Stroke Denies family history of Ovarian cancer Prostate cancer Myocardial infarction Breast cancer Colorectal cancer Social History Smoking Status: Never smoker Second Hand Exposure: Yes; Hx Alcohol Use: Yes Alcohol type: wine Hx Substance Use: No Preferred Language: Danish Communication Ability: Effective Visual Impairment: Partially Limited Hearing Ability: Normal 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 Beliefs That Will Affect Care: None marital status: Current Living Situation: Spouse current occupational status: retired How many Children do You have: 3 How many Children do You have Comment: 3 boys Other Information That Helps Us Care for You: No Feels Safe at Home: Yes Safety Concerns: Feels Safe At This Time Childhood Exposure to Second-Hand Smoke: No during the past year weight has: remained stable Dental Care, Regularly: Yes Physical Activity Frequency: 3-4 Times per Week Seatbelt Use: always Sunscreen Use: Yes Assistive Devices: None Review of Systems Constitutional: no fever and no chills Eyes: + blind spots; no diplopia and no eye pain Ear, Nose, Mouth, Throat: no ear pain and no hearing loss Respiratory: no cough and no dyspnea Cardiovascular: no chest pain and no palpitations Gastrointestinal: no constipation and no diarrhea/loose stools Genitourinary: + urinary urgency and + urinary incontinence Musculoskeletal: no muscle weakness and no muscle atrophy Integumentary: no rash and no lesions Neurologic: as per Subjective / HPI, + gait abnormality, + unsteadiness, + localized weakness and + memory loss; no tremor(s) and no headache(s) Psychiatric: no behavioral changes, no depression, no abnormal sleep pattern and no anxiety Hematologic / Lymphatic: no easy bruising and no lymphadenopathy Exam (Neuro) Constitutional: well developed and well nourished; no acute distress Eyes: PERRL (Pupils are both are regular, postsurgical, but reactive to light), normal accommodation and EOM intact bilaterally; + abnormal visual field confrontation (Right visual field loss with confrontation testing.), no fundoscopic abnormality, no nystagmus and no papilledema Cardiovascular: Vessels: normal carotid upstroke; no carotid bruit Neurologic: Oriented to:: Person, Place and Time Memory: Short Term Intact and Remote Intact Attention: Span Intact and Concentration Intact Language: Naming Objects and Repeating Phrases Speech Fluency: Dysarthria and Dysfluency Speech Aphasia: negative Aphasia Fund of Knowledge: Current Events, Past History and Vocabulary Cranial Nerves: Normal II (Visual casey full to confrontation, visual acuity normal), III, IV, (Pupils equal round reactive to light and accommodation, eye movements normal), V (Facial sensation intact), VIII (Hearing intact), IX, X (Palate elevates to midline), XI (Shoulder shrug intact) and XII (Tongue protrudes to midline); Abnorm VII (There is right lower facial weakness noted.) Motor Strength: Hemiparesis (Face and arm greater than leg.) Laterality: Right; negative Normal Lower Extremities, Normal Upper Extremities or Pronator Drift Motor Tone: Normal Lower Extremities and Normal Upper Extremities Muscle Bulk/Involuntary Movements: No Involuntary Movements; negative Muscle Atrophy Sensation: Light Touch Intact, Pain/Temperature Intact, Vibration Intact and Proprioception Intact Coordination: Normal, Finger-Nose Abnormal Laterality: Right and Heel-Akbar Abnormal Laterality: Right; negative Limited Balance or Dysdiadochokinesia Deep Tendon Reflexes: Rt Triceps: 2+, Lt Triceps: 2+, Rt Biceps: 2+, Lt Biceps: 2+, Rt Brachioradialis: 2+, Lt Brachioradialis: 2+, Rt Patellar: 3+, Lt Patellar: 2+, Rt Ankle: 3+ and Lt Ankle: 2+ Special Tests: Babinski Present (right) Details: Unable to evaluate gait in the context of patient's current neurological status. Results & Data ([facility]) Vital Signs (Past 12 Hours) Vital Signs Temp Pulse Pulse Resp BP BP Pulse Ox 12/08/21 09:30 36.7 C 86 16 186/97 H 97 12/08/21 08:00 36.6 C 91 H 16 160/106 H 96 12/08/21 06:46 86 20 99 12/08/21 06:42 36.9 C 76 19 187/98 H 96 12/08/21 06:11 80 18 94 12/08/21 05:46 192/116 H 12/08/21 05:26 93 H 20 224/123 H 99 12/08/21 04:01 107 H 23 183/118 H 99 12/08/21 04:00 94 H 19 98 12/08/21 03:54 105 H 19 99 12/08/21 03:53 207/121 H 12/08/21 03:30 37 C 98 H 14 207/121 H 98 Laboratory Results WBC 7.22, hemoglobin 12.6, hematocrit 37.1, MCV 92.8, platelet count 249, sodium 132, potassium 3.9, BUN 19, creatinine 0.74, glucose 111, hemoglobin A1c 5.4, calcium 8.4, magnesium 1.9, AST 12, ALT 11, troponin less than 0.03, triglycerides 108, cholesterol 161, LDL 98, VLDL 22, HDL 41, TSH 2.119. Diagnostic Findings CT of the head negative for hemorrhage or acute process. There is evidence of atrophy and chronic small vessel ischemic disease and old lacunar infarcts. There is no hydrocephalus. There is considerable periventricular white matter lucency suggestive of confluent, chronic, demyelinating lesions per my review of the images. CT angiography of the neck unremarkable, no stenosis, dissection, or occlusive lesion. MRA of the head revealed multifocal narrowing within the cerebral arteries and basilar artery, no evidence for occlusion or aneurysm. There is mild to moderate multifocal narrowing within the right MCA. No severe stenosis within the left MCA. An echocardiogram was negative for cardioembolic source, normal left ventricular systolic function, mild concentric left ventricular hypertrophy, no significant valvular disease, left atrial size normal. Electrocardiogram reveals a normal sinus rhythm. Coding Level of Care Code 41891 Initial In Care Lvl 3 Diagnoses Stroke I63.9 Multiple sclerosis G35
[2021-12-08] MEDS ORDERED: GADOBUTROL 65ML VIAL IV ONE (10:56)
--- NOTE | 2021-12-08 13:10 | Magnetic Resonance Report ---
MRI OF THE BRAIN COMBO CLINICAL HISTORY: Right-sided weakness. Facial droop. Multiple sclerosis. COMPARISON STUDY: CT of the brain dated 12/08/2021. MRI of the brain dated 04/04/2018. TECHNIQUE: MRI of the brain was performed utilizing various T1 and T2-weighted sequences in the axial , sagittal, and coronal planes. Contrast-enhanced sequences were acquired following the administratio n of 5.5 cc of Gadavist. The multiple sclerosis protocol was utilized. The examination is degraded by motion artifact. FINDINGS: Brain parenchyma: There is a 2.2 cm focus of restricted diffusion centered in the left periventricula r white matter and basal ganglia consistent with an acute to subacute infarct. No additional foci of acute ischemia are identified. There is no hemorrhage or mass effect. There is age-related involution al change noting advanced confluent signal abnormality throughout the subcortical and periventricular white matter. No enhancing mass lesion is identified on the postcontrast images. Additional small c hronic lacunar infarcts are noted in the left basal ganglia and the left cerebellar hemisphere. No ex tra-axial fluid collection is seen. The cerebellar tonsils are normal in configuration. Ventricles, sulci, and cisterns: Prominent secondary to involutional change. Pituitary and sella: Unremarkable. Intracranial vasculature: Normal flow voids are maintained at the skull base. Orbits: The bony orbits are grossly intact. Orbital contents are normal in appearance noting bilatera l ocular lens implants. Sinuses and mastoids: Clear. Calvarium: Unremarkable. Cervical cord: Partially visualized cervical spinal cord is normal in morphology and signal intensity . IMPRESSION: 1. There is a 2.2 cm acute to subacute infarct centered in the left periventricular white matter/basa l ganglia. 2. No additional foci of acute ischemia are identified. 3. There is no hemorrhage or mass effect. 4. Advanced confluent signal abnormality throughout the subcortical and periventricular white matter likely represents advanced microangiopathic change. Superimposed demyelination would be impossible to exclude, and this has not appreciably changed from the 04/04/2018 examination. 5. No abnormal postcontrast enhancement is identified. ACT 112: Negative or not required by law. Electronically signed by: Brando Wallace M.D. 12/08/2021 1:09 PM
[2021-12-09] MEDS: SODIUM CHLORIDE 0.9% 1,000 ML IV SCH (00:27)
[2021-12-09 05:21] LABS: Basophils # (auto) 0.02 K/uL (0-0.2); Basophils % (auto) 0.2 %; Eosinophils # (auto) 0.22 K/uL (0-0.5); Eosinophils % (auto) 2.6 %; Hematocrit (blood only) 38.4 % (37-47); Hemoglobin 13.1 g/dL (12.0-16.0); Immature Granulocytes # (auto) 0.01 K/uL (0.00-0.02); Immature Granulocytes % (auto) 0.1 %; Lymphocytes # (auto) 1.34 K/uL (1.2-3.4); Lymphocytes % (auto) 16.1 %; Mean Corpuscular Hemoglobin 31.1 pg (25-34); Mean Corpuscular Hgb Conc 34.1 g/dL (32-36); Mean Corpuscular Volume 91.2 fL (80-100); Mean Platelet Volume 9.8 fL (7.4-10.4); Monocytes # (auto) 0.73 K/uL (0.11-0.59); Monocytes % (auto) 8.8 %; Neutrophils % (auto) 72.2 %; Platelet Count 283 K/uL (130-400); RDW Coefficient of Variation 13.7 % (11.5-14.5); RDW Standard Deviation 45.5 fL (36.4-46.3); Red Blood Count 4.21 M/uL (4.2-5.4); White Blood Count 8.32 K/uL (4.8-10.8)
[2021-12-09 06:04] LABS: Calcium 8.4 mg/dl (8.5-10.1); Creatinine Clr Calc Pharmacy 59.5 ml/min; Est GFR (African American) 96.8 ml/min; Est GFR (Non-African American) 83.5 ml/min; Phosphorus 2.9 mg/dl (2.5-4.9); Potassium 3.6 mmol/L (3.5-5.1)
--- NOTE | 2021-12-09 06:34 | Hospitalist Progress Note ---
Date of Service December 09, 2021 Assessment & Plan (1) Neurological symptoms: (2) Multiple sclerosis: (3) Hypothyroidism: (4) Depression with anxiety: (5) Urinary incontinence: (6) Cholelithiasis: (7) Asthma: Plan: Risa Bird is an 81-year-old female with past medical history of multiple sclerosis, hypothyroidism, depression/anxiety, asthma, and urinary incontinence who was admitted to [facility] on 12/08 for acute left hemispheric CVA. Left Hemispheric CVA Right sided facial weakness, right-sided arm/ leg weakness, productive aphasia, MRI brain showing 2.2cm [id number] infarct centered in left periventricular white matter/basal ganglia. Suspect due to intracranial atherosclerotic disease based on CTA/MRI findings. - continue Aspirin 81mg PO daily and Atorvastatin 80mg PO daily - Stopped IVFs - permissive HTN with SBP goal 140-180 - Hydralazine PRN ordered for SBP >180 - Neuro consulted - appreciate recs - minced/moist diet per AUTOMOTIVE SALES MANAGER recs - PT/OT recommended inpatient rehab - CM to kindly assist with referrals Anxiety/depression With exacerbation in context of acute CVA. No SI/HI. - consulted Psychiatry for assistance - Continue home duloxetine 30mg PO QPM - patient may benefit from transition to Citalopram at some point in the future, given robust data for Celexa in post-CVA depression Multiple sclerosis History of, without disease-modifying treatment since early 2019. MRI brain MS protocol without evidence for flare. - continue to follow with [facility] as outpatient Hypothyroidism TSH 2.119 on 12/08/2021. - Continue home Synthroid Asthma - Albuterol as needed Allergic rhinitis - Continue cetirizine Urinary incontinence - Continue oxybutynin DVT ppx: SCDs, chemoppx contraindicated at this time FEN/GI: heart-healthy and minced/moist diet Dispo: downgrade to med/surg, [facility] can accept patient tomorrow - d/c if medically stable CODE STATUS: DNR/DNI Admission and Anticipated Discharge Date Admission Date: December 08, 2021 Supervising Physician Co-Signing Physician Notes Attending attestation Pt seen and examined in concert with Dr. Caputo. In agreement with the documented findings as noted in the resident documentation with any exceptions or additions as noted here. Ongoing difficulty with coordination and some slurring of speech intermittently. Significant tearfulness and feelings of sadness/depression regarding the negative impacts of CVA follow 'working hard to live a healthy life'. History of MDD with control per patient on duloxetine without chronic changes. Open to working with PT/OT, actively engaged. On examination, S1/S2 nl RRR no MCG. CTAB. Abd NT/ND BS+ve. 1/5 of the RUE strength, 2-/5 RLE strength on examination. Speech delay with satisfactory articulation of thought grossly Left periventricular/basal ganglia CVA in the setting of multiple sclerosis - PT/OT, neurology consult - ASA, statin therapy, BP guidelines as noted HTN - improved today, continue hydralazine PRN MDD in the setting of acute stressor - restart duloxetine at chronic dose when able and encourage connection with therapy and PCP for further management chroni oriana. Extensive counseling regarding current status, causative factors, normalization of experience and supportive care moving forward with engagement with family and supportive medical team. Else see resident documentation as noted. Subjective This morning patient reports feeling like she can't eat breakfast properly due to her "body not listening to what she wants it to do". Reports that she cannot move her right arm and can only minimally move her right toes. Denies new neurological deficits. Does report feeling overwhelmed and depressed due to her stroke-related deficits. She is motivated to go through rehab process and denies SI/HI, but would like to speak more with therapy/psychiatry. Denies fever/chills, chest pain, SOB, N/V, diarrhea, abdominal pain, rash. Review of Systems Review of Systems: All systems reviewed & are unremarkable except as noted in HPI & below Physical Exam Physical Exam: General: A&Ox3. NAD. Cooperative. HEENT: Atraumatic, normocephalic. Pulm: CTAB A&P. -wheezes, -rales, -rhonchi. Symmetrical chest rise. No increase work of breathing. No respiratory distress. Cardiac: RRR, -mrg. Radial pulses intact and symmetrical. No LE edema. Abdominal: soft, non-tender, non-distended, BS x 4 Skin: warm, dry, no rash Neurologic: Speech / Cognition: + expressive aphasia (+dysarthria) Cranial Nerves: PERRL, normal accommodation, EOM intact bilaterally, normal facial strength (right lower facial droop, forehead muscles intact), tongue midline, normal hearing, able to rotate head bilaterally, able to elevate shoulders bilaterally and no nystagmus Coordination: normal [id number] test 2- 3/5 strength in RUE and 3-4/5 strength in RLE (improved) Results & Data Results & Data ([facility]) Vital Signs (Past 12 Hours) Vital Signs Temp Pulse Resp BP Pulse Ox 12/09/21 04:00 89 14 12/09/21 03:50 91 H 14 12/09/21 03:44 93 H 22 145/74 H 12/09/21 03:40 36.8 C 83 23 99 12/09/21 00:00 89 12/08/21 23:20 94 H 18 96 12/08/21 23:16 90 12 188/98 H 96 12/08/21 23:15 36.9 C 89 14 178/104 H 95 12/08/21 23:10 83 15 12/08/21 23:00 86 16 12/08/21 20:01 94 H 15 167/100 H 96 Resident Activity Tracking Resident Involvement: Resident Care Provided Care Provided: Adult Hospital Medicine
[2021-12-09] MEDS: ATORVASTATIN 40 MG TAB PO SCH (07:45)
[2021-12-09] MEDS: ASPIRIN 81 MG ECTAB PO SCH (07:45)
[2021-12-09] MEDS: LIDOCAINE 5% 1 PATCH TD SCH (07:46)
--- NOTE | 2021-12-09 10:17 | Neurology Progress Note ---
Date of Service December 09, 2021 Assessment & Plan (1) Acute CVA (cerebrovascular accident): (2) Multiple sclerosis: Plan: Acute left periventricular/basal ganglia ischemic stroke resulting in a right hemiparesis. Agree with daily low-dose aspirin and atorvastatin. Goal LDL less than 70. Consider mobile cardiac outpatient telemetry. Patient discontinued disease modifying therapy for MS a few years ago. Her demyelinating disease has been clinically stable. Would not recommend restarting treatment for MS in this patient. PT/OT/speech therapy. Patient may follow-up in neurology clinic with Dr. Torre or one of our advanced practice clinicians in 2 to 3 weeks. Admission and Anticipated Discharge Date Admission Date: December 08, 2021 Subjective Follow-up for stroke The patient continues to exhibit significant right-sided weakness, arm greater than leg. Her speech remains slightly slowed and dysarthric although not truly aphasic. She does not have an obvious right visual field deficit with confrontation testing today. She denies headache or other new neurological symptoms at this time. Review of Systems Eyes: no blind spots and no diplopia Neurologic: as per Subjective / HPI and + localized weakness; no headache(s) Results & Data ([facility]) Vital Signs (Past 12 Hours) Vital Signs Temp Pulse Pulse Resp BP BP Pulse Ox 12/09/21 08:00 36.8 C 94 H 14 141/84 H 96 12/09/21 04:00 89 14 12/09/21 03:50 91 H 14 12/09/21 03:44 93 H 22 145/74 H 12/09/21 03:40 36.8 C 83 23 99 12/09/21 00:00 89 12/08/21 23:20 94 H 18 96 12/08/21 23:16 90 12 188/98 H 96 12/08/21 23:15 36.9 C 89 14 178/104 H 95 12/08/21 23:10 83 15 12/08/21 23:00 86 16 Laboratory Results WBC 8.32, hemoglobin 13.1, hematocrit 38.4, platelet count 283, sodium 141, potassium 3.6, BUN 12, creatinine 0.63, glucose 101, calcium 8.4, magnesium 2.0. Lipid panel completed yesterday reviewed. Triglycerides 108, cholesterol 161, LDL 98, VLDL 22, HDL 41. Diagnostic Findings Brain MRI completed yesterday revealed an acute 2.2 cm infarct within the left periventricular white matter/basal ganglia. Advanced confluent signal abnormality throughout the subcortical and periventricular white matter consistent with patient's history of multiple sclerosis observed as well. No abnormal postcontrast enhancement. I reviewed the images as well as the radiologist's interpretation of this test. Echocardiogram completed yesterday was negative for cardioembolic source. CT angiography of the head and neck completed yesterday revealed multifocal narrowing within the cerebral arteries, otherwise no significant occlusive lesion identified within the head or neck. Exam (Neuro) Neurologic: Oriented to:: Person, Place and Time Attention: Span Intact and Concentration Intact Speech Fluency: Dysarthria and Dysfluency Speech Aphasia: negative Aphasia Fund of Knowledge: Current Events, Past History and Vocabulary Cranial Nerves: Normal II, III, IV, , V, VIII, IX, X, XI and XII; Abnorm VII (Right facial weakness noted) Motor Strength: Hemiparesis Laterality: Right Special Tests: Babinski Present (right) Coding Level of Care Code 41007 Subseq Hosp Care Lvl 2 Diagnoses Acute CVA (cerebrovascular accident) I63.9 Multiple sclerosis G35
[2021-12-09] MEDS ORDERED: DULoxetine HCL 30 MG CAP PO SCH (21:00)
[2021-12-09] MEDS: HEPARIN SOD 5,000 UNIT/0.5 ML VIAL SQ SCH (21:09)
[2021-12-10 06:03] LABS: Basophils # (auto) 0.04 K/uL (0-0.2); Basophils % (auto) 0.5 %; Eosinophils # (auto) 0.36 K/uL (0-0.5); Eosinophils % (auto) 4.7 %; Hematocrit (blood only) 42.2 % (37-47); Hemoglobin 14.2 g/dL (12.0-16.0); Lymphocytes # (auto) 1.74 K/uL (1.2-3.4); Lymphocytes % (auto) 22.6 %; Mean Corpuscular Hgb Conc 33.6 g/dL (32-36); Mean Corpuscular Volume 92.1 fL (80-100); Mean Platelet Volume 9.8 fL (7.4-10.4); Monocytes # (auto) 0.59 K/uL (0.11-0.59); Monocytes % (auto) 7.7 %; Neutrophils # (auto) 4.98 K/uL (1.4-6.5); Neutrophils % (auto) 64.5 %; Platelet Count 291 K/uL (130-400); RDW Coefficient of Variation 13.9 % (11.5-14.5); RDW Standard Deviation 46.7 fL (36.4-46.3); Red Blood Count 4.58 M/uL (4.2-5.4); White Blood Count 7.71 K/uL (4.8-10.8)
[2021-12-10 06:28] LABS: BUN Creatinine Ratio 18.5 (10-20); Calcium 8.8 mg/dl (8.5-10.1); Creatinine Clr Calc Pharmacy 57.6 ml/min; Est GFR (African American) 95.8 ml/min; Est GFR (Non-African American) 82.7 ml/min; Magnesium 2.1 mg/dl (1.7-2.4); Potassium 4.1 mmol/L (3.5-5.1)
[2021-12-10] MEDS ORDERED: LEVOTHYROXINE SODIUM 88 MCG TABLET PO SCH (06:30)
--- NOTE | 2021-12-10 06:47 | Discharge Summary ---
Date of Service December 10, 2021 Admission HPI Per Admitting Provider Risa Bird is an 81-year-old female with past medical history of multiple sclerosis, hypothyroidism, depression/anxiety, asthma, and urinary incontinence who presented to [facility] due to neurologic symptoms for the past few hours. History taken from patient and in the room. Earlier tonight, around 11:30 PM, patient noticed weakness on the right side of her body, especially of the arm and leg. Her states that she had been trying to ambulate in [place] and she fell sideways onto the floor. He rushed to her side to try to help her up and states that the patient was unable to stand on her own. At that point, she had difficulty speaking. Her decided to call EMS at this point. The patient does not have any prior history of the symptoms. Of note, patient has history of chronic MS for which she has followed with [facility] neurology in the past has not followed with them since 2019. She stopped disease modifying treatment in early 2019. She has a history of gait disturbance, however, current symptoms seem to be more acute for her. She does not have an established history of hyperlipidemia, diabetes. Per EMS report and according to ED provider, patient symptoms seem to wax and wane. At varying times she has had right-sided facial droop, right arm, and right leg weakness but these will intermittently disappear after a few minutes and then return. Per ED provider, [place] telestroke was consulted, and while [place] provider was speaking to patient her symptoms had resolved. ED provider walked into the room while [place] neurologist was still on the call, and at that point she reassessed the patient and symptoms had returned. Neurologist reiterated that the symptoms were not there at the time of his evaluation. In the ED, patient had CT head negative for acute intracranial process. CTA of head and neck showed no significant large vessel occlusion. See images for stat rad report official read from [facility] radiology pending. [place] telestroke recommended continuation of IV fluids, blood pressure control to maintain SBP under 220 and DBP under 110, as well as further imaging with brain MRI. Upon my evaluation, patient does continue to have right-sided facial droop, as well as right arm and leg weakness. She is able to communicate appropriately and answer my questions. Her is at bedside and provides supplemental information. She denies chest pain, palpitations, nausea, vomiting, shortness of breath, abdominal pain, headache, vision changes, dizziness at this time. Admission Exam Per Admitting Provider GENERAL: A&Ox3. NAD. HEENT: PERRL, EOMI. Moist mucous membranes. NECK: No JVD. No lymphadenopathy. CHEST/LUNGS: CTAB A/P. No crackles, wheezes, rales, rhonchi. HEART: RRR. No m/g/r. No carotid bruits. ABDOMEN: NT/ND, soft. BS+ x4 EXTREMITIES: No cyanosis, no clubbing, no edema SKIN: Warm and dry. No rashes or lesions. PSYCHIATRIC: Euthymic affect, no SI, no pressured speech, no hallucinations NEUROLOGIC: Speech impaired due to right-sided facial droop. Patient is unable to move right arm, able to move right leg but weak when compared to her left leg. Left arm with full ROM. She is able to answer questions appropriately. Principal Diagnosis Left Hemispheric CVA Discharge Exam General: A&Ox3. NAD. Cooperative. HEENT: Atraumatic, normocephalic. Pulm: CTAB A&P. -wheezes, -rales, -rhonchi. Symmetrical chest rise. No increase work of breathing. No respiratory distress. Cardiac: RRR, -mrg. Radial pulses intact and symmetrical. No LE edema. Abdominal: soft, non-tender, non-distended, BS x 4 Skin: warm, dry, no rash Neurologic Speech / Cognition: + expressive aphasia (+dysarthria) Motor/Sensory: no sensory deficit Cranial Nerves: PERRL, normal accommodation, EOM intact bilaterally, normal facial strength (right lower facial droop, forehead muscles intact), tongue midline, normal hearing, able to rotate head bilaterally, able to elevate shoulders bilaterally and no nystagmus Coordination: normal [id number] test 5/5 strength in RUE (significant improvement) and 4-5/5 strength in RLE (significant improvement) Discharge Data Allergies Allergy/AdvReac Type Severity Reaction Status Date / Time animal dander Allergy Intermediate SNEEZING, Verified 07/22/21 12:52 CONGESTION gluten Allergy Intermediate GLUTEN Verified 07/22/21 12:52 INTOLERANT-GI UPSET ibuprofen Allergy Mild ? UNKNOWN Verified 07/22/21 12:52 - "SO LONG AGO" Sulfa (Sulfonamide Allergy Unknown DIARRHEA Verified 07/22/21 12:52 Antibiotics) donepezil AdvReac Intermediate nightmares Verified 07/22/21 12:52 lactase [From Dairy Aid] AdvReac Intermediate Gastrointestinal Verified 07/22/21 12:52 Upset baclofen AdvReac Unknown CAN'T Verified 07/22/21 12:52 REMEMBER chocolate flavor AdvReac Unknown CAN'T Verified 07/22/21 12:52 REMEMBER lactose AdvReac Unknown Gastrointestinal Verified 07/22/21 12:52 Upset peanut AdvReac Unknown Gastrointestinal Verified 07/22/21 12:52 Upset sulfabenzamide AdvReac Unknown CAN'T Verified 07/22/21 12:52 REMEMBER sulfamethoxazole AdvReac Unknown CAN'T Verified 07/22/21 12:52 [From Bactrim] REMEMBER trimethoprim [From Bactrim] AdvReac Unknown CAN'T Verified 07/22/21 12:52 REMEMBER Consultations 12/08/21 04:44 ED Decision to Admit Stat 12/08/21 06:32 Consult Neurology Routine 12/09/21 11:14 Consult Psychiatry Routine Ordered Studies 12/08/21 03:29 CT angio head w con Urgent CT angio neck with con Urgent CT head/brain wo con Urgent 12/08/21 06:32 MR brain MS wo/w con Routine Hospital Course (1) Acute CVA (cerebrovascular accident): Risa Bird is an 81-year-old female with past medical history of multiple sclerosis, hypothyroidism, depression/anxiety, asthma, and urinary incontinence who was admitted to [facility] from 12/08 - 12/10 for acute left hemispheric CVA. Left Hemispheric CVA Right sided facial weakness, right-sided arm/ leg weakness, productive aphasia, MRI brain showing 2.2cm [id number]-[id number]-aqqslafi infarct centered in left periventricular white matter/basal ganglia. Acute ischemic stroke - suspect due to intracranial atherosclerotic disease based on CTA/MRI findings. - given Aspirin 300x1 on presentation to ED and continued on Aspirin 81mg PO daily thereafter - continue on discharge - started Atorvastatin 80mg PO daily - continue on discharge - permissive HTN with SBP goal 140-180 - was largely kept in this range throughout hospitalization - Hydralazine PRN given on one occasion for SBP >180 - patient significantly improved throughout hospitalization - RUE strength from 0/5 to 5/5, RLE strength 1-2/5 to 4-5/5, and right lower facial muscle strength significantly improved - Neuro consulted - will see patient 2-3 weeks after discharge - CLOTH HAND felix performed - recommended minced/moist diet - continue after discharge - PT/OT recommended inpatient rehab - patient accepted to [facility] and will be transported on 12/10 Depression With exacerbation in context of acute CVA. No SI/HI. - Spoke with patient extensively on 12/09 - patient has a great support system in her and children who live in town, and feels motivated to go through the rehabilitation process. She is open to further titration of home Duloxetine, but not at this point in time. On re-evaluation on 12/10, patient was in much better spirits and was thankfully significantly improved in her speech and right-sided strength. - Continue home duloxetine 30mg PO QPM - patient may benefit from transition to Citalopram at some point in the future, given robust data for Celexa in post-CVA depression - will defer to PCP - f/u with PCP for further optimization of med regimen Multiple sclerosis History of, without disease-modifying treatment since early 2019. MRI brain MS protocol without evidence for flare. - Neuro consulted as stated above, and does not recommend disease-modifying treatment at this time - continue to follow with [facility] [place] [place] Neurology as outpatient Hypothyroidism TSH 2.119 on 12/08/2021. - Continue home Synthroid Asthma - Albuterol as needed Allergic rhinitis - Continue cetirizine Urinary incontinence - Continue oxybutynin DVT ppx: Heparin 5000 units SQ Q12H FEN/GI: heart-healthy and minced/moist diet CODE STATUS: DNR/DNI (2) Neurological symptoms: (3) Multiple sclerosis: (4) Hypothyroidism: (5) Depression with anxiety: (6) Urinary incontinence: (7) Cholelithiasis: (8) Asthma: Total Time Total Time Spent Total Time Spent (In Minutes): 30 minutes Discharge Plan Discharge Items Patient Disposition: Transfer Inpatient Rehab Fac Reason For Visit: ACUTE NEURO SYMPTOMS, STROKE ALERT Discharge Diagnosis: Left Hemispheric CVA Activity: Per Instructions section Non-emergency contact: Primary Care Provider and Neurologist Call non-emergency contact if: you have any medication questions Follow-up/Referrals: Farrukh Adams MD [Physician] - (please schedule follow up in 2-3 weeks) Agustin Delgado MD [Primary Care Provider] - (please schedule f/u in 1-2 weeks) Diet: Heart Healthy Diet Comment: minced and moist Addtl Attending Provider Instructions: Risa Bird is an 81-year-old female with past medical history of multiple sclerosis, hypothyroidism, depression/anxiety, asthma, and urinary incontinence who was admitted to [facility] from 12/08 - 12/10 for acute left hemispheric CVA. Left Hemispheric CVA Right sided facial weakness, right-sided arm/ leg weakness, productive aphasia, MRI brain showing 2.2cm yqses-[id number]-xlztsafr infarct centered in left periventricular white matter/basal ganglia. Acute ischemic stroke - suspect due to intracranial atherosclerotic disease based on CTA/MRI findings. - given Aspirin 300x1 on presentation to ED and continued on Aspirin 81mg PO daily thereafter - continue on discharge - started Atorvastatin 80mg PO daily - continue on discharge - permissive HTN with SBP goal 140-180 - was largely kept in this range throughout hospitalization - Hydralazine PRN given on one occasion for SBP >180 - patient significantly improved throughout hospitalization - RUE strength from 0/5 to 5/5, RLE strength 1-2/5 to 4-5/5, and right lower facial muscle strength significantly improved - Neuro consulted - will see patient 2-3 weeks after discharge - CLOTH HAND felix performed - recommended minced/moist diet - continue after discharge - PT/OT recommended inpatient rehab - patient accepted to [facility] and wi ll be transported on 12/10 Depression With exacerbation in context of acute CVA. No SI/HI. - Spoke with patient extensively on 12/09 - patient has a great support system in her and children who live in town, and feels motivated to go through the rehabilitation process. She is open to further titration of home Duloxetine, but not at this point in time. On re-evaluation on 12/10, patient was in much better spirits and was thankfully significantly improved in her speech and right-sided strength. - Continue home duloxetine 30mg PO QPM - patient may benefit from transition to Citalopram at some point in the future, given robust data for Celexa in post-CVA depression - will defer to PCP - f/u with PCP for further optimization of med regimen Multiple sclerosis History of, without disease-modifying treatment since early 2019. MRI brain MS protocol without evidence for flare. - Neuro consulted as stated above, and does not recommend disease-modifying treatment at this time - continue to follow with [facility] [place] [place] Neurology as outpatient Hypothyroidism TSH 2.119 on 12/08/2021. 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 Some specific ways to lower your chance of stroke are: * If you are a smoker, now is the time to stop smoking cigarettes * If you are diabetic, improve the control of your blood sugars * Avoid excessive amounts of alcohol * Control high blood pressure * Lose weight if you are overweight * Be sure to lead an active lifestyle * Eat a healthy diet low in salt, cholesterol and fat You should know about other risk factors for stroke that you are unable to control. These include: * Age 55 years or older * Male gender * Certain racial groups: , or / * Family History of Stroke, Mini stroke or Heart Attack * Sickle Cell Disease Follow Up: It is important for you to keep your follow up appointments with your medical provider. Who to Call and When: Medical Emergencies: Call 911 immediately if you experience any of the following warning signs and symptoms of Stroke: * Sudden numbness or weakness of the face, arm or leg, especially on one side of the body * Sudden confusion, trouble speaking or understanding * Sudden trouble seeing in one or both eyes * Sudden trouble walking, dizziness, loss of balance or coordination * Sudden severe headache with no cause Do not delay calling 911 if you experience any warning signs or symptoms of a stroke. Delay in seeking medical attention may affect what treatments can be given to you. . Pending Studies at Discharge: No Stand-Alone Forms: Medications to Prevent Stroke, [facility] Skilled Items Patient informed of condition?: Yes DNR: Yes Discharge Level of Care: Acute rehab Communicable Disease: No Discharge Prognosis: Improving Lines: None Urinary Catheter: No Medications and DC Order Prescriptions: New atorvastatin 40 mg Tablet 80 mg PO QAM Qty: 30 RF: 2 aspirin 81 mg Tablet,Delayed Release (Dr/Ec) 81 mg PO QAM 30 Days Qty: 30 RF: 2 Continued cetirizine 10 mg tablet 10 mg PO DAILY PRN (Reason: allergy symptoms) Qty: 90 RF: 1 oxybutynin chloride 10 mg tablet extended release 24hr 10 mg PO DAILY Qty: 90 RF: 1 Hold Instructions: no longer takes levothyroxine [Synthroid] 88 mcg tablet 88 mcg PO DAILYBB Qty: 90 RF: 3 duloxetine 30 mg capsule,delayed release(DR/EC) 30 mg PO QPM Qty: 90 RF: 3 multivitamin [Daily Multi-Vitamin] tablet 1 tab PO QAM RF: 0 ascorbic acid (vitamin C) 500 mg capsule 500 mg PO DAILY RF: 0 albuterol sulfate [Proventil HFA] 90 mcg/actuation HFA aerosol inhaler 1 puffs INH Q6H PRN (Reason: shortness of breath or wheezing) Qty: 8.5 RF: 0 polyethylene glycol 3350 [Miralax] 17 gram Powder In Packet 17 g PO DAILY PRN (Reason: constipation) Qty: 14 RF: 0 sennosides-docusate sodium [Senokot-S] 8.6-50 mg Tablet 1 tab PO HS Qty: 7 RF: 0 lidocaine 5 % Adhesive Patch,Medicated 1 patch transdermal QAM Qty: 1 RF: 0 Discharge Orders: Discharge Order (Routine); Ordered 12/10/21 Ordered By: Aleksandr Caputo Admission Data Admit Date/Time: 12/08/21 05:04 Attending Provider: Ash Cazares Admit Provider: Rickie Cavazos Primary Care Provider: Agustin Delgado V. Other [facility] ; Adrian Hilario Brian A. Supervising Physician Co-Signing Physician Notes Attending attestation Pt seen and examined in concert with Dr. Caputo. In agreement with the documented findings as noted in the resident documentation with any exceptions or additions as noted here. SIGNIFICANT improvement in strength, function and speech subjectively, as well as mood. On examination, S1/S2 nl RRR no MCG. CTAB. Abd NT/ND BS+ve. 4+/5 of the RUE strength, 4+/5 RLE strength on examination. Approaching baseline Left periventricular/basal ganglia CVA in the setting of multiple sclerosis - PT/OT, neurology consult - ASA, statin therapy, BP guidelines as noted HTN - improved today, warrants outpatient monitoring and consideration of treatment wtih escalation MDD in the setting of acute stressor - restart duloxetine at chronic dose Else see resident documentation as noted. Total attending time spent on this patients care on the day of discharge: 35 minutes. Resident Activity Tracking Resident Involvement: Resident Care Provided Care Provided: Adult Hospital Medicine
[2021-12-10] MEDS: HEPARIN SOD 5,000 UNIT/0.5 ML VIAL SQ SCH (09:19)
[2021-12-10] MEDS: ATORVASTATIN 40 MG TAB PO SCH (09:19)
[2021-12-10] MEDS: ASPIRIN 81 MG ECTAB PO SCH (09:19)
== END 2021-12-10 14:11 | DRG 65 ==
LOC: ED 03:26 → 1E 05:04 → SUATTDRO 05:04 → 1E 06:46 → 2N 12-09 17:31